=== PATIENT | female | born 1955 | race American Indian/Alaskan Native ===

== ENCOUNTER 2022-03-16 19:03 | Inpatient (IN) | payer MEDICARE, MEDICAID ==
--- NOTE | 2022-03-17 06:31 | Emergency Department Report ---
HPI - General Chief Complaint: Extremity Injury, Lower Time Seen by Provider: 03/17/22 06:13 - HPI HPI: Room 18 The patient is a six 6-year-old female present with a chief complaint of bilateral lower extremity edema. Patient states for the past 2 days she has had swelling in both lower extremities and dyspnea on exertion. Patient has a history of congestive heart failure and states she has been mostly compliant with the Lasix but did not take it yesterday. Patient admits to an episode of right-sided chest pressure yesterday but none today. Patient currently denies chest pain. ED Past Medical Hx - Past Medical History Hx Hypertension: Yes Hx Congestive Heart Failure: Yes Hx Diabetes: Yes Hx GERD: Yes Hx Arthritis: Yes Hx Seizures: Yes - Surgical History Past Surgical History?: No - Family History Family history: no significant - Social History Smoking Status: Never Smoker Substance Use Type: None (Denies illicit drug use) ED Review of Systems ROS: Stated complaint: BILATERAL LEG PAIN Other details as noted in HPI Constitutional: no symptoms reported Eyes: denies: eye pain ENT: denies: throat pain Respiratory: SOB with exertion Cardiovascular: chest pain Endocrine: no symptoms reported Gastrointestinal: denies: abdominal pain Genitourinary: denies: dysuria Musculoskeletal: denies: back pain Neurological: denies: headache Physical Exam - Physical Exam Vital Signs: Vital Signs 03/16/22 03/17/22 03/17/22 19:23 01:28 03:54 Temperature 98 F 98.3 F Pulse Rate 100 H 105 H 93 H Respiratory 16 18 29 H Rate Blood Pressure 108/85 Blood Pressure 130/111 [Right] O2 Sat by Pulse 95 97 98 Oximetry 03/17/22 03/17/22 03/17/22 04:00 04:16 04:30 Temperature Pulse Rate 114 H 97 H 96 H Respiratory 25 H 15 17 Rate Blood Pressure Blood Pressure [Right] O2 Sat by Pulse 98 96 94 Oximetry 03/17/22 04:46 Temperature Pulse Rate 105 H Respiratory 15 Rate Blood Pressure Blood Pressure [Right] O2 Sat by Pulse 95 Oximetry Physical Exam: GENERAL: The patient is well-developed well-nourished female lying on stretcher not appearing to be in acute distress. [] HEENT: Normocephalic. Atraumatic. Extraocular motions are intact. Patient has moist mucous membranes. NECK: Supple. Trachea midline CHEST/LUNGS: Clear to auscultation. There is no respiratory distress noted. HEART/CARDIOVASCULAR: Irregularly irregular. There is no tachycardia. There is no gallop rub or murmur. ABDOMEN: Abdomen is soft, nontender. Patient has normal bowel sounds. There is no abdominal distention. SKIN: There is no rash. There is 1+ right lower extremity pitting edema and trace left lower extremity pitting edema. There is no diaphoresis. NEURO: The patient is awake, alert, and oriented. The patient is cooperative. The patient has no focal neurologic deficits. The patient has normal speech. GCS 15 MUSCULOSKELETAL: There is no evidence of acute injury. ED Course Vital Signs 03/16/22 03/17/22 03/17/22 19:23 01:28 03:54 Temperature 98 F 98.3 F Pulse Rate 100 H 105 H 93 H Respiratory 16 18 29 H Rate Blood Pressure 108/85 Blood Pressure 130/111 [Right] O2 Sat by Pulse 95 97 98 Oximetry 03/17/22 03/17/22 03/17/22 04:00 04:16 04:30 Temperature Pulse Rate 114 H 97 H 96 H Respiratory 25 H 15 17 Rate Blood Pressure Blood Pressure [Right] O2 Sat by Pulse 98 96 94 Oximetry 03/17/22 04:46 Temperature Pulse Rate 105 H Respiratory 15 Rate Blood Pressure Blood Pressure [Right] O2 Sat by Pulse 95 Oximetry ED Medical Decision Making - Lab Data Result diagrams: 03/17/22 06:26 03/17/22 06:26 Laboratory Tests 03/17/22 03/17/22 03/17/22 06:26 06:26 06:26 WBC 8.9 RBC 5.06 H Hgb 15.1 H Hct 46.7 H MCV 92 MCH 30 MCHC 33 RDW 16.2 H Plt Count 182 Lymph % (Auto) 19.0 [place] % (Auto) 11.2 H Eos % (Auto) 0.4 Baso % (Auto) 0.5 Lymph # (Auto) 1.7 [place] # (Auto) 1.0 H Eos # (Auto) 0.0 Baso # (Auto) 0.0 Seg Neutrophils % 68.9 Seg Neutrophils # 6.1 Sodium 141 Potassium 4.0 Chloride 100.3 Carbon Dioxide 27 Anion Gap 18 BUN 29 H Creatinine 1.1 Estimated GFR 60 BUN/Creatinine Ratio 26 Glucose 175 H Calcium 9.8 Magnesium 1.90 Total Creatine Kinase 187 H CK-MB (CK-2) 1.8 CK-MB (CK-2) Rel Index 0.9 Troponin T 0.014 NT-Pro-B Natriuret Pep 4020 H TSH 2.000 Free T4 1.40 - EKG Data -: EKG Interpreted by Me EKG shows normal: sinus rhythm Rate: tachycardia (109 bpm) - EKG Data When compared to previous EKG there are: previous EKG unavailable Interpretation: other (Frequent ectopy) - Radiology Data Radiology results: report reviewed (Chest x-ray, bilateral lower extremity Doppler), image reviewed (Chest x-ray, bilateral lower extremity Doppler) interpreted by me: Chest [id number], pulmonary edema. No pneumothorax [address] [address] XRay Report Signed Patient: CJ GARCÍA MR#: [id number] 2 : 1955 Acct:[id number] Age/Sex: 66 / F ADM Date: 03/16/22 Loc: ED Attending Dr: Ordering Physician: KATHERINE FULTON MD Date of Service: 03/17/22 Procedure(s): XR chest 1V ap Accession Number(s): [id number] cc: KATHERINE FULTON MD Fluoro Time In Minutes: Chest single view INDICATION: Dyspnea IMPRESSION: Severe cardiomegaly with mild bilateral interstitial edema. Signer Name: Vic Han MD Signed: 03/17/2022 6:40 AM Workstation Name: [id number] Transcribed By: BC Dictated By: Vic Han MD Electronically Authenticated By: Vic Han MD Signed Date/Time: 03/17/22639 DD/ 9 TD/TT: [address] [address] Vascular Lab Report Signed Patient: CJ GARCÍA MR#: [id number] 2 : 1955 Acct:[id number] Age/Sex: 66 / F ADM Date: 03/16/22 Loc: ED Attending Dr: Ordering Physician: KATHERINE FULTON MD Date of Service: 03/17/22 Procedure(s): VL venous duplex LE BILAT Accession Number(s): [id number] cc: KATHERINE FULTON MD DUPLEX DOPPLER LOWER EXTREMITY VEINS, BILATERAL INDICATION: Pain and swelling. TECHNIQUE: Duplex doppler imaging was performed through the veins of both lower extremities using venous compression and other maneuvers. COMPARISON: None available. FINDINGS: Right Common femoral vein: Negative. Right Superficial femoral vein: Negative. Right Popliteal vein: Negative. Right Calf veins: Negative. Left Common femoral vein: Negative. Left Superficial femoral vein: Negative. Left Popliteal vein: Negative. Left Calf veins: Negative. Additional findings: None. IMPRESSION: Negative for DVT. Signer Name: Renny Agosto MD Signed: 03/17/2022 9:37 AM Workstation Name: [id number] Transcribed By: ES Dictated By: Renny Agosto MD Electronically Authenticated By: Renny Agosto MD Signed Date/Time: 03/17/22936 DD/ 6 TD/TT: - Differential Diagnosis CHF exacerbation, ACS, DVTs, peripheral edema Critical care attestation.: If time is entered above; I have spent that time in minutes in the direct care of this critically ill patient, excluding procedure time. ED Disposition Clinical Impression: CHF exacerbation Disposition: ADMITTED INPATIENT Is pt being admited?: Yes Does the pt Need Aspirin: Yes Condition: Fair Referrals: PRIMARY CARE, [Primary Care Provider] - 3-5 Days Time of Disposition: 09:49 (Care transferred to hospitalist Dr. Nowak (discussed with Dr. Esparza)) HEART Score - HEART Score History: Slightly suspicious EKG: Non-specific Age: > 65 Risk factors: > 3 risk factors or hx of atherosclerotic disease Troponin: Troponin T 0.014 ng/mL (0.00-0.029) 03/17/22 06:26 Troponin: < normal limit HEART Score: 5
--- NOTE | 2022-03-17 06:45 | XRay Report ---
Chest single view INDICATION: Dyspnea IMPRESSION: Severe cardiomegaly with mild bilateral interstitial edema. Signer Name: Vic Han MD Signed: 03/17/2022 6:40 AM Workstation Name: [email or web address]
[2022-03-17 07:07] LABS: Basophils % (Auto) 0.5 % (0.0-1.8); Eosinophils % (Auto) 0.4 % (0.0-4.3); Hematocrit 46.7 % (30.3-42.9); Hemoglobin 15.1 gm/dl (10.1-14.3); Lymphocytes # (Auto) 1.7 K/mm3 (1.2-5.4); Mean Corpuscular HGB Conc 33 % (30-34); Mean Corpuscular Volume 92 fl (79-97); Monocytes % (Auto) 11.2 % (0.0-7.3); Platelet Count 182 K/mm3 (140-440); Red Blood Count 5.06 M/mm3 (3.65-5.03); Red Cell Distribution Width 16.2 % (13.2-15.2)
[2022-03-17 07:33] LABS: Calcium 9.8 mg/dL (8.4-10.2); Creatine Kinase MB 1.8 ng/mL (0.0-4.0)
[2022-03-17 07:38] LABS: Free T4 (Free Thyroxine) 1.4 ng/dL (0.76-1.46)
[2022-03-17] MEDS ORDERED: FUROSEMIDE 40 MG/4 ML INJ IV ONE (07:42)
--- NOTE | 2022-03-17 09:41 | Vascular Lab Report ---
DUPLEX DOPPLER LOWER EXTREMITY VEINS, BILATERAL INDICATION: Pain and swelling. TECHNIQUE: Duplex doppler imaging was performed through the veins of both lower extremities using venous tank miguel and other maneuvers. COMPARISON: None available. FINDINGS: Right Common femoral vein: Negative. Right Superficial femoral vein: Negative. Right Popliteal vein: Negative. Right Calf veins: Negative. Left Common femoral vein: Negative. Left Superficial femoral vein: Negative. Left Popliteal vein: Negative. Left Calf veins: Negative. Additional findings: None. IMPRESSION: Negative for DVT. Signer Name: Renny Agosto MD Signed: 03/17/2022 9:37 AM Workstation Name: [email or web address]
[2022-03-17] MEDS ORDERED: ASPIRIN 325 MG TAB PO ONE (09:54)
[2022-03-17] MEDS ORDERED: MORPHINE 2 MG/1 ML INJ IV PRN (10:17)
[2022-03-17] MEDS ORDERED: ONDANSETRON 4 MG/2 ML INJ IV PRN ×2 (10:17→12:00)
[2022-03-17] MEDS ORDERED: ACETAMINOPHEN 325 MG TAB PO PRN ×2 (10:17→12:00)
--- NOTE | 2022-03-17 10:50 | History and Physical Report ---
History of Present Illness Date of admission: 03/17/22 10:17 Chief complaint: My legs are swollen History of present illness: 66 YO Female with OA, CHF, HTN, GERD, Seizure Disorder, DM, Obesity Hypoventilation Syndrome, Vascular Dementia with Tangential thinking, Cerebral Atherosclerosis presents to ED for evaluation. Patient reports "my legs hurt". Patient states that over the past 1 week she has experienced pain and swelling to her lower extremities. Patient knowledges decreased exercise tolerance, shortness of breath, dyspnea on exertion, dyspnea at rest, orthopnea, paroxysmal nocturnal dyspnea, as well as 10 pound weight gain over the past 1 week. Patient acknowledges noncompliance with diuretic therapy. Patient also acknowledges noncompliance with low-sodium diet. Additional history provided by the patient's son who was negative available via telephone for interview. Patient's son reports that the patient experienced increased weakness and confusion over the past several weeks. EMS was notified and upon arrival the patient was found to be in distress and subsequent transported to [facility] for further care and evaluation of the aforementioned symptoms. The patient was seen and evaluated in the emergency department. All lab and imaging studies reviewed. Patient found to have clinical syndrome consistent with CHF decompensation. Patient admitted to telemetry and initiated on CHF protocol. Cardiology team consulted in ED. Patient denies fever, chills, chest pain, palpitation, productive cough, skin rash, recent contact, or known exposure to COVID-19. No prior admission for review. No medication listed at time of admission for reconciliation. Advanced care planning conducted in ED. Past History Past Medical History: arthritis, GERD, heart failure, hypertension, other (See HPI) Past Surgical History: No surgical history, Other (Reviewed) Social history: single. denies: smoking, alcohol abuse, prescription drug abuse Family history: diabetes, hypertension Medications and Allergies Allergies Allergy/AdvReac Type Severity Reaction Status Date / Time No Known Allergies Allergy Unverified 03/16/22 19:27 Active Meds: Active Medications Acetaminophen (Acetaminophen 325 Mg Tab) 650 mg PO Q4H PRN PRN Reason: Pain MILD(1-3)/Fever >100.5/LIM Morphine Sulfate (Morphine 2 Mg/1 Ml Inj) 2 mg IV Q4H PRN PRN Reason: Pain, Moderate (4-6) Ondansetron HCl (Ondansetron 4 Mg/2 Ml Inj) 4 mg IV Q8H PRN PRN Reason: Nausea And Vomiting Sodium Chloride (Sodium Chloride 0.9% 10 Ml Flush Syringe) 10 ml IV BID MELVIN Sodium Chloride (Sodium Chloride 0.9% 10 Ml Flush Syringe) 10 ml IV PRN PRN PRN Reason: LINE FLUSH Review of Systems Constitutional: weight gain, weakness, no weight loss, no fever, no chills, no sweats Ears, nose, mouth and throat: no ear pain, no ear discharge, no tinnitis, no d ecreased hearing, no nasal congestion Cardiovascular: orthopnea, shortness of breath, dyspnea on exertion, leg edema, decreased exercise tolerance Respiratory: no cough, no cough with sputum, no excessive sputum, no hemoptysis Gastrointestinal: no abdominal pain, no nausea, no vomiting, no diarrhea, no constipation Genitourinary Female: no pelvic pain, no flank pain, no dysuria, no urinary frequency, no urgency Rectal: no pain, no incontinence Musculoskeletal: no neck stiffness, no neck pain, no shooting arm pain, no arm numbness/tingling, no low back pain, no shooting leg pain Integumentary: no rash, no pruritis, no redness, no sores, no wounds Neurological: no head injury, no transient paralysis, no paralysis, no weakness, no parathesias, no numbness, no tingling Psychiatric: no anxiety, no memory loss, no insomnia, no change in appetite, no change in libido Endocrine: no cold intolerance, no heat intolerance, no polyphagia, no excessive thirst, no polydipsia, no polyuria, no nocturia Hematologic/Lymphatic: no easy bruising, no easy bleeding Allergic/Immunologic: no urticaria, no allergic rhinitis, no wheezing Exam - Constitutional Vitals: Temp Pulse Resp BP Pulse Ox 98.3 F 88 16 111/81 100 03/17/22 01:28 03/17/22 09:29 03/17/22 09:29 03/17/22 09:29 03/17/22 09:29 General appearance: Present: mild distress, obese - EENT Eyes: Present: PERRL ENT: hearing intact, clear oral mucosa, hearing decreased - Neck Neck: Present: supple, normal ROM - Respiratory Respiratory effort: normal Respiratory: bilateral: diminished, rales - Cardiovascular Heart Sounds: Present: S1 & S2. Absent: rub, click - Extremities Extremity abnormal: edema Peripheral Pulses: within normal limits - Abdominal General gastrointestinal: Present: soft, non-tender, non-distended, normal bowel sounds Female genitourinary: Present: normal - Integumentary Integumentary: Present: clear, warm, dry - Musculoskeletal Musculoskeletal: generalized weakness - Psychiatric Psychiatric: no appropriate mood/affect, no intact judgment & insight, no memory intact, cooperative - Neurologic Neurologic: CNII-XII intact, no focal deficits, moves all extremities, no gait normal HEART Score - HEART Score EKG: Non-specific Age: > 65 Risk factors: > 3 risk factors or hx of atherosclerotic disease Troponin: Troponin T 0.014 ng/mL (0.00-0.029) 03/17/22 06:26 Troponin: < normal limit Results - Labs CBC & Chem 7: 03/17/22 06:26 03/17/22 06:26 Labs: Abnormal lab results 03/17/22 03/17/22 Range/Units 06:26 06:26 RBC 5.06 H (3.65-5.03) M/mm3 Hgb 15.1 H (10.1-14.3) gm/dl Hct 46.7 H (30.3-42.9) % RDW 16.2 H (13.2-15.2) % [place] % (Auto) 11.2 H (0.0-7.3) % [place] # (Auto) 1.0 H (0.0-0.8) K/mm3 BUN 29 H (7-17) mg/dL Glucose 175 H (65-100) mg/dL Total Creatine Kinase 187 H (30-135) units/L NT-Pro-B Natriuret Pep 4020 H (0-900) pg/mL Assessment and Plan - Patient Problems (1) CHF exacerbation Current Visit: Yes Status: Acute Qualifiers: Heart failure type: systolic Qualified Code(s): I50.23 - Acute on chronic systolic (congestive) heart failure Plan to address problem: CHF protocol: Strict I's/O, monitor urine output every shift, daily weight, afterload reduction, blood pressure control, diuresis, monitor fluid balance, echocardiogram ordered and pending at time of admission, cardiology team consulted, thyroid panel, magnesium level. (2) Obesity hypoventilation syndrome Current Visit: Yes Status: Acute Plan to address problem: Balanced diet, increase physical activity discharge, outpatient pulmonary follow-up for sleep study (3) Hypertension Current Visit: Yes Status: Acute Qualifiers: Hypertension type: primary hypertension Qualified Code(s): I10 - Essential (primary) hypertension Plan to address problem: Monitor blood pressure every shift, continue medical management. (4) Diabetes Current Visit: Yes Status: Acute Plan to address problem: Consistent carbohydrate diet, Accu-Chek, insulin protocol, hypoglycemia protocol. (5) Vascular dementia Current Visit: Yes Status: Acute Qualifiers: Dementia behavioral disturbance: with behavioral disturbance Qualified Code(s): F01.51 - Vascular dementia with behavioral disturbance Plan to address problem: Verbal prompting, verbal redirection, benzodiazepine therapy as clinically indicated. (6) Cerebral atherosclerosis Current Visit: Yes Status: Acute Plan to address problem: Risk factor reduction therapy, CT scan brain without contrast. (7) DVT prophylaxis Current Visit: Yes Status: Acute Plan to address problem: SCDs bilateral lower extremities while in bed (8) Advance care planning Current Visit: Yes Status: Acute Plan to address problem: Disease education conducted, care plan discussed, diagnoses discussed, prognosis discussed, patient is full code. Patient family acknowledges understanding and agreement with care plan, +30 minutes. (9) Preventative health care Current Visit: Yes Status: Acute Plan to address problem: Patient and family counseled regarding home safety, risk factor reduction, balanced diet, medication compliance. Outpatient follow-up with primary care physician for all age and risk factor appropriate screening test. +30 minutes.
[2022-03-17] MEDS ORDERED: oxyCODONE /ACETAMINOPHEN 5-325MG TAB PO PRN (12:00)
[2022-03-17] MEDS ORDERED: ALBUTEROL 2.5 MG/3 ML NEBU IH PRN (12:00)
[2022-03-17] MEDS ORDERED: HYDROmorphone 0.5 MG/0.5 ML INJ IV PRN (12:00)
--- NOTE | 2022-03-17 14:40 | Consultation ---
History of Present Illness Consult date: 03/17/22 Requesting physician: MICHELLE MOORE Consult reason: congestive heart failure History of present illness: Patient is 66-year-old female with a reported past medical history of hypertension, CHF, diabetes, obesity, vascular dementia who came to the ED with a complaint of leg pain, bilateral lower extremity edema, and shortness of breath x1 week. History is taken from chart due to patient's mental status at time of interview. Per documentation patient's son reported that patient was having weakness and confusion over past several week along with the above- mentioned symptom. Patient was transported to the ED for further evaluation. In the ED patient was found to have elevated BNP and CXR showed cardiomegaly with mild bilateral interstitial edema. At time of interview patient denies chest pain, orthopnea, palpitations, Past History Past Medical History: arthritis, GERD, heart failure, hypertension, other (See HPI) Past Surgical History: No surgical history, Other (Reviewed) Social history: single. denies: smoking, alcohol abuse, prescription drug abuse Family history: diabetes, hypertension Medications and Allergies Allergies Allergy/AdvReac Type Severity Reaction Status Date / Time No Known Allergies Allergy Unverified 03/16/22 19:27 Active Meds: Active Medications Acetaminophen (Acetaminophen 325 Mg Tab) 650 mg PO Q4H PRN PRN Reason: Pain MILD(1-3)/Fever >100.5/LIM Albuterol (Albuterol 2.5 Mg/3 Ml Nebu) 2.5 mg IH Q4HRT PRN PRN Reason: Shortness Of Breath Furosemide (Furosemide 20 Mg/2 Ml Inj) 20 mg IV 0600,1800 MELVIN Stop: 03/18/22 00:01 Hydromorphone HCl (Hydromorphone 0.5 Mg/0.5 Ml Inj) 0.5 mg IV Q23H PRN PRN Reason: Pain , Severe (7-10) Metoprolol Tartrate (Metoprolol Tartrate 25 Mg Tab) 12.5 mg PO BID MELVIN Morphine Sulfate (Morphine 2 Mg/1 Ml Inj) 2 mg IV Q4H PRN PRN Reason: Pain, Moderate (4-6) Ondansetron HCl (Ondansetron 4 Mg/2 Ml Inj) 4 mg IV Q8H PRN PRN Reason: Nausea And Vomiting Oxycodone/Acetaminophen (Oxycodone /Acetaminophen 5-325mg Tab) 1 tab PO Q16H PRN PRN Reason: Pain, Moderate (4-6) Sodium Chloride (Sodium Chloride 0.9% 10 Ml Flush Syringe) 10 ml IV BID MELVIN Sodium Chloride (Sodium Chloride 0.9% 10 Ml Flush Syringe) 10 ml IV PRN PRN PRN Reason: LINE FLUSH Stop: 03/22/22 10:56 Review of Systems All systems: negative Physical Examination Vital Signs Temp Pulse Resp BP Pulse Ox 98 F 100 H 16 130/111 95 03/16/22 19:23 03/16/22 19:23 03/16/22 19:23 03/16/22 19:23 03/16/22 19:23 General appearance: no acute distress, other (Patient appears confused alert to self) HEENT: Positive: Mucus Membranes Moist Cardiac: Positive: Reg Rate and Rhythm Lungs: Positive: clear to auscultation, Normal Breath Sounds Neuro: Positive: Grossly Intact Abdomen: Positive: Soft Skin: Negative: Rash, Suspicious Lesions, Ulceration Extremities: Present: upper extr. pulses, edema Results 03/17/22 06:26 03/17/22 06:26 Cardiac Enzymes 03/17/22 Range/Units 06:26 CK-MB (CK-2) 1.8 (0.0-4.0) ng/mL CBC 03/17/22 Range/Units 06:26 WBC 8.9 (4.5-11.0) K/mm3 RBC 5.06 H (3.65-5.03) M/mm3 Hgb 15.1 H (10.1-14.3) gm/dl Hct 46.7 H (30.3-42.9) % Plt Count 182 (140-440) K/mm3 Lymph # (Auto) 1.7 (1.2-5.4) K/mm3 [place] # (Auto) 1.0 H (0.0-0.8) K/mm3 Eos # (Auto) 0.0 (0.0-0.4) K/mm3 Baso # (Auto) 0.0 (0.0-0.1) K/mm3 Comprehensive Metabolic Panel 03/17/22 Range/Units 06:26 Sodium 141 (137-145) mmol/L Potassium 4.0 (3.6-5.0) mmol/L Chloride 100.3 (98-107) mmol/L Carbon Dioxide 27 (22-30) mmol/L BUN 29 H (7-17) mg/dL Creatinine 1.1 (0.6-1.2) mg/dL Glucose 175 H (65-100) mg/dL Calcium 9.8 (8.4-10.2) mg/dL - Imaging and Cardiology Echo: pending EKG: report reviewed, image reviewed EKG interpretations - Telemetry EKG Rhythm: Sinus Rhythm - EKG Sinus rhythms and dysrhythmias: sinus rhythm Ventricular dysrhythmias: ventricular premature com Repolarization changes or abnormalities: nonspecific abnormality, ST segment, and/or T wave Assessment and Plan Patient is 66-year-old female with a reported past medical history of hypertension, CHF, diabetes, obesity, vascular dementia who came to the ED with a complaint of leg pain, bilateral lower extremity edema, and shortness of breath x1 week and confusion over several weaks AMS-CT head pending CHF Hypertension Diabetes Obesity Plan: EKG shows sinus tach with PVCs and nonspecific T abnormalities. No acute ischemic changes. Troponins negative x1. Patient denies any complaints of chest pain BNP noted to be elevated and CXR shows mild interstitial edema. Agree with Lasix 20 mg IV twice daily for diuresis. We will stop Lasix after tonight Repeat BMP in the a.m., daily weights, strict I&O's, close monitoring of renal Will initiate low-dose metoprolol 12.5 mg p.o. twice daily. Will titrate as needed Will hold KATHARINA or ARB due to soft BP Attempted to reach out to patient's son who is listed as next of kin however no answer. We will attempt to reach out to patient's son tomorrow Preliminary echo results show EF of 10% with thrombus in LV will initiate anticoagulation with Lovenox with bridge therapy to Coumadin pharmacy to dose Patient for cardiac cath in the a.m. Patient to be n.p.o. after midnight Patient seen in conjunction with Dr. Bello who agrees with this plan of care - Patient Problems (1) CHF exacerbation Current Visit: Yes Status: Acute Qualifiers: Heart failure type: systolic Qualified Code(s): I50.23 - Acute on chronic systolic (congestive) heart failure (2) Obesity hypoventilation syndrome Current Visit: Yes Status: Acute (3) Hypertension Current Visit: Yes Status: Acute Qualifiers: Hypertension type: primary hypertension Qualified Code(s): I10 - Essential (primary) hypertension (4) Diabetes Current Visit: Yes Status: Acute (5) Vascular dementia Current Visit: Yes Status: Acute Qualifiers: Dementia behavioral disturbance: with behavioral disturbance Qualified Code(s): F01.51 - Vascular dementia with behavioral disturbance
--- NOTE | 2022-03-17 15:05 | Cat Scan Report ---
CT head/brain wo con INDICATION: confusion. TECHNIQUE: Routine CT head without contrast. All CT scans at this location are performed using CT dos e reduction for ALARA by means of automated exposure control. COMPARISON: None. FINDINGS: BRAIN / INTRACRANIAL CONTENTS: No acute hemorrhage, mass effect, midline shift, or hydrocephalus. No appreciable acute large territorial or lacunar infarct. 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 Mild global atrophy. ORBITS: No significant abnormality of visualized orbits. SINUSES / MASTOIDS: No significant abnormality of visualized sinuses and mastoid air cells. ADDITIONAL FINDINGS: None. IMPRESSION: 1. No acute intracranial abnormality. Signer Name: Rashaun Marie MD Signed: 03/17/2022 3:01 PM Workstation Name: [id number]
[2022-03-17] MEDS: METOPROLOL TARTRATE 25 MG TAB PO SCH ×2 (15:31→21:17)
[2022-03-17] MEDS ORDERED: FUROSEMIDE 20 MG/2 ML INJ IV SCH (18:00)
[2022-03-17] MEDS ORDERED: SODIUM CHLORIDE 0.9% 500 ML 500 ML IV SCH (19:00)
[2022-03-17] MEDS ORDERED: ENOXAPARIN 100 MG/1 ML INJ SUB-Q ONE (19:00)
[2022-03-18 05:27] LABS: Basophils # (Auto) 0.1 K/mm3 (0.0-0.1); Basophils % (Auto) 0.6 % (0.0-1.8); Eosinophils # (Auto) 0.1 K/mm3 (0.0-0.4); Eosinophils % (Auto) 1.4 % (0.0-4.3); Hemoglobin 14.6 gm/dl (10.1-14.3); Lymphocytes # (Auto) 2.2 K/mm3 (1.2-5.4); Lymphocytes % (Auto) 22.5 % (13.4-35.0); Mean Corpuscular HGB Conc 32 % (30-34); Mean Corpuscular Volume 93 fl (79-97); Monocytes # (Auto) 0.8 K/mm3 (0.0-0.8); Monocytes % (Auto) 8.8 % (0.0-7.3); Platelet Count 203 K/mm3 (140-440); Red Blood Count 4.93 M/mm3 (3.65-5.03); Red Cell Distribution Width 16.2 % (13.2-15.2)
[2022-03-18 05:34] LABS: INR 1.19 (0.87-1.13)
[2022-03-18 05:39] LABS: Partial Thromboplastin Time 30.1 Sec. (24.2-36.6)
[2022-03-18 05:45] LABS: Calcium 9.3 mg/dL (8.4-10.2)
[2022-03-18] MEDS: METOPROLOL TARTRATE 25 MG TAB PO SCH ×3 (08:29→21:15)
--- NOTE | 2022-03-18 11:22 | Progress Note ---
Assessment and Plan Assessment and plan: 66 YO Female with OA, CHF, HTN, GERD, Seizure Disorder, DM, Obesity Hypoventilation Syndrome, Vascular Dementia with Tangential thinking, Cerebral Atherosclerosis presents to ED for evaluation. Patient reports "my legs hurt". Patient states that over the past 1 week she has experienced pain and swelling to her lower extremities. Patient knowledges decreased exercise tolerance, shortness of breath, dyspnea on exertion, dyspnea at rest, orthopnea, paroxysmal nocturnal dyspnea, as well as 10 pound weight gain over the past 1 week. Patient acknowledges noncompliance with diuretic therapy. Patient also acknowledges noncompliance with low-sodium diet. Additional history provided by the patient's son who was negative available via telephone for interview. Patient's son reports that the patient experienced increased weakness and confusion over the past several weeks. EMS was notified and upon arrival the patient was found to be in distress and subsequent transported to [facility] for further care and evaluation of the aforementioned symptoms. The patient was seen and evaluated in the emergency department. All lab and imaging studies reviewed. Patient found to have clinical syndrome consistent with CHF decompensation. Patient admitted to telemetry and initiated on CHF protocol. Cardiology team consulted in ED. Patient denies fever, chills, chest pain, palpitation, productive cough, skin rash, recent contact, or known exposure to COVID-19. No prior admission for review. No medication listed at time of admission for reconciliation. Advanced care planning conducted in ED. Past History Past Medical History: arthritis, GERD, heart failure, hypertension, other (See HPI) Past Surgical History: No surgical history, Other (Reviewed) Social history: single. denies: smoking, alcohol abuse, prescription drug abuse Family history: diabetes, hypertension 03/18: Patient started on goal-directed medical therapy for congestive heart failure. I did provide 15 minutes of counseling on need to lose weight which she verbalized understanding. She still has some mild evidence of intermittent confusion but clear this morning with clear understanding of her overall medical condition and needs. However when cardiology did reevaluate the patient she was confused about some details. . Lasix held this morning in anticipation for the cardiac catheterization however the latter has been held. Discussed with son at bedside. PT OT placed due to reported mobility issues at home. On echocardiogram cardiology was noted a large apical thrombus. As a result cardiac catheterization has been postponed. Patient has been started on heparin drip and interventional cardiology is being asked to consider a RADHA. Further management plan will be determined on this. Patient remains at high risk at this time. Neurology is being consulted for the encephalopathy to ensure no acute process ongoing. CT of the head was negative. Diet restarted (1) CHF exacerbation Current Visit: Yes Status: Acute Qualifiers: Heart failure type: systolic Qualified Code(s): I50.23 - Acute on chronic systolic (congestive) heart failure Plan to address problem: CHF protocol: Strict I's/O, monitor urine output every shift, daily weight, afterload reduction, blood pressure control, diuresis, monitor fluid balance, echocardiogram ordered and pending at time of admission, cardiology team consulted, thyroid panel, magnesium level. (2) Obesity hypoventilation syndrome Current Visit: Yes Status: Acute Plan to address problem: Balanced diet, increase physical activity discharge, outpatient pulmonary follow-up for sleep study (3) Hypertension Current Visit: Yes Status: Acute Qualifiers: Hypertension type: primary hypertension Qualified Code(s): I10 - Essential (primary) hypertension Plan to address problem: Monitor blood pressure every shift, continue medical management. (4) Diabetes Current Visit: Yes Status: Acute Plan to address problem: Consistent carbohydrate diet, Accu-Chek, insulin protocol, hypoglycemia protocol. (5) Vascular dementia with possible exacerbated metabolic encephalopathy Current Visit: Yes Status: Acute Qualifiers: Dementia behavioral disturbance: with behavioral disturbance Qualified Code(s): F01.51 - Vascular dementia with behavioral disturbance Plan to address problem: Verbal prompting, verbal redirection, benzodiazepine therapy as clinically indicated. (6) Cerebral atherosclerosis Current Visit: Yes Status: Acute Plan to address problem: Risk factor reduction therapy, CT scan brain without contrast. (7) ataxic gait (8) Morbid obesity BMI 47.6 (9) DVT prophylaxis Current Visit: Yes Status: Acute Plan to address problem: SCDs bilateral lower extremities while in bed (10) Advance care planning Current Visit: Yes Status: Acute Plan to address problem: Disease education conducted, care plan discussed, diagnoses discussed, prognosis discussed, patient is full code. Patient family acknowledges understanding and agreement with care plan, +30 minutes. (11) Preventative health care Current Visit: Yes Status: Acute Plan to address problem: Patient and family counseled regarding home safety, risk factor reduction, balanced diet, medication compliance. Outpatient follow-up with primary care physician for all age and risk factor appropriate screening test. +30 minutes. Critical care time 35 minutes History Interval history: Patient seen and examined this morning remains on oxygen reports improvement in symptoms, still with intermittent confusion. No acute event reported overnight. Hospitalist Physical - Physical exam Narrative exam: VITAL SIGNS: Reviewed. GENERAL: The patient appears normally developed, morbidly obese, mild respiratory distress. Vital signs as documented. HEAD: No signs of head trauma. EYES: Pupils are equal. Extraocular motions intact. EARS: Hearing grossly intact. MOUTH: Oropharynx is normal. NECK: No adenopathy, no JVD. CHEST: Chest with crackles breath sounds bilaterally. No wheezes. CARDIAC: Regular rate and rhythm. S1 and S2, without murmurs, gallops, or rubs. VASCULAR: +1 pitting edema. Peripheral pulses normal and equal in all extremities. ABDOMEN: Soft, non tender and non distended. Large abdominal girth no rebound or guarding, and no masses palpated. Bowel Sounds normal. MUSCULOSKELETAL: Good range of motion of all major joints. Extremities without clubbing, cyanosis. +1 pitting edema bilateral lower extremities. NEUROLOGIC EXAM: Alert and oriented x 3 although intermittently confused no focal sensory or strength deficits. Speech a bit sluggish. Follows commands. PSYCHIATRIC: Mood normal. SKIN: detail exam as documented in skin assessment - Constitutional Vitals: Temp Pulse Resp BP Pulse Ox 97.4 F L 103 H 19 106/69 96 03/18/22 03:44 03/18/22 08:29 03/18/22 03:44 03/18/22 08:29 03/18/22 10:01 General appearance: Present: no acute distress, other (Patient appears confused alert to self) HEART Score - HEART Score EKG: Non-specific Age: > 65 Risk factors: > 3 risk factors or hx of atherosclerotic disease Troponin: Troponin T 0.014 ng/mL (0.00-0.029) 03/17/22 06:26 Troponin: < normal limit Results - Labs CBC & Chem 7: 03/18/22 05:09 03/18/22 05:09 Labs: Laboratory Last Values WBC 9.6 K/mm3 (4.5-11.0) 03/18/22 05:09 RBC 4.93 M/mm3 (3.65-5.03) 03/18/22 05:09 Hgb 14.6 gm/dl (10.1-14.3) H 03/18/22 05:09 Hct 46.0 % (30.3-42.9) H 03/18/22 05:09 MCV 93 fl (79-97) 03/18/22 05:09 MCH 30 pg (28-32) 03/18/22 05:09 MCHC 32 % (30-34) 03/18/22 05:09 RDW 16.2 % (13.2-15.2) H 03/18/22 05:09 Plt Count 203 K/mm3 (140-440) 03/18/22 05:09 Lymph % (Auto) 22.5 % (13.4-35.0) 03/18/22 05:09 [place] % (Auto) 8.8 % (0.0-7.3) H 03/18/22 05:09 Eos % (Auto) 1.4 % (0.0-4.3) 03/18/22 05:09 Baso % (Auto) 0.6 % (0.0-1.8) 03/18/22 05:09 Lymph # (Auto) 2.2 K/mm3 (1.2-5.4) 03/18/22 05:09 [place] # (Auto) 0.8 K/mm3 (0.0-0.8) 03/18/22 05:09 Eos # (Auto) 0.1 K/mm3 (0.0-0.4) 03/18/22 05:09 Baso # (Auto) 0.1 K/mm3 (0.0-0.1) 03/18/22 05:09 Seg Neutrophils % 66.7 % (40.0-70.0) 03/18/22 05:09 Seg Neutrophils # 6.4 K/mm3 (1.8-7.7) 03/18/22 05:09 PT 16.5 Sec. (12.2-14.9) H 03/18/22 05:09 INR 1.19 (0.87-1.13) H 03/18/22 05:09 APTT 30.1 Sec. (24.2-36.6) 03/18/22 05:09 Sodium 140 mmol/L (137-145) 03/18/22 05:09 Potassium 4.8 mmol/L (3.6-5.0) 03/18/22 05:09 Chloride 100.5 mmol/L (98-107) 03/18/22 05:09 Carbon Dioxide 27 mmol/L (22-30) 03/18/22 05:09 Anion Gap 17 mmol/L 03/18/22 05:09 BUN 32 mg/dL (7-17) H 03/18/22 05:09 Creatinine 1.2 mg/dL (0.6-1.2) 03/18/22 05:09 Estimated GFR 54 ml/min 03/18/22 05:09 BUN/Creatinine Ratio 27 % 03/18/22 05:09 Glucose 123 mg/dL (65-100) H 03/18/22 05:09 POC Glucose 114 mg/dL (70-105) H 03/18/22 08:00 Calcium 9.3 mg/dL (8.4-10.2) 03/18/22 05:09 Magnesium 1.80 mg/dL (1.7-2.3) 03/17/22 13:09 Total Creatine Kinase 187 units/L (30-135) H 03/17/22 06:26 CK-MB (CK-2) 1.8 ng/mL (0.0-4.0) 03/17/22 06:26 CK-MB (CK-2) Rel Index 0.9 (0-4) 03/17/22 06:26 Troponin T 0.014 ng/mL (0.00-0.029) 03/17/22 06:26 NT-Pro-B Natriuret Pep 4020 pg/mL (0-900) H 03/17/22 06:26 TSH 2.000 mlU/mL (0.270-4.200) 03/17/22 06:26 Free T4 1.40 ng/dL (0.76-1.46) 03/17/22 06:26 Lloyd/IV: Voiding Method External Female Catheter Active Medications - Current Medications Current Medications: Generic Name Dose Route Start Last Admin Trade Name Freq PRN Reason Stop Dose Admin Acetaminophen 650 mg 03/17/22 12:00 Acetaminophen 325 Mg Tab PO Q4H PRN Pain MILD(1-3)/Fever >100.5/LIM Albuterol 2.5 mg 03/17/22 12:00 Albuterol 2.5 Mg/3 Ml Nebu IH Q4HRT PRN Shortness Of Breath Heparin Sodium (Porcine) 4,700 unit 03/18/22 11:02 Heparin 10,000 Units/10 Ml Vial 40 unit/kg (4700 unit) 03/18/22 11:03 IV ONCE ONE Heparin Sodium (Porcine) 4,700 unit 03/18/22 11:02 Heparin 10,000 Units/10 Ml Vial 40 unit/kg (4700 unit) IV Q6H PRN Anti-Xa Assay < 0.1 units/ml Hydromorphone HCl 0.5 mg 03/17/22 12:00 Hydromorphone 0.5 Mg/0.5 Ml Inj IV Q23H PRN Pain , Severe (7-10) Heparin Sodium/Sodium Chloride 25,000 unit in 500 mls @ 35.379 mls/hr 03/18/22 12:00 Heparin/ 0.45% Nacl-25,000 Unit/500 Ml IV TITR MELVIN Protocol 15 UNITS/KG/HR Metoprolol Tartrate 12.5 mg 03/17/22 15:00 03/18/22 08:29 Metoprolol Tartrate 25 Mg Tab PO 12.5 mg BID MELVIN Administration Morphine Sulfate 2 mg 03/17/22 10:17 Morphine 2 Mg/1 Ml Inj IV Q4H PRN Pain, Moderate (4-6) Ondansetron HCl 4 mg 03/17/22 12:00 Ondansetron 4 Mg/2 Ml Inj IV Q8H PRN Nausea And Vomiting Oxycodone/Acetaminophen 1 tab 03/17/22 12:00 03/17/22 21:14 Oxycodone /Acetaminophen 5-325mg Tab PO 1 tab Q16H PRN Administration Pain, Moderate (4-6) Sodium Chloride 10 ml 03/17/22 22:00 03/17/22 21:18 Sodium Chloride 0.9% 10 Ml Flush Syringe IV 10 ml BID MELVIN Administration Sodium Chloride 10 ml 03/17/22 10:57 Sodium Chloride 0.9% 10 Ml Flush Syringe IV 03/22/22 10:56 PRN PRN LINE FLUSH
[2022-03-18] MEDS ORDERED: HEPARIN 10,000 UNITS/10 ML VIAL IV PRN (12:00)
[2022-03-18] MEDS ORDERED: HEPARIN 10,000 UNITS/10 ML VIAL IV SCH (12:00)
[2022-03-18 14:58] LABS: Hematocrit 44.8 % (30.3-42.9); Hemoglobin 14.3 gm/dl (10.1-14.3)
--- NOTE | 2022-03-18 15:00 | Progress Note ---
Assessment and Plan Patient is 66-year-old female with a reported past medical history of hypertension, CHF, diabetes, obesity, vascular dementia who came to the ED with a complaint of leg pain, bilateral lower extremity edema, and shortness of breath x1 week and confusion over several weaks AMS- HFrEf Hypertension Diabetes Obesity LV Thrombus Dementia? Echo 03/17/2022-EF 15 to 20%. LV is moderately dilated. Severe global hypokinesis of LV. Right ventricular systolic function is mildly reduced. Right ventricle is dilated. Mild to moderate tricuspid regurgitation. Large mobile mass in inferobasal area thrombus noted in LV Plan: Patient remains with AMS BNP noted to be elevated and CXR shows mild interstitial edema. Patient appears euvolemic on exam and denies any complaints of shortness of shortness of breath we will hold diuresis Continue low-dose metoprolol 12.5 mg p.o. twice daily. Will titrate as needed Will hold KATHARINA or ARB due to soft BP Echo results show thrombus in LV will initiate anticoagulation with heparin drip with bridge therapy to Coumadin pharmacy to dose Unable to obtain consents this a.m. cardiac cath canceled. Later this a.m. was able to speak with patient's son and who reported patient has a history of heart failure they were unsure of patient's medications, or cardiologists however did report patient follows with [facility] in [place]. Requested records from patient's cardiology office Due to patient altered mental status primary team may wish to consider neurology consult Plan of care discussed with patient's son who verbalized understanding and acknowledgment Patient seen in conjunction with Dr. Gallardo who agrees with this plan of care - Patient Problems (1) CHF exacerbation Current Visit: Yes Status: Acute Qualifiers: Heart failure type: systolic Qualified Code(s): I50.23 - Acute on chronic systolic (congestive) heart failure (2) Obesity hypoventilation syndrome Current Visit: Yes Status: Acute (3) Hypertension Current Visit: Yes Status: Acute Qualifiers: Hypertension type: primary hypertension Qualified Code(s): I10 - Essential (primary) hypertension (4) Diabetes Current Visit: Yes Status: Acute (5) Vascular dementia Current Visit: Yes Status: Acute Qualifiers: Dementia behavioral disturbance: with behavioral disturbance Qualified Code(s): F01.51 - Vascular dementia with behavioral disturbance Subjective Date of service: 03/18/22 Principal diagnosis: HfrEF, LV thrombus Interval history: Patient resting in bed in no acute distress. Patient remains altered mental status Sinus 90s on monitor with PVCs Objective Vital Signs Temp Pulse Resp BP BP Pulse Ox 03/18/22 12:17 98.0 F 80 18 101/72 95 03/18/22 10:01 96 03/18/22 08:29 103 H 106/69 03/18/22 03:44 97.4 F L 103 H 19 106/69 97 03/17/22 23:41 97.4 F L 103 H 18 117/77 96 03/17/22 23:00 96 03/17/22 21:17 104 H 127/78 03/17/22 19:32 97.4 F L 104 H 18 127/78 95 03/17/22 19:20 87 20 169/79 96 03/17/22 19:16 169/79 03/17/22 19:00 89 24 159/93 95 03/17/22 18:50 88 25 H 158/81 95 03/17/22 18:40 91 H 22 158/81 95 03/17/22 18:30 90 24 159/93 95 03/17/22 18:20 89 25 H 159/93 94 03/17/22 18:10 98 H 32 H 159/93 91 03/17/22 18:00 87 18 159/93 95 03/17/22 17:50 83 17 159/93 98 03/17/22 17:40 88 20 159/93 99 03/17/22 17:30 78 16 159/93 99 03/17/22 17:20 84 21 159/93 99 03/17/22 17:10 88 22 159/93 98 03/17/22 17:00 89 12 164/104 99 03/17/22 16:50 81 17 164/104 98 03/17/22 16:40 82 18 149/88 96 03/17/22 16:30 89 19 149/88 98 03/17/22 16:20 85 19 149/88 99 03/17/22 16:10 86 18 149/88 99 03/17/22 16:00 93 H 20 149/88 99 03/17/22 15:50 88 16 149/88 98 03/17/22 15:40 86 17 149/88 98 03/17/22 15:30 88 21 148/71 98 03/17/22 15:20 85 20 148/71 98 03/17/22 15:10 90 20 187/96 99 03/17/22 15:00 148/ 99 - Physical Examination General: No Apparent Distress HEENT: Positive: Mucus Membranes Moist Neck: Positive: trachea midline Cardiac: Positive: Reg Rate and Rhythm Lungs: Positive: Normal Breath Sounds Neuro: Positive: Grossly Intact Abdomen: Positive: Soft Skin: Negative: Rash, Suspicious Lesions, Ulceration Extremities: Present: upper extr. pulses, edema - Labs and Meds Coagulation 03/18/22 Range/Units 05:09 PT 16.5 H (12.2-14.9) Sec. INR 1.19 H (0.87-1.13) APTT 30.1 (24.2-36.6) Sec. CBC 03/18/22 Range/Units 05:09 WBC 9.6 (4.5-11.0) K/mm3 RBC 4.93 (3.65-5.03) M/mm3 Hgb 14.6 H (10.1-14.3) gm/dl Hct 46.0 H (30.3-42.9) % Plt Count 203 (140-440) K/mm3 Lymph # (Auto) 2.2 (1.2-5.4) K/mm3 [place] # (Auto) 0.8 (0.0-0.8) K/mm3 Eos # (Auto) 0.1 (0.0-0.4) K/mm3 Baso # (Auto) 0.1 (0.0-0.1) K/mm3 Comprehensive Metabolic Panel 03/18/22 Range/Units 05:09 Sodium 140 (137-145) mmol/L Potassium 4.8 (3.6-5.0) mmol/L Chloride 100.5 (98-107) mmol/L Carbon Dioxide 27 (22-30) mmol/L BUN 32 H (7-17) mg/dL Creatinine 1.2 (0.6-1.2) mg/dL Glucose 123 H (65-100) mg/dL Calcium 9.3 (8.4-10.2) mg/dL - Imaging and Cardiology EKG: report reviewed, image reviewed Echo: report reviewed - Telemetry EKG Rhythm: Sinus Rhythm - EKG Sinus rhythms and dysrhythmias: sinus rhythm Ventricular dysrhythmias: ventricular premature com Repolarization changes or abnormalities: nonspecific abnormality, ST segment, and/or T wave
[2022-03-18 15:09] LABS: INR 1.22 (0.87-1.13)
[2022-03-18 15:10] LABS: Partial Thromboplastin Time 29.7 Sec. (24.2-36.6)
[2022-03-18] MEDS: HEPARIN/ 0.45% NACL DRIP 25,000 UNIT/500 ML BAG IV SCH (15:45)
[2022-03-18] MEDS ORDERED: WARFARIN 7.5 MG TAB PO NR (17:00)
--- NOTE | 2022-03-18 18:05 | Electrocardiograph Report ---
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
--- NOTE | 2022-03-18 18:14 | Electrocardiograph Report ---
[facility] Test Date: 2022-03-18 Test Time: 07:13:07 Pat Name: CJ GARCÍA Department: Room: A457 1 Gender: F Director [employer]: SIENNA : 1955 Requested By: ROS VILLARREAL Order Number: [id number] Reading MD: Jim Murphy Measurements Intervals [place] Rate: 93 P: 55 NH: 200 QRS: -21 QRSD: 105 T: 155 QT: 373 QTc: 451 Interpretive Statements Sinus rhythm Paired ventricular premature complexes Probable left atrial enlargement Nonspecific ST and T wave abnormality Inferior infarct, old Compared to ECG 03/17/2022 08:13:29 No significant change Electronically Signed On 03-18-2022 18:14:15 EDT by Jim Murphy
[2022-03-19 05:37] LABS: INR 1.16 (0.87-1.13)
[2022-03-19] MEDS: SPIRONOLACTONE 25 MG TAB PO SCH (10:59)
[2022-03-19] MEDS: METOPROLOL TARTRATE 25 MG TAB PO SCH ×2 (11:00→21:11)
--- NOTE | 2022-03-19 11:26 | Progress Note ---
Assessment and Plan Assessment and plan: 66 YO Female with OA, CHF, HTN, GERD, Seizure Disorder, DM, Obesity Hypoventilation Syndrome, Vascular Dementia with Tangential thinking, Cerebral Atherosclerosis presents to ED for evaluation. Patient reports "my legs hurt". Patient states that over the past 1 week she has experienced pain and swelling to her lower extremities. Patient knowledges decreased exercise tolerance, shortness of breath, dyspnea on exertion, dyspnea at rest, orthopnea, paroxysmal nocturnal dyspnea, as well as 10 pound weight gain over the past 1 week. Patient acknowledges noncompliance with diuretic therapy. Patient also acknowledges noncompliance with low-sodium diet. Additional history provided by the patient's son who was negative available via telephone for interview. Patient's son reports that the patient experienced increased weakness and confusion over the past several weeks. EMS was notified and upon arrival the patient was found to be in distress and subsequent transported to [facility] for further care and evaluation of the aforementioned symptoms. The patient was seen and evaluated in the emergency department. All lab and imaging studies reviewed. Patient found to have clinical syndrome consistent with CHF decompensation. Patient admitted to telemetry and initiated on CHF protocol. Cardiology team consulted in ED. Patient denies fever, chills, chest pain, palpitation, productive cough, skin rash, recent contact, or known exposure to COVID-19. No prior admission for review. No medication listed at time of admission for reconciliation. Advanced care planning conducted in ED. Past History Past Medical History: arthritis, GERD, heart failure, hypertension, other (See HPI) Past Surgical History: No surgical history, Other (Reviewed) Social history: single. denies: smoking, alcohol abuse, prescription drug abuse Family history: diabetes, hypertension 03/18: Patient started on goal-directed medical therapy for congestive heart failure. I did provide 15 minutes of counseling on need to lose weight which she verbalized understanding. She still has some mild evidence of intermittent confusion but clear this morning with clear understanding of her overall medical condition and needs. However when cardiology did reevaluate the patient she was confused about some details. . Lasix held this morning in anticipation for the cardiac catheterization however the latter has been held. Discussed with son at bedside. PT OT placed due to reported mobility issues at home. On echocardiogram cardiology was noted a large apical thrombus. As a result cardiac catheterization has been postponed. Patient has been started on heparin drip and interventional cardiology is being asked to consider a RADHA. Further management plan will be determined on this. Patient remains at high risk at this time. Neurology is being consulted for the encephalopathy to ensure no acute process ongoing. CT of the head was negative. Diet restarted 03/19: Patient seen and examined this morning sitting up off oxygen no new complaints no shortness of breath. Patient was started on anticoagulation yesterday with heparin drip and also warfarin due to noted large apical thrombus. Will discuss with cardiology about discharge plans. In the meantime and neurological work-up is still ongoing due to noted intermittent confusion to make sure there is no evidence of CVA initial CT of the head was negative. There are no neurological sequela this focal weakness noted at this time. Family was updated yesterday about the clinical findings records from outpatient acoustical installer is still pending. (1) CHF exacerbation Current Visit: Yes Status: Acute Qualifiers: Heart failure type: systolic Qualified Code(s): I50.23 - Acute on chronic systolic (congestive) heart failure Plan to address problem: CHF protocol: Strict I's/O, monitor urine output every shift, daily weight, afterload reduction, blood pressure control, diuresis, monitor fluid balance, echocardiogram ordered and pending at time of admission, cardiology team consulted, thyroid panel, magnesium level. (2) large apical thrombus-left ventricle (3) Hypertension Current Visit: Yes Status: Acute Qualifiers: Hypertension type: primary hypertension Qualified Code(s): I10 - Essential (primary) hypertension Plan to address problem: Monitor blood pressure every shift, continue medical management. (4) Diabetes Current Visit: Yes Status: Acute Plan to address problem: Consistent carbohydrate diet, Accu-Chek, insulin protocol, hypoglycemia protocol. (5) Vascular dementia with possible exacerbated metabolic encephalopathy Current Visit: Yes Status: Acute Qualifiers: Dementia behavioral disturbance: with behavioral disturbance Qualified Code(s): F01.51 - Vascular dementia with behavioral disturbance Plan to address problem: Verbal prompting, verbal redirection, benzodiazepine therapy as clinically indicated. (6) Cerebral atherosclerosis Current Visit: Yes Status: Acute Plan to address problem: Risk factor reduction therapy, CT scan brain without contrast. (7) ataxic gait (8) Morbid obesity BMI 47.6 (9) obesity hypoventilation syndrome Current Visit: Yes Status: Acute Plan to address problem: Balanced diet, increase physical activity discharge, outpatient pulmonary follow-up for sleep study (10) DVT prophylaxis Current Visit: Yes Status: Acute Plan to address problem: SCDs bilateral lower extremities while in bed (11) Advance care planning Current Visit: Yes Status: Acute Plan to address problem: Disease education conducted, care plan discussed, diagnoses discussed, prognosis discussed, patient is full code. Patient family acknowledges understanding and agreement with care plan, +30 minutes. (12) Preventative health care Current Visit: Yes Status: Acute Plan to address problem: Patient and family counseled regarding home safety, risk factor reduction, balanced diet, medication compliance. Outpatient follow-up with primary care physician for all age and risk factor appropriate screening test. +30 minutes. Critical care time 35 minutes History Interval history: Patient seen and examined this morning remains on oxygen reports improvement in symptoms, will correct confusion noted by me today. No reported overnight Hospitalist Physical - Physical exam Narrative exam: VITAL SIGNS: Reviewed. GENERAL: The patient appears normally developed, morbidly obese, mild respiratory distress. Vital signs as documented. HEAD: No signs of head trauma. EYES: Pupils are equal. Extraocular motions intact. EARS: Hearing grossly intact. MOUTH: Oropharynx is normal. NECK: No adenopathy, no JVD. CHEST: Chest with crackles breath sounds bilaterally. No wheezes. CARDIAC: Regular rate and rhythm. S1 and S2, without murmurs, gallops, or rubs. VASCULAR: +1 pitting edema. Peripheral pulses normal and equal in all extremities. ABDOMEN: Soft, non tender and non distended. Large abdominal girth no rebound or guarding, and no masses palpated. Bowel Sounds normal. MUSCULOSKELETAL: Good range of motion of all major joints. Extremities without clubbing, cyanosis. +1 pitting edema bilateral lower extremities. NEUROLOGIC EXAM: Alert and oriented x 3 although no focal sensory or strength deficits. Speech a bit sluggish. Follows commands. PSYCHIATRIC: Mood normal. SKIN: detail exam as documented in skin assessment - Constitutional Vitals: Temp Pulse Resp BP Pulse Ox 97.4 F L 53 L 16 94/65 92 03/19/22 03:21 03/19/22 03:21 03/19/22 03:21 03/19/22 03:21 03/19/22 03:21 General appearance: Present: no acute distress, other (Patient appears confused alert to self) HEART Score - HEART Score EKG: Non-specific Age: > 65 Risk factors: > 3 risk factors or hx of atherosclerotic disease Troponin: Troponin T 0.014 ng/mL (0.00-0.029) 03/17/22 06:26 Troponin: < normal limit Results - Labs CBC & Chem 7: 03/18/22 13:48 03/18/22 05:09 Labs: Laboratory Last Values WBC 9.6 K/mm3 (4.5-11.0) 03/18/22 05:09 RBC 4.93 M/mm3 (3.65-5.03) 03/18/22 05:09 Hgb 14.3 gm/dl (10.1-14.3) 03/18/22 13:48 Hct 44.8 % (30.3-42.9) H 03/18/22 13:48 MCV 93 fl (79-97) 03/18/22 05:09 MCH 30 pg (28-32) 03/18/22 05:09 MCHC 32 % (30-34) 03/18/22 05:09 RDW 16.2 % (13.2-15.2) H 03/18/22 05:09 Plt Count 193 K/mm3 (140-440) 03/18/22 13:48 Lymph % (Auto) 22.5 % (13.4-35.0) 03/18/22 05:09 [place] % (Auto) 8.8 % (0.0-7.3) H 03/18/22 05:09 Eos % (Auto) 1.4 % (0.0-4.3) 03/18/22 05:09 Baso % (Auto) 0.6 % (0.0-1.8) 03/18/22 05:09 Lymph # (Auto) 2.2 K/mm3 (1.2-5.4) 03/18/22 05:09 [place] # (Auto) 0.8 K/mm3 (0.0-0.8) 03/18/22 05:09 Eos # (Auto) 0.1 K/mm3 (0.0-0.4) 03/18/22 05:09 Baso # (Auto) 0.1 K/mm3 (0.0-0.1) 03/18/22 05:09 Seg Neutrophils % 66.7 % (40.0-70.0) 03/18/22 05:09 Seg Neutrophils # 6.4 K/mm3 (1.8-7.7) 03/18/22 05:09 PT 16.1 Sec. (12.2-14.9) H 03/19/22 05:01 INR 1.16 (0.87-1.13) H 03/19/22 05:01 APTT 29.7 Sec. (24.2-36.6) 03/18/22 13:48 Heparin Anti-Xa Level 0.35 U.I./ml (0.3-0.7) 03/18/22 23:26 Sodium 140 mmol/L (137-145) 03/18/22 05:09 Potassium 4.8 mmol/L (3.6-5.0) 03/18/22 05:09 Chloride 100.5 mmol/L (98-107) 03/18/22 05:09 Carbon Dioxide 27 mmol/L (22-30) 03/18/22 05:09 Anion Gap 17 mmol/L 03/18/22 05:09 BUN 32 mg/dL (7-17) H 03/18/22 05:09 Creatinine 1.2 mg/dL (0.6-1.2) 03/18/22 05:09 Estimated GFR 54 ml/min 03/18/22 05:09 BUN/Creatinine Ratio 27 % 03/18/22 05:09 Glucose 123 mg/dL (65-100) H 03/18/22 05:09 POC Glucose 117 mg/dL (70-105) H 03/19/22 07:30 Calcium 9.3 mg/dL (8.4-10.2) 03/18/22 05:09 Magnesium 1.80 mg/dL (1.7-2.3) 03/17/22 13:09 Total Creatine Kinase 187 units/L (30-135) H 03/17/22 06:26 CK-MB (CK-2) 1.8 ng/mL (0.0-4.0) 03/17/22 06:26 CK-MB (CK-2) Rel Index 0.9 (0-4) 03/17/22 06:26 Troponin T 0.014 ng/mL (0.00-0.029) 03/17/22 06:26 NT-Pro-B Natriuret Pep 4020 pg/mL (0-900) H 03/17/22 06:26 TSH 2.000 mlU/mL (0.270-4.200) 03/17/22 06:26 Free T4 1.40 ng/dL (0.76-1.46) 03/17/22 06:26 Lloyd/IV: Voiding Method Toilet Active Medications - Current Medications Current Medications: Generic Name Dose Route Start Last Admin Trade Name Freq PRN Reason Stop Dose Admin Acetaminophen 650 mg 03/17/22 12:00 Acetaminophen 325 Mg Tab PO Q4H PRN Pain MILD(1-3)/Fever >100.5/LIM Albuterol 2.5 mg 03/17/22 12:00 Albuterol 2.5 Mg/3 Ml Nebu IH Q4HRT PRN Shortness Of Breath Atorvastatin Calcium 20 mg 03/18/22 22:00 03/18/22 21:15 Atorvastatin 20 Mg Tab PO 20 mg QHS MELVIN Administration Heparin Sodium (Porcine) 4,600 unit 03/18/22 12:00 Heparin 10,000 Units/10 Ml Vial IV Q6H PRN Anti-Xa Assay < 0.1 units/ml Hydromorphone HCl 0.5 mg 03/17/22 12:00 Hydromorphone 0.5 Mg/0.5 Ml Inj IV Q23H PRN Pain , Severe (7-10) Heparin Sodium/Sodium Chloride 25,000 unit in 500 mls @ 30 mls/hr 03/18/22 12:00 03/19/22 02:09 Heparin/ 0.45% Nacl-25,000 Unit/500 Ml IV 1,500 units/hr TITR MELVIN 30 mls/hr Titration Protocol 1,500 UNITS/HR Metoprolol Tartrate 12.5 mg 03/17/22 15:00 03/19/22 11:00 Metoprolol Tartrate 25 Mg Tab PO Not Given BID [facility] Morphine Sulfate 2 mg 03/17/22 10:17 Morphine 2 Mg/1 Ml Inj IV Q4H PRN Pain, Moderate (4-6) Ondansetron HCl 4 mg 03/17/22 12:00 Ondansetron 4 Mg/2 Ml Inj IV Q8H PRN Nausea And Vomiting Oxycodone/Acetaminophen 1 tab 03/17/22 12:00 03/17/22 21:14 Oxycodone /Acetaminophen 5-325mg Tab PO 1 tab Q16H PRN Administration Pain, Moderate (4-6) Sodium Chloride 10 ml 03/17/22 22:00 03/18/22 21:15 Sodium Chloride 0.9% 10 Ml Flush Syringe IV 10 ml BID MELVIN Administration Sodium Chloride 10 ml 03/17/22 10:57 Sodium Chloride 0.9% 10 Ml Flush Syringe IV 03/22/22 10:56 PRN PRN LINE FLUSH Spironolactone 25 mg 03/19/22 10:00 03/19/22 10:59 Spironolactone 25 Mg Tab PO Not Given QDAY [facility] Warfarin Sodium 7.5 mg 03/19/22 17:00 Warfarin 7.5 Mg Tab PO 03/20/22 16:59 DAILY@1700 [facility]
[2022-03-19] MEDS: HEPARIN/ 0.45% NACL DRIP 25,000 UNIT/500 ML BAG IV SCH (12:42)
--- NOTE | 2022-03-19 15:37 | Progress Note ---
Assessment and Plan Patient is 66-year-old female with a reported past medical history of hypertension, CHF, diabetes, obesity, vascular dementia who came to the ED with a complaint of leg pain, bilateral lower extremity edema, and shortness of breath x1 week and confusion over several weaks AMS-neurology following HFrEf Hypertension Diabetes Obesity LV Thrombus Dementia? Echo 03/17/2022-EF 15 to 20%. LV is moderately dilated. Severe global hypokinesis of LV. Right ventricular systolic function is mildly reduced. Ri ght ventricle is dilated. Mild to moderate tricuspid regurgitation. Large mobile mass in inferobasal area thrombus noted in LV Plan: Patient remains with AMS Continue low-dose metoprolol 12.5 mg p.o. twice daily. Will titrate as needed Will hold KATHARINA or ARB due to soft BP Echo results show thrombus in LV will initiate anticoagulation with heparin drip with bridge therapy to Coumadin pharmacy to dose. Goal INR 3 Patient reportedly follows with [facility] in [place]. Requested records from patient's cardiology office pending Due to patient's cardiomyopathy and having frequent PVCs on monitor order for Assure wearable cardiac defibrillator placed Patient seen in conjunction with Dr. Gallardo who agrees with this plan of care - Patient Problems (1) CHF exacerbation Current Visit: Yes Status: Acute Qualifiers: Heart failure type: systolic Qualified Code(s): I50.23 - Acute on chronic systolic (congestive) heart failure (2) Obesity hypoventilation syndrome Current Visit: Yes Status: Acute (3) Hypertension Current Visit: Yes Status: Acute Qualifiers: Hypertension type: primary hypertension Qualified Code(s): I10 - Essential (primary) hypertension (4) Diabetes Current Visit: Yes Status: Acute (5) Vascular dementia Current Visit: Yes Status: Acute Qualifiers: Dementia behavioral disturbance: with behavioral disturbance Qualified Code(s): F01.51 - Vascular dementia with behavioral disturbance Subjective Date of service: 03/19/22 Principal diagnosis: HfrEF, LV thrombus Interval history: Patient resting in bed in no acute distress. Patient remains altered mental status Sinus 80s on monitor with frequent PVCs Objective Vital Signs Temp Pulse Resp BP Pulse Ox 03/19/22 11:00 18 94 03/19/22 03:21 97.4 F L 53 L 16 94/65 92 03/18/22 23:01 97.5 F L 85 16 91/70 97 03/18/22 23:00 18 97 03/18/22 22:00 92 H 03/18/22 21:15 93 H 99/65 03/18/22 20:39 97.4 F L 93 H 16 99/65 96 03/18/22 15:55 98.0 F 87 18 102/69 95 - Physical Examination General: No Apparent Distress HEENT: Positive: Mucus Membranes Moist Neck: Positive: trachea midline Cardiac: Positive: Reg Rate and Rhythm Lungs: Positive: Normal Breath Sounds Neuro: Positive: Grossly Intact Abdomen: Positive: Soft Skin: Negative: Rash, Suspicious Lesions, Ulceration Extremities: Present: upper extr. pulses, edema - Labs and Meds Coagulation 03/19/22 Range/Units 05:01 PT 16.1 H (12.2-14.9) Sec. INR 1.16 H (0.87-1.13) - Imaging and Cardiology EKG: report reviewed, image reviewed Echo: report reviewed - Telemetry EKG Rhythm: Sinus Rhythm - EKG Sinus rhythms and dysrhythmias: sinus rhythm Ventricular dysrhythmias: ventricular premature com Repolarization changes or abnormalities: nonspecific abnormality, ST segment, and/or T wave
[2022-03-19] MEDS ORDERED: WARFARIN 7.5 MG TAB PO SCH (17:00)
[2022-03-20 04:42] LABS: Hematocrit 45.2 % (30.3-42.9); Hemoglobin 13.9 gm/dl (10.1-14.3)
[2022-03-20 04:50] LABS: INR 1.49 (0.87-1.13)
[2022-03-20] MEDS: HEPARIN/ 0.45% NACL DRIP 25,000 UNIT/500 ML BAG IV SCH (06:03)
[2022-03-20] MEDS: SPIRONOLACTONE 25 MG TAB PO SCH (10:22)
[2022-03-20] MEDS: METOPROLOL TARTRATE 25 MG TAB PO SCH ×2 (10:22→22:21)
--- NOTE | 2022-03-20 12:08 | Progress Note ---
Assessment and Plan Patient is 66-year-old female with a reported past medical history of hypertension, CHF, diabetes, obesity, vascular dementia who came to the ED with a complaint of leg pain, bilateral lower extremity edema, and shortness of breath x1 week and confusion over several weaks AMS-neurology following HFrEf Hypertension Diabetes Obesity LV Thrombus Dementia? Echo 03/17/2022-EF 15 to 20%. LV is moderately dilated. Severe global hypokinesis of LV. Right ventricular systolic function is mildly reduced. Ri ght ventricle is dilated. Mild to moderate tricuspid regurgitation. Large mobile mass in inferobasal area thrombus noted in LV Plan: Patient remains with AMS Continue metoprolol 12.5 mg p.o. twice daily. Will titrate as needed Hold KATHARINA or ARB due to low/soft BP Echo results show thrombus in LV will initiate anticoagulation with heparin drip with bridge therapy to Coumadin pharmacy to dose. Goal INR 2.5-3.5 Patient reportedly follows with [facility] in [place]. Requested records from patient's cardiology office pending Due to patient's cardiomyopathy and having frequent PVCs on monitor order for Assure wearable cardiac defibrillator pending Discussed plan of care with patient's son who verbalized understanding and acknowledgment. Explained to patient's son that Assure device rep recommends family member be present when devices fitted to patient. Son verbalized understanding and knowledge Patient seen in conjunction with Dr. Gallardo who agrees with this plan of care - Patient Problems (1) CHF exacerbation Current Visit: Yes Status: Acute Qualifiers: Heart failure type: systolic Qualified Code(s): I50.23 - Acute on chronic systolic (congestive) heart failure (2) Obesity hypoventilation syndrome Current Visit: Yes Status: Acute (3) Hypertension Current Visit: Yes Status: Acute Qualifiers: Hypertension type: primary hypertension Qualified Code(s): I10 - Essential (primary) hypertension (4) Diabetes Current Visit: Yes Status: Acute (5) Vascular dementia Current Visit: Yes Status: Acute Qualifiers: Dementia behavioral disturbance: with behavioral disturbance Qualified Code(s): F01.51 - Vascular dementia with behavioral disturbance Subjective Date of service: 03/20/22 Principal diagnosis: HFrEF, LV thrombus Interval history: Patient resting in bed in no acute distress. Patient remains altered mental status Sinus 80s-90s on monitor with frequent PVCs Objective Vital Signs Temp Pulse Resp BP BP Pulse Ox 03/20/22 08:21 97.6 F 94 H 18 134/78 98 03/20/22 04:02 97.6 F 83 18 87/63 96 03/20/22 04:01 87 03/19/22 23:15 98.0 F 87 18 104/64 98 03/19/22 23:00 18 96 03/19/22 21:11 70 123/83 03/19/22 20:39 89 03/19/22 19:24 97.9 F 70 16 123/83 96 03/19/22 16:45 98.0 F 84 18 97/71 98 - Physical Examination General: No Apparent Distress HEENT: Positive: Mucus Membranes Moist Neck: Positive: trachea midline Cardiac: Positive: Reg Rate and Rhythm Lungs: Positive: Normal Breath Sounds Neuro: Positive: Grossly Intact Abdomen: Positive: Soft Skin: Negative: Rash, Suspicious Lesions, Ulceration Extremities: Present: upper extr. pulses, edema - Labs and Meds Coagulation 03/20/22 Range/Units 04:16 PT 19.8 H (12.2-14.9) Sec. INR 1.49 H (0.87-1.13) CBC 03/20/22 Range/Units 04:16 Hgb 13.9 (10.1-14.3) gm/dl Hct 45.2 H (30.3-42.9) % Plt Count 221 (140-440) K/mm3 - Imaging and Cardiology EKG: report reviewed, image reviewed Echo: report reviewed - Telemetry EKG Rhythm: Sinus Rhythm - EKG Sinus rhythms and dysrhythmias: sinus rhythm Ventricular dysrhythmias: ventricular premature com Repolarization changes or abnormalities: nonspecific abnormality, ST segment, and/or T wave
--- NOTE | 2022-03-20 14:51 | Progress Note ---
Assessment and Plan Assessment and plan: 66 YO Female with OA, CHF, HTN, GERD, Seizure Disorder, DM, Obesity Hypoventilation Syndrome, Vascular Dementia with Tangential thinking, Cerebral Atherosclerosis presents to ED for evaluation. Patient reports "my legs hurt". Patient states that over the past 1 week she has experienced pain and swelling to her lower extremities. Patient knowledges decreased exercise tolerance, shortness of breath, dyspnea on exertion, dyspnea at rest, orthopnea, paroxysmal nocturnal dyspnea, as well as 10 pound weight gain over the past 1 week. Patient acknowledges noncompliance with diuretic therapy. Patient also acknowledges noncompliance with low-sodium diet. Additional history provided by the patient's son who was negative available via telephone for interview. Patient's son reports that the patient experienced increased weakness and confusion over the past several weeks. EMS was notified and upon arrival the patient was found to be in distress and subsequent transported to [facility] for further care and evaluation of the aforementioned symptoms. The patient was seen and evaluated in the emergency department. All lab and imaging studies reviewed. Patient found to have clinical syndrome consistent with CHF decompensation. Patient admitted to telemetry and initiated on CHF protocol. Cardiology team consulted in ED. Patient denies fever, chills, chest pain, palpitation, productive cough, skin rash, recent contact, or known exposure to COVID-19. No prior admission for review. No medication listed at time of admission for reconciliation. Advanced care planning conducted in ED. Past History Past Medical History: arthritis, GERD, heart failure, hypertension, other (See HPI) Past Surgical History: No surgical history, Other (Reviewed) Social history: single. denies: smoking, alcohol abuse, prescription drug abuse Family history: diabetes, hypertension 03/18: Patient started on goal-directed medical therapy for congestive heart failure. I did provide 15 minutes of counseling on need to lose weight which she verbalized understanding. She still has some mild evidence of intermittent confusion but clear this morning with clear understanding of her overall medical condition and needs. However when cardiology did reevaluate the patient she was confused about some details. . Lasix held this morning in anticipation for the cardiac catheterization however the latter has been held. Discussed with son at bedside. PT OT placed due to reported mobility issues at home. On echocardiogram cardiology was noted a large apical thrombus. As a result cardiac catheterization has been postponed. Patient has been started on heparin drip and interventional cardiology is being asked to consider a RADHA. Further management plan will be determined on this. Patient remains at high risk at this time. Neurology is being consulted for the encephalopathy to ensure no acute process ongoing. CT of the head was negative. Diet restarted 03/19: Patient seen and examined this morning sitting up off oxygen no new complaints no shortness of breath. Patient was started on anticoagulation yesterday with heparin drip and also warfarin due to noted large apical thrombus. Will discuss with cardiology about discharge plans. In the meantime and neurological work-up is still ongoing due to noted intermittent confusion to make sure there is no evidence of CVA initial CT of the head was negative. There are no neurological sequela this focal weakness noted at this time. Family was updated yesterday about the clinical findings records from outpatient natural resource technician is still pending. 03/20: Patient seen and examined, no new compalints, INR 1.49, Echo results show thrombus in LV will initiate anticoagulation with heparin drip with bridge therapy to Coumadin pharmacy to dose. Goal INR 2.5-3.5. Continue heparin drip, fall precautions. (1) CHF exacerbation Current Visit: Yes Status: Acute Qualifiers: Heart failure type: systolic Qualified Code(s): I50.23 - Acute on chronic systolic (congestive) heart failure Plan to address problem: CHF protocol: Strict I's/O, monitor urine output every shift, daily weight, afterload reduction, blood pressure control, diuresis, monitor fluid balance, echocardiogram ordered and pending at time of admission, cardiology team consulted, thyroid panel, magnesium level. (2) large apical thrombus-left ventricle (3) Hypertension Current Visit: Yes Status: Acute Qualifiers: Hypertension type: primary hypertension Qualified Code(s): I10 - Essential (primary) hypertension Plan to address problem: Monitor blood pressure every shift, continue medical management. (4) Diabetes Current Visit: Yes Status: Acute Plan to address problem: Consistent carbohydrate diet, Accu-Chek, insulin protocol, hypoglycemia protocol. (5) Vascular dementia with possible exacerbated metabolic encephalopathy Current Visit: Yes Status: Acute Qualifiers: Dementia behavioral disturbance: with behavioral disturbance Qualified Code(s): F01.51 - Vascular dementia with behavioral disturbance Plan to address problem: Verbal prompting, verbal redirection, benzodiazepine therapy as clinically indicated. (6) Cerebral atherosclerosis Current Visit: Yes Status: Acute Plan to address problem: Risk factor reduction therapy, CT scan brain without contrast. (7) ataxic gait (8) Morbid obesity BMI 47.6 (9) obesity hypoventilation syndrome Current Visit: Yes Status: Acute Plan to address problem: Balanced diet, increase physical activity discharge, outpatient pulmonary follow-up for sleep study (10) DVT prophylaxis Current Visit: Yes Status: Acute Plan to address problem: SCDs bilateral lower extremities while in bed (11) Advance care planning Current Visit: Yes Status: Acute Plan to address problem: Disease education conducted, care plan discussed, diagnoses discussed, prognosis discussed, patient is full code. Patient family acknowledges understanding and agreement with care plan, +30 minutes. (12) Preventative health care Current Visit: Yes Status: Acute Plan to address problem: Patient and family counseled regarding home safety, risk factor reduction, balanced diet, medication compliance. Outpatient follow-up with primary care physician for all age and risk factor appropriate screening test. +30 minutes. History Interval history: Patient seen and examined this morning, no new complaints, No reported overnight Hospitalist Physical - Physical exam Narrative exam: VITAL SIGNS: Reviewed. GENERAL: The patient appears normally developed, morbidly obese, no noted respiratory distress. Vital signs as documented. HEAD: No signs of head trauma. EYES: Pupils are equal. Extraocular motions intact. EARS: Hearing grossly intact. MOUTH: Oropharynx is normal. NECK: No adenopathy, no JVD. CHEST: Chest with diminished breath sounds bilaterally. No wheezes. CARDIAC: Regular rate and rhythm. S1 and S2, without murmurs, gallops, or rubs. VASCULAR: +1 pitting edema. Peripheral pulses normal and equal in all ext remities. ABDOMEN: Soft, non tender and non distended. Large abdominal girth no rebound or guarding, and no masses palpated. Bowel Sounds normal. MUSCULOSKELETAL: Good range of motion of all major joints. Extremities without clubbing, cyanosis. +1 pitting edema bilateral lower extremities. NEUROLOGIC EXAM: Alert and oriented x 3 although no focal sensory or strength deficits. Speech normal. Follows commands. PSYCHIATRIC: Mood normal. SKIN: detail exam as documented in skin assessment - Constitutional Vitals: Temp Pulse Resp BP Pulse Ox 97.6 F 94 H 18 134/78 97 03/20/22 08:21 03/20/22 08:21 03/20/22 08:21 03/20/22 08:21 03/20/22 11:00 General appearance: Present: no acute distress, other (Patient appears confused alert to self) HEART Score - HEART Score EKG: Non-specific Age: > 65 Risk factors: > 3 risk factors or hx of atherosclerotic disease Troponin: Troponin T 0.014 ng/mL (0.00-0.029) 03/17/22 06:26 Troponin: < normal limit Results - Labs CBC & Chem 7: 03/20/22 04:16 03/18/22 05:09 Labs: Laboratory Last Values WBC 9.6 K/mm3 (4.5-11.0) 03/18/22 05:09 RBC 4.93 M/mm3 (3.65-5.03) 03/18/22 05:09 Hgb 13.9 gm/dl (10.1-14.3) 03/20/22 04:16 Hct 45.2 % (30.3-42.9) H 03/20/22 04:16 MCV 93 fl (79-97) 03/18/22 05:09 MCH 30 pg (28-32) 03/18/22 05:09 MCHC 32 % (30-34) 03/18/22 05:09 RDW 16.2 % (13.2-15.2) H 03/18/22 05:09 Plt Count 221 K/mm3 (140-440) 03/20/22 04:16 Lymph % (Auto) 22.5 % (13.4-35.0) 03/18/22 05:09 [place] % (Auto) 8.8 % (0.0-7.3) H 03/18/22 05:09 Eos % (Auto) 1.4 % (0.0-4.3) 03/18/22 05:09 Baso % (Auto) 0.6 % (0.0-1.8) 03/18/22 05:09 Lymph # (Auto) 2.2 K/mm3 (1.2-5.4) 03/18/22 05:09 [place] # (Auto) 0.8 K/mm3 (0.0-0.8) 03/18/22 05:09 Eos # (Auto) 0.1 K/mm3 (0.0-0.4) 03/18/22 05:09 Baso # (Auto) 0.1 K/mm3 (0.0-0.1) 03/18/22 05:09 Seg Neutrophils % 66.7 % (40.0-70.0) 03/18/22 05:09 Seg Neutrophils # 6.4 K/mm3 (1.8-7.7) 03/18/22 05:09 PT 19.8 Sec. (12.2-14.9) H 03/20/22 04:16 INR 1.49 (0.87-1.13) H 03/20/22 04:16 APTT 29.7 Sec. (24.2-36.6) 03/18/22 13:48 Heparin Anti-Xa Level 0.36 U.I./ml (0.3-0.7) 03/19/22 23:19 Sodium 140 mmol/L (137-145) 03/18/22 05:09 Potassium 4.8 mmol/L (3.6-5.0) 03/18/22 05:09 Chloride 100.5 mmol/L (98-107) 03/18/22 05:09 Carbon Dioxide 27 mmol/L (22-30) 03/18/22 05:09 Anion Gap 17 mmol/L 03/18/22 05:09 BUN 32 mg/dL (7-17) H 03/18/22 05:09 Creatinine 1.2 mg/dL (0.6-1.2) 03/18/22 05:09 Estimated GFR 54 ml/min 03/18/22 05:09 BUN/Creatinine Ratio 27 % 03/18/22 05:09 Glucose 123 mg/dL (65-100) H 03/18/22 05:09 POC Glucose 122 mg/dL (70-105) H 03/20/22 07:54 Calcium 9.3 mg/dL (8.4-10.2) 03/18/22 05:09 Magnesium 1.80 mg/dL (1.7-2.3) 03/17/22 13:09 Total Creatine Kinase 187 units/L (30-135) H 03/17/22 06:26 CK-MB (CK-2) 1.8 ng/mL (0.0-4.0) 03/17/22 06:26 CK-MB (CK-2) Rel Index 0.9 (0-4) 03/17/22 06:26 Troponin T 0.014 ng/mL (0.00-0.029) 03/17/22 06:26 NT-Pro-B Natriuret Pep 4020 pg/mL (0-900) H 03/17/22 06:26 TSH 2.000 mlU/mL (0.270-4.200) 03/17/22 06:26 Free T4 1.40 ng/dL (0.76-1.46) 03/17/22 06:26 Lloyd/IV: Voiding Method Bedside Commode Active Medications - Current Medications Current Medications: Generic Name Dose Route Start Last Admin Trade Name Freq PRN Reason Stop Dose Admin Acetaminophen 650 mg 03/17/22 12:00 Acetaminophen 325 Mg Tab PO Q4H PRN Pain MILD(1-3)/Fever >100.5/LIM Albuterol 2.5 mg 03/17/22 12:00 Albuterol 2.5 Mg/3 Ml Nebu IH Q4HRT PRN Shortness Of Breath Atorvastatin Calcium 20 mg 03/18/22 22:00 03/19/22 21:11 Atorvastatin 20 Mg Tab PO 20 mg QHS MELVIN Administration Heparin Sodium (Porcine) 4,600 unit 03/18/22 12:00 Heparin 10,000 Units/10 Ml Vial IV Q6H PRN Anti-Xa Assay < 0.1 units/ml Hydromorphone HCl 0.5 mg 03/17/22 12:00 Hydromorphone 0.5 Mg/0.5 Ml Inj IV Q23H PRN Pain , Severe (7-10) Heparin Sodium/Sodium Chloride 25,000 unit in 500 mls @ 30 mls/hr 03/18/22 12:00 03/20/22 06:03 Heparin/ 0.45% Nacl-25,000 Unit/500 Ml IV 1,500 units/hr TITR MELVIN 30 mls/hr Administration Protocol 1,500 UNITS/HR Metoprolol Tartrate 12.5 mg 03/17/22 15:00 03/20/22 10:22 Metoprolol Tartrate 25 Mg Tab PO 12.5 mg BID MELVIN Administration Morphine Sulfate 2 mg 03/17/22 10:17 Morphine 2 Mg/1 Ml Inj IV Q4H PRN Pain, Moderate (4-6) Ondansetron HCl 4 mg 03/17/22 12:00 Ondansetron 4 Mg/2 Ml Inj IV Q8H PRN Nausea And Vomiting Oxycodone/Acetaminophen 1 tab 03/17/22 12:00 03/17/22 21:14 Oxycodone /Acetaminophen 5-325mg Tab PO 1 tab Q16H PRN Administration Pain, Moderate (4-6) Sodium Chloride 10 ml 03/17/22 22:00 03/20/22 07:40 Sodium Chloride 0.9% 10 Ml Flush Syringe IV Not Given BID MELVIN Sodium Chloride 10 ml 03/17/22 10:57 Sodium Chloride 0.9% 10 Ml Flush Syringe IV 03/22/22 10:56 PRN PRN LINE FLUSH Spironolactone 25 mg 03/19/22 10:00 03/20/22 10:22 Spironolactone 25 Mg Tab PO 25 mg QDAY MELVIN Administration Warfarin Sodium 7.5 mg 03/20/22 17:00 Warfarin 7.5 Mg Tab PO 03/21/22 16:59 DAILY@1700 NR
[2022-03-20] MEDS ORDERED: WARFARIN 7.5 MG TAB PO NR (17:00)
[2022-03-21] MEDS: HEPARIN/ 0.45% NACL DRIP 25,000 UNIT/500 ML BAG IV SCH (01:29)
[2022-03-21 08:05] LABS: INR 2.22 (0.87-1.13)
[2022-03-21 08:33] VITALS: BP 109/80
[2022-03-21] MEDS: METOPROLOL TARTRATE 25 MG TAB PO SCH (09:22)
[2022-03-21] MEDS: SPIRONOLACTONE 25 MG TAB PO SCH (09:23)
--- NOTE | 2022-03-21 11:19 | Progress Note ---
Assessment and Plan Patient is 66-year-old female with a reported past medical history of hypertension, CHF, diabetes, obesity, vascular dementia who came to the ED with a complaint of leg pain, bilateral lower extremity edema, and shortness of breath x1 week and confusion over several weaks AMS-neurology following HFrEf Hypertension Diabetes Obesity LV Thrombus Dementia? Echo 03/17/2022-EF 15 to 20%. LV is moderately dilated. Severe global hypokinesis of LV. Right ventricular systolic function is mildly reduced. Right ventricle is dilated. Mild to moderate tricuspid regurgitation. Large mobile mass in inferobasal area thrombus noted in LV Plan: Patient remains with AMS Continue metoprolol 12.5 mg p.o. twice daily. Will titrate as needed Hold KATHARINA or ARB due to low/soft BP Echo results show thrombus in LV will initiate anticoagulation with heparin drip with bridge therapy to Coumadin pharmacy to dose. Goal INR 2.5-3.5 Patient reportedly follows with [facility] in [place]. Requested records from patient's cardiology office pending pt inr is 2.25 stop iv heparin and discharge home Due to patient's cardiomyopathy and having frequent PVCs on monitor order for Assure wearable cardiac defibrillator pending Discussed plan of care with patient's son who verbalized understanding and acknowledgment. Subjective Date of service: 03/21/22 Principal diagnosis: HFrEF, LV thrombus Interval history: sitting in chair and no sob Objective Vital Signs Temp Pulse Resp BP Pulse Ox 03/21/22 09:22 87 109/80 03/21/22 08:01 98.2 F 87 18 109/80 96 03/21/22 04:27 85 03/21/22 03:22 97.5 F L 81 20 96/57 96 03/21/22 00:27 78 03/20/22 23:31 97.4 F L 79 19 96/66 99 03/20/22 23:00 97 03/20/22 22:21 83 111/77 03/20/22 19:23 84 03/20/22 19:16 97.8 F 83 12 111/77 99 03/20/22 15:07 98.0 F 81 18 110/84 99 03/20/22 14:00 81 03/20/22 11:44 98.0 F 63 20 95/65 97 - Physical Examination General: No Apparent Distress HEENT: Positive: Mucus Membranes Moist Neck: Positive: trachea midline Cardiac: Positive: Reg Rate and Rhythm Lungs: Positive: clear to auscultation Neuro: Positive: Grossly Intact Abdomen: Positive: Soft Skin: Negative: Rash, Suspicious Lesions, Ulceration Extremities: Present: upper extr. pulses, edema (trace) - Labs and Meds Coagulation 03/21/22 Range/Units 07:01 PT 27.5 H (12.2-14.9) Sec. INR 2.22 H (0.87-1.13) - Imaging and Cardiology EKG: report reviewed, image reviewed Echo: report reviewed - Telemetry EKG Rhythm: Sinus Rhythm - EKG Sinus rhythms and dysrhythmias: sinus rhythm Ventricular dysrhythmias: ventricular premature com Repolarization changes or abnormalities: nonspecific abnormality, ST segment, and/or T wave
--- NOTE | 2022-03-21 11:24 | Progress Note ---
Hospitalist Physical - Constitutional Vitals: Temp Pulse Resp BP Pulse Ox 98.2 F 87 18 109/80 96 03/21/22 08:01 03/21/22 09:22 03/21/22 08:01 03/21/22 09:22 03/21/22 08:01 General appearance: Present: no acute distress, other (Patient appears confused alert to self) HEART Score - HEART Score EKG: Non-specific Age: > 65 Risk factors: > 3 risk factors or hx of atherosclerotic disease Troponin: Troponin T 0.014 ng/mL (0.00-0.029) 03/17/22 06:26 Troponin: < normal limit Results - Labs CBC & Chem 7: 03/20/22 04:16 03/18/22 05:09 Labs: Laboratory Last Values WBC 9.6 K/mm3 (4.5-11.0) 03/18/22 05:09 RBC 4.93 M/mm3 (3.65-5.03) 03/18/22 05:09 Hgb 13.9 gm/dl (10.1-14.3) 03/20/22 04:16 Hct 45.2 % (30.3-42.9) H 03/20/22 04:16 MCV 93 fl (79-97) 03/18/22 05:09 MCH 30 pg (28-32) 03/18/22 05:09 MCHC 32 % (30-34) 03/18/22 05:09 RDW 16.2 % (13.2-15.2) H 03/18/22 05:09 Plt Count 221 K/mm3 (140-440) 03/20/22 04:16 Lymph % (Auto) 22.5 % (13.4-35.0) 03/18/22 05:09 [place] % (Auto) 8.8 % (0.0-7.3) H 03/18/22 05:09 Eos % (Auto) 1.4 % (0.0-4.3) 03/18/22 05:09 Baso % (Auto) 0.6 % (0.0-1.8) 03/18/22 05:09 Lymph # (Auto) 2.2 K/mm3 (1.2-5.4) 03/18/22 05:09 [place] # (Auto) 0.8 K/mm3 (0.0-0.8) 03/18/22 05:09 Eos # (Auto) 0.1 K/mm3 (0.0-0.4) 03/18/22 05:09 Baso # (Auto) 0.1 K/mm3 (0.0-0.1) 03/18/22 05:09 Seg Neutrophils % 66.7 % (40.0-70.0) 03/18/22 05:09 Seg Neutrophils # 6.4 K/mm3 (1.8-7.7) 03/18/22 05:09 PT 27.5 Sec. (12.2-14.9) H 03/21/22 07:01 INR 2.22 (0.87-1.13) H 03/21/22 07:01 APTT 29.7 Sec. (24.2-36.6) 03/18/22 13:48 Heparin Anti-Xa Level 0.53 U.I./ml (0.3-0.7) 03/20/22 23:12 Sodium 140 mmol/L (137-145) 03/18/22 05:09 Potassium 4.8 mmol/L (3.6-5.0) 03/18/22 05:09 Chloride 100.5 mmol/L (98-107) 03/18/22 05:09 Carbon Dioxide 27 mmol/L (22-30) 03/18/22 05:09 Anion Gap 17 mmol/L 03/18/22 05:09 BUN 32 mg/dL (7-17) H 03/18/22 05:09 Creatinine 1.2 mg/dL (0.6-1.2) 03/18/22 05:09 Estimated GFR 54 ml/min 03/18/22 05:09 BUN/Creatinine Ratio 27 % 03/18/22 05:09 Glucose 123 mg/dL (65-100) H 03/18/22 05:09 POC Glucose 100 mg/dL (70-105) 03/21/22 05:32 Calcium 9.3 mg/dL (8.4-10.2) 03/18/22 05:09 Magnesium 1.80 mg/dL (1.7-2.3) 03/17/22 13:09 Total Creatine Kinase 187 units/L (30-135) H 03/17/22 06:26 CK-MB (CK-2) 1.8 ng/mL (0.0-4.0) 03/17/22 06:26 CK-MB (CK-2) Rel Index 0.9 (0-4) 03/17/22 06:26 Troponin T 0.014 ng/mL (0.00-0.029) 03/17/22 06:26 NT-Pro-B Natriuret Pep 4020 pg/mL (0-900) H 03/17/22 06:26 TSH 2.000 mlU/mL (0.270-4.200) 03/17/22 06:26 Free T4 1.40 ng/dL (0.76-1.46) 03/17/22 06:26 Lloyd/IV: Voiding Method External Female Catheter Active Medications - Current Medications Current Medications: Generic Name Dose Route Start Last Admin Trade Name Freq PRN Reason Stop Dose Admin Acetaminophen 650 mg 03/17/22 12:00 Acetaminophen 325 Mg Tab PO Q4H PRN Pain MILD(1-3)/Fever >100.5/LIM Albuterol 2.5 mg 03/17/22 12:00 Albuterol 2.5 Mg/3 Ml Nebu IH Q4HRT PRN Shortness Of Breath Atorvastatin Calcium 20 mg 03/18/22 22:00 03/20/22 22:21 Atorvastatin 20 Mg Tab PO 20 mg QHS MELVIN Administration Hydromorphone HCl 0.5 mg 03/17/22 12:00 Hydromorphone 0.5 Mg/0.5 Ml Inj IV Q23H PRN Pain , Severe (7-10) Metoprolol Tartrate 12.5 mg 03/17/22 15:00 03/21/22 09:22 Metoprolol Tartrate 25 Mg Tab PO 12.5 mg BID MELVIN Administration Morphine Sulfate 2 mg 03/17/22 10:17 Morphine 2 Mg/1 Ml Inj IV Q4H PRN Pain, Moderate (4-6) Ondansetron HCl 4 mg 03/17/22 12:00 03/21/22 01:38 Ondansetron 4 Mg/2 Ml Inj IV 4 mg Q8H PRN Administration Nausea And Vomiting Oxycodone/Acetaminophen 1 tab 03/17/22 12:00 03/17/22 21:14 Oxycodone /Acetaminophen 5-325mg Tab PO 1 tab Q16H PRN Administration Pain, Moderate (4-6) Sodium Chloride 10 ml 03/17/22 22:00 03/21/22 09:23 Sodium Chloride 0.9% 10 Ml Flush Syringe IV 10 ml BID MELVIN Administration Sodium Chloride 10 ml 03/17/22 10:57 Sodium Chloride 0.9% 10 Ml Flush Syringe IV 03/22/22 10:56 PRN PRN LINE FLUSH Spironolactone 25 mg 03/19/22 10:00 03/21/22 09:23 Spironolactone 25 Mg Tab PO 25 mg QDAY MELVIN Administration Warfarin Sodium 6 mg 03/21/22 17:00 Warfarin 2 Mg Tab PO 03/22/22 23:59 DAILY@1700 NR
--- NOTE | 2022-03-21 11:28 | Discharge Summary ---
Providers - Providers Date of Admission: 03/17/22 10:17 Attending physician: ANGELIKA CAMPBELL MD 03/17/22 11:04 Consult to Physician [CONS] Routine Comment: Consulting Provider: TARAS GOMEZ Physician Instructions: Reason For Exam: chf 03/18/22 11:18 Occupational Therapy Evaluate and Treat [CONS] Routine Comment: Reason For Exam: DEBILITY Physical Therapy Evaluation and Treat [CONS] Routine Comment: Reason For Exam: DEBILITY 03/18/22 11:42 Consult to Physician [CONS] Routine Comment: Consulting Provider: ALEXX HODGES Physician Instructions: Reason For Exam: Encephalopathy, cardiac thrombus Primary care physician: BIBLE READER Hospitalization Reason for admission: heart failure Condition: Stable Hospital course: 66 YO Female with OA, CHF, HTN, GERD, Seizure Disorder, DM, Obesity Hypoventilation Syndrome, Vascular Dementia with Tangential thinking, Cerebral Atherosclerosis presents to ED for evaluation. Patient reports "my legs hurt". Patient states that over the past 1 week she has experienced pain and swelling to her lower extremities. Patient knowledges decreased exercise tolerance, sh ortness of breath, dyspnea on exertion, dyspnea at rest, orthopnea, paroxysmal nocturnal dyspnea, as well as 10 pound weight gain over the past 1 week. Patient acknowledges noncompliance with diuretic therapy. Patient also acknowledges noncompliance with low-sodium diet. Additional history provided by the patient's son who was negative available via telephone for interview. Patient's son reports that the patient experienced increased weakness and confusion over the past several weeks. EMS was notified and upon arrival the patient was found to be in distress and subsequent transported to [facility] for further care and evaluation of the aforementioned symptoms. The patient was seen and evaluated in the emergency department. All lab and imaging studies reviewed. Patient found to have clinical syndrome consistent with CHF decompensation. Patient admitted to telemetry and initiated on CHF protocol. Cardiology team consulted in ED. Patient denies fever, chills, chest pain, palpitation, productive cough, skin rash, recent contact, or known exposure to COVID-19. No prior admission for review. No medication listed at time of admission for reconciliation. Advanced care planning conducted in ED. Past History Past Medical History: arthritis, GERD, heart failure, hypertension, other (See HPI) Past Surgical History: No surgical history, Other (Reviewed) Social history: single. denies: smoking, alcohol abuse, prescription drug abuse Family history: diabetes, hypertension 03/18: Patient started on goal-directed medical therapy for congestive heart failure. I did provide 15 minutes of counseling on need to lose weight which she verbalized understanding. She still has some mild evidence of intermittent confusion but clear this morning with clear understanding of her overall medical condition and needs. However when cardiology did reevaluate the patient she was confused about some details. . Lasix held this morning in anticipation for the cardiac catheterization however the latter has been held. Discussed with son at bedside. PT OT placed due to reported mobility issues at home. On echocardiogram cardiology was noted a large apical thrombus. As a result cardiac catheterization has been postponed. Patient has been started on heparin drip and interventional cardiology is being asked to consider a RADHA. Further management plan will be determined on this. Patient remains at high risk at this time. Neurology is being consulted for the encephalopathy to ensure no acute process ongoing. CT of the head was negative. Diet restarted 03/19: Patient seen and examined this morning sitting up off oxygen no new complaints no shortness of breath. Patient was started on anticoagulation yesterday with heparin drip and also warfarin due to noted large apical thrombus. Will discuss with cardiology about discharge plans. In the meantime and neurological work-up is still ongoing due to noted intermittent confusion to make sure there is no evidence of CVA initial CT of the head was negative. There are no neurological sequela this focal weakness noted at this time. Family was updated yesterday about the clinical findings records from outpatient small electric engine technician is still pending. 03/20: Patient seen and examined, no new complaints, INR 1.49, Echo results show thrombus in LV will initiate anticoagulation with heparin drip with bridge therapy to Coumadin pharmacy to dose. Goal INR 2.5-3.5. Continue heparin drip, fall precautions. 03/21: INR now therapeutic, Cardiac vest now available to the patient, she will continue on Coumadin, Education provided. Family updated on follow up. Echo results show thrombus in LV will initiate anticoagulation with heparin drip with bridge therapy to Coumadin pharmacy to dose. Goal INR 2.5-3.5 Patient reportedly follows with [facility] in [place]. Requested records from patient's cardiology office pending Due to patient's cardiomyopathy and having frequent PVCs on monitor order for Assure wearable cardiac defibrillator pending Discussed plan of care with patient's son who verbalized understanding and acknowledgment. Explained to patient's son that [employer] device rep recommends family member be present when devices fitted to patient. (1) CHF exacerbation Current Visit: Yes Status: Acute Qualifiers: Heart failure type: systolic Qualified Code(s): I50.23 - Acute on chronic systolic (congestive) heart failure Plan to address problem: CHF protocol: Strict I's/O, monitor urine output every shift, daily weight, aft erload reduction, blood pressure control, diuresis, monitor fluid balance, echocardiogram ordered and pending at time of admission, cardiology team consulted, thyroid panel, magnesium level. (2) large apical thrombus-left ventricle (3) Hypertension Current Visit: Yes Status: Acute Qualifiers: Hypertension type: primary hypertension Qualified Code(s): I10 - Essential (primary) hypertension Plan to address problem: Monitor blood pressure every shift, continue medical management. (4) Diabetes Current Visit: Yes Status: Acute Plan to address problem: Consistent carbohydrate diet, Accu-Chek, insulin protocol, hypoglycemia protocol. (5) Vascular dementia with possible exacerbated metabolic encephalopathy Current Visit: Yes Status: Acute Qualifiers: Dementia behavioral disturbance: with behavioral disturbance Qualified Code(s): F01.51 - Vascular dementia with behavioral disturbance Plan to address problem: Verbal prompting, verbal redirection, benzodiazepine therapy as clinically indicated. (6) Cerebral atherosclerosis Current Visit: Yes Status: Acute Plan to address problem: Risk factor reduction therapy, CT scan brain without contrast. (7) ataxic gait (8) Morbid obesity BMI 47.6 (9) obesity hypoventilation syndrome Current Visit: Yes Status: Acute Plan to address problem: Balanced diet, increase physical activity discharge, outpatient pulmonary follow-up for sleep study Disposition: 30 STILL A PATIENT Final Discharge Diagnosis (Prints w/discharge instructions): Left Ventricular Thrombus. HFrEf. Hypertension. Diabetes. Obesity. Dementia? Time spent for discharge: 35 mins Core Measure Documentation - Palliative Care Palliative Care/ Comfort Measures: Not Applicable - Core Measures Any of the following diagnoses?: heart failure - Heart Failure Discharge Requirements KATHARINA/ARB for LVSD if EF <40%: Yes Beta daniel at discharge: Yes Exam - Physical Exam Narrative exam: VITAL SIGNS: Reviewed. GENERAL: The patient appears normally developed, morbidly obese, no noted respiratory distress. Vital signs as documented. HEAD: No signs of head trauma. EYES: Pupils are equal. Extraocular motions intact. EARS: Hearing grossly intact. MOUTH: Oropharynx is normal. NECK: No adenopathy, no JVD. CHEST: Chest with diminished breath sounds bilaterally. No wheezes. CARDIAC: Regular rate and rhythm. S1 and S2, without murmurs, gallops, or rubs. VASCULAR: +1 pitting edema. Peripheral pulses normal and equal in all extremities. ABDOMEN: Soft, non tender and non distended. Large abdominal girth no rebound or guarding, and no masses palpated. Bowel Sounds normal. MUSCULOSKELETAL: Good range of motion of all major joints. Extremities without clubbing, cyanosis. +1 pitting edema bilateral lower extremities. NEUROLOGIC EXAM: Alert and oriented x 3 although no focal sensory or strength deficits. Speech normal. Follows commands. PSYCHIATRIC: Mood normal. SKIN: detail exam as documented in skin assessment - Constitutional Vitals: Temp Pulse Resp BP Pulse Ox 98.2 F 87 18 109/80 96 03/21/22 08:01 03/21/22 09:22 03/21/22 08:01 03/21/22 09:22 03/21/22 08:01 Plan Activity: advance as tolerated, fall precautions Diet: low salt Special Instructions: record daily weights, record daily BP diary Care Plan Goals: Follow with your small electric engine technician and continue to monitor your INR to adjust coumadin Follow up with: PRIMARY CAREMD [Primary Care Provider] - 3-5 Days DENISE NOLASCO MD [Staff Physician] - 7 Days ALEXX HODGES MD [Staff Physician] - 7 Days Forms: Warfarin Discharge Instruction Prescriptions: Warfarin [Coumadin] 6 mg PO DAILY@1700 #90 tablet Furosemide [Lasix TAB] 20 mg PO QDAY #30 tab Metoprolol [Lopressor TAB] 12.5 mg PO BID #60 tablet
[2022-03-21] MEDS ORDERED: WARFARIN 2 MG TAB PO NR (17:00)
== END 2022-03-21 12:50 | disposition home health service (06) | DRG 280 ==
LOC: ED 19:03 → OBSVTOIN 03-17 10:17 → 4A 03-17 10:17
PROVIDERS: ADMIT Internal Medicine; ATTEND Internal Medicine
DX: I11.0 Hypertensive heart disease with heart failure (principal); G93.41 Metabolic encephalopathy; I21.9 Acute myocardial infarction, unspecified; I50.23 Acute on chronic systolic (congestive) heart failure; E66.2 Morbid (severe) obesity with alveolar hypoventilation; Z68.42 Body mass index [BMI] 45.0-49.9, adult; F01.51 Vascular dementia, unspecified severity, with behavioral disturbance; K21.9 Gastro-esophageal reflux disease without esophagitis; M19.90 Unspecified osteoarthritis, unspecified site; E11.9 Type 2 diabetes mellitus without complications; G40.909 Epilepsy, unspecified, not intractable, without status epilepticus; I67.2 Cerebral atherosclerosis; Z83.3 Family history of diabetes mellitus; Z82.49 Family history of ischemic heart disease and other diseases of the circulatory system
CPT/HCPCS: 36415; 70450; 71045; 80048; 82550; 82553; 82962; 83735; 83880; 84439; 84443; 84484; 85014; 85018; 85025; 85049; 85520; 85610; 85730; 93005; 93306; 93970; 94640; G0378; J3490; C8929; J1644; J1650; J1940; J2405

== ENCOUNTER 2022-04-04 14:54 | Inpatient (IN) | payer MEDICARE, MEDICAID ==
[2022-04-04] MEDS ORDERED: MORPHINE 4 MG/1 ML INJ IV ONE ×2 (15:48→20:30)
--- NOTE | 2022-04-04 15:53 | Emergency Department Report ---
<RICKY URBINA - Last Filed: 04/04/22 20:40> ED General Adult HPI - General Chief complaint: Pain General Stated complaint: PAIN ALL OVER Time Seen by Provider: 04/04/22 15:28 Source: patient, EMS Mode of arrival: Stretcher Limitations: No Limitations - History of Present Illness Initial comments: 66-year-old morbidly obese female with a history of CHF bilateral leg edema who now presents with generalized muscle discomfort that started 3 days ago progressively getting worse. Patient reported being on water pill lasix. Patient denies any history of alcohol abuse. No cough, fever or palpitation reported. No report of sick contacts. No other modifying or associated factors reported. Severity scale (0 -10): 10 - Related Data Home Medications Medication Instructions Recorded Confirmed Last Taken AtorvaSTATin [Lipitor] 20 mg PO QHS 03/18/22 03/18/22 Unknown Colchicine 0.6 mg PO QDAY 03/18/22 03/18/22 Unknown Nitroglycerin [Nitrostat] 0.4 mg SL Q5M PRN 03/18/22 03/18/22 Unknown Pantoprazole [Protonix TAB] 40 mg PO QDAY 03/18/22 03/18/22 Unknown Spironolactone [Aldactone] 25 mg PO QDAY 03/18/22 03/18/22 Unknown glipiZIDE [Glucotrol] 5 mg PO QDAY 03/18/22 03/18/22 Unknown Previous Rx's Medication Instructions Recorded Last Taken Type Furosemide [Lasix TAB] 20 mg PO QDAY #30 tab 03/21/22 Unknown Rx Metoprolol [Lopressor TAB] 12.5 mg PO BID #60 tablet 03/21/22 Unknown Rx Warfarin [Coumadin] 6 mg PO DAILY@1700 #90 tablet 03/21/22 Unknown Rx Allergies Allergy/AdvReac Type Severity Reaction Status Date / Time No Known Allergies Allergy Verified 03/18/22 16:29 ED Review of Systems Comment: All other systems reviewed and negative Musculoskeletal: myalgia (generalized muscleaches) ED Past Medical Hx - Past Medical History Hx Hypertension: Yes Hx Congestive Heart Failure: Yes Hx Diabetes: Yes Hx GERD: Yes Hx Arthritis: Yes Hx Seizures: Yes - Social History Smoking Status: Never Smoker - Medications Home Medications: Home Medications Medication Instructions Recorded Confirmed Last Taken Type AtorvaSTATin [Lipitor] 20 mg PO QHS 03/18/22 03/18/22 Unknown History Colchicine 0.6 mg PO QDAY 03/18/22 03/18/22 Unknown History Nitroglycerin [Nitrostat] 0.4 mg SL Q5M PRN 03/18/22 03/18/22 Unknown History Pantoprazole [Protonix TAB] 40 mg PO QDAY 03/18/22 03/18/22 Unknown History Spironolactone [Aldactone] 25 mg PO QDAY 03/18/22 03/18/22 Unknown History glipiZIDE [Glucotrol] 5 mg PO QDAY 03/18/22 03/18/22 Unknown History Furosemide [Lasix TAB] 20 mg PO QDAY #30 tab 03/21/22 Unknown Rx Metoprolol [Lopressor TAB] 12.5 mg PO BID #60 tablet 03/21/22 Unknown Rx Warfarin [Coumadin] 6 mg PO DAILY@1700 #90 tablet 03/21/22 Unknown Rx ED Physical Exam - General Limitations: No Limitations General appearance: alert, in no apparent distress - Head Head exam: Present: normal inspection - Eye Eye exam: Present: normal appearance Pupils: Present: normal accommodation - ENT ENT exam: Present: normal exam, normal orophraynx - Neck Neck exam: Present: normal inspection, full ROM. Absent: tenderness - Respiratory Respiratory exam: Present: normal lung sounds bilaterally. Absent: respiratory distress, accessory muscle use - Cardiovascular Cardiovascular Exam: Present: regular rate, normal rhythm, normal heart sounds - GI/Abdominal GI/Abdominal exam: Present: soft, normal bowel sounds. Absent: distended, tenderness - Extremities Exam Extremities exam: Present: pedal edema (+3 pitting edeam with venous stasis ) - Back Exam Back exam: Absent: tenderness - Neurological Exam Neurological exam: Present: alert, oriented X3 - Psychiatric Psychiatric exam: Present: normal affect, normal mood - Skin Skin exam: Present: warm, dry ED Medical Decision Making - Lab Data Result diagrams: 04/04/22 16:52 04/04/22 16:52 - Radiology Data generalized body muscle aches-- will go and get CBC, CMP, UA and thyroid panel with CK for muscle damage or and for any infectious process or electrolytes abnormality-- Labs reviewed noted with slightly elevated lactic acid and BUN -- likely as a result of dehydration-- CK is still pending at this point-- Will give ivf ns 1L bolus x 1-- and continue to monitor-- Pt requested for food and was fed-- This could also be as a result of cholesterol medication atovestatin -- will follow up on CK-- Pt signed out to Dr JAIN while waiting for this patient response to treatment and pending Lactic acid ED Disposition Clinical Impression: Generalized muscle ache, Lactic acidemia, Pneumonia, Acute exacerbation of CHF (congestive heart failure) Disposition: ADMITTED INPATIENT Does the pt Need Aspirin: No Condition: Stable Instructions: Musculoskeletal Pain, Bacterial Pneumonia (ED) Referrals: PRIMARY CARE, [Primary Care Provider] - 3-5 Days <SHARONA JAIN - Last Filed: 04/05/22 02:50> ED Review of Systems ROS: Stated complaint: PAIN ALL OVER Other details as noted in HPI ED Course Vital Signs 04/04/22 04/04/22 04/04/22 14:58 17:01 18:14 Temperature 97.3 F L Pulse Rate 96 H 92 H 110 H Respiratory 18 16 14 Rate Blood Pressure Blood Pressure 107/74 118/79 [Left] O2 Sat by Pulse 98 98 Oximetry 04/04/22 04/04/22 04/04/22 18:15 18:31 18:39 Temperature Pulse Rate 111 H 106 H Respiratory 28 H 32 H Rate Blood Pressure 115/68 115/68 Blood Pressure [Left] O2 Sat by Pulse 99 97 98 Oximetry 04/04/22 04/04/22 04/04/22 18:45 19:01 19:15 Temperature Pulse Rate 101 H 102 H 102 H Respiratory 24 31 H 29 H Rate Blood Pressure 115/68 111/72 112/64 Blood Pressure [Left] O2 Sat by Pulse 95 99 96 Oximetry 04/04/22 04/04/22 04/04/22 19:31 19:45 20:01 Temperature Pulse Rate 99 H 103 H 102 H Respiratory 26 H 25 H 21 Rate Blood Pressure 108/67 114/75 110/73 Blood Pressure [Left] O2 Sat by Pulse 96 96 95 Oximetry 04/04/22 04/04/22 04/04/22 20:15 20:31 20:45 Temperature Pulse Rate 102 H 99 H 97 H Respiratory 21 20 18 Rate Blood Pressure 102/70 100/60 110/67 Blood Pressure [Left] O2 Sat by Pulse 92 94 93 Oximetry 04/04/22 04/04/22 04/04/22 21:01 21:15 21:31 Temperature Pulse Rate 99 H 100 H 103 H Respiratory 16 21 22 Rate Blood Pressure 105/68 108/58 104/68 Blood Pressure [Left] O2 Sat by Pulse 95 94 95 Oximetry 04/04/22 04/04/22 04/04/22 21:45 22:01 22:15 Temperature Pulse Rate 99 H 109 H 109 H Respiratory 25 H 24 32 H Rate Blood Pressure 98/77 100/74 118/87 Blood Pressure [Left] O2 Sat by Pulse 92 96 89 Oximetry 04/04/22 04/04/22 04/04/22 22:31 22:45 22:52 Temperature Pulse Rate 112 H 107 H 114 H Respiratory 32 H 29 H 21 Rate Blood Pressure 118/87 118/87 108/67 Blood Pressure [Left] O2 Sat by Pulse 92 97 Oximetry 04/04/22 04/04/22 04/04/22 23:00 23:20 23:31 Temperature Pulse Rate 109 H 103 H Respiratory 25 H 12 38 H Rate Blood Pressure 108/67 Blood Pressure [Left] O2 Sat by Pulse 94 92 93 Oximetry 04/04/22 04/05/22 04/05/22 23:45 00:01 00:16 Temperature Pulse Rate 104 H 101 H 105 H Respiratory 23 20 20 Rate Blood Pressure Blood Pressure [Left] O2 Sat by Pulse 93 93 92 Oximetry 04/05/22 04/05/22 04/05/22 00:30 00:46 01:00 Temperature Pulse Rate 105 H 102 H 101 H Respiratory 20 20 20 Rate Blood Pressure Blood Pressure [Left] O2 Sat by Pulse 92 92 91 Oximetry 04/05/22 04/05/22 01:16 01:30 Temperature Pulse Rate 106 H 101 H Respiratory 20 20 Rate Blood Pressure 112/76 Blood Pressure [Left] O2 Sat by Pulse 92 92 Oximetry - Reevaluation(s) Reevaluation #1: 04/04/22 21:42 I have seen the patient myself and patient endorse feeling fatigued. Patient states she feels short of breath and think she has worsening of congestive heart failure. I will obtain BNP and also CXR for further evaluation; as well as influenze. Pending repeat lactic acid at 2200 ordered by my colleague. 04/05/22 02:00 SPOKE TO HOSPITALIST WHO KINDLY ACCEPTED THE PATIENT. ED Medical Decision Making - Lab Data Result diagrams: 04/04/22 16:52 04/04/22 16:52 Critical care attestation.: If time is entered above; I have spent that time in minutes in the direct care of this critically ill patient, excluding procedure time. ED Disposition Is pt being admited?: Yes Does the pt Need Aspirin: No Time of Disposition: 02:00
[2022-04-04 17:53] LABS: Alanine Aminotransferase 18 units/L (7-56); Albumin 3.6 g/dL (3.9-5); BUN/Creatinine Ratio 28; Basophils % (Auto) 0.4 % (0.0-1.8); Blood Urea Nitrogen 28 mg/dL (7-17); Calcium 9.5 mg/dL (8.4-10.2); Eosinophils % (Auto) 0.3 % (0.0-4.3); Hematocrit 45.3 % (30.3-42.9); Hemoglobin 14.6 gm/dl (10.1-14.3); Hemolysis Index 9; Lymphocytes % (Auto) 19.3 % (13.4-35.0); Mean Corpuscular HGB Conc 32 % (30-34); Mean Corpuscular Volume 92 fl (79-97); Monocytes % (Auto) 9.4 % (0.0-7.3); Platelet Count 179 K/mm3 (140-440); Red Blood Count 4.94 M/mm3 (3.65-5.03); Red Cell Distribution Width 16.4 % (13.2-15.2)
[2022-04-04 18:03] LABS: Free T4 (Free Thyroxine) 1.31 ng/dL (0.76-1.46)
[2022-04-04] MEDS ORDERED: SODIUM CHLORIDE 0.9% 1000 ML 1,000 ML IV ONE (19:35)
--- NOTE | 2022-04-04 22:39 | XRay Report ---
CHEST 1 VIEW 04/04/2022 9:12 PM INDICATION / CLINICAL INFORMATION: sob. COMPARISON: 03/17/2022 FINDINGS: SUPPORT DEVICES: Cardiac vascular support support/monitoring device external to the patient. HEART / MEDIASTINUM: Cardiomegaly. LUNGS / PLEURA: Perihilar and right greater than left basilar infiltrates likely edema/small effusion . No pneumothorax. ADDITIONAL FINDINGS: No significant additional findings. IMPRESSION: 1. CHF exacerbation. Signer Name: Alonso Thomas MD Signed: 04/04/2022 10:35 PM Workstation Name: [id number]
--- NOTE | 2022-04-04 23:44 | Cat Scan Report ---
CT abdomen pelvis w con INDICATION / CLINICAL INFORMATION: RIGHT UPPER QUADRANT DISCOMFORT. TECHNIQUE: Axial CT imaging of abdomen and pelvis was obtained with 80 cc Omni 350 IV contrast. Coronal and sagi ttal reformatted imaging obtained and reviewed. All CT scans at this location are performed using CT dose reduction for ALARA by means of automated exposure control. COMPARISON: None available. FINDINGS: CT abdomen with contrast demonstrates mild hepatomegaly with mild hepatic steatosis. No focal hepatic lesions are noted. Spleen, pancreas, and right kidney are normal. There is a simple cyst arising fro m the left posterior kidney measuring 4 cm. Gallbladder contains gallstones but does not appear to be acutely inflamed. Abdominal aorta is normal. Trace amount of free fluid is seen surrounding the tip of the liver. There is abdominal wall hernia, to the right of the umbilicus containing only fat. Size of the hernia sac is approximately 8 cm. There is mild to marked anasarca throughout the visualized soft tissues of the abdomen and pelvis. Visualized lung bases show consolidation/airspace disease throughout the right middle lobe and to a l tsering extent in the left lower lobe. The appearance is concerning for pneumonia. No significant acute osseous abnormality noted. CT pelvis with contrast does not demonstrate any mass, significant free fluid, or focal inflammatory process. GI tract is grossly unremarkable. IMPRESSION: 1. Mild hepatomegaly due to hepatic steatosis. 2. Airspace disease/consolidation noted throughout the right middle lobe and to a lesser extent, the left lower lobe. Findings are suspicious for pneumonia. Trace right pleural effusion. 3. Moderate anasarca present. 4. Right sided paraumbilical abdominal wall hernia containing only fat. Signer Name: Violet Moralez MD Signed: 04/04/2022 11:40 PM Workstation Name: [id number]
[2022-04-05] MEDS ORDERED: AZITHROMYCIN/NS 500 MG/250 ML 500 MG/250 ML BAG IV ONE (01:55)
[2022-04-05] MEDS ORDERED: LIDOCAINE-MPF (1%) 10 MG/1 ML VIAL 5 ML INFILTRATI ONE (01:55)
[2022-04-05] MEDS ORDERED: FUROSEMIDE 40 MG/4 ML INJ IV ONE (01:56)
[2022-04-05] MEDS ORDERED: ONDANSETRON 4 MG/2 ML INJ IV PRN (03:02)
[2022-04-05] MEDS ORDERED: DEXTROSE 50% IN WATER (25GM) 50 ML SYRINGE IV PRN (03:02)
[2022-04-05] MEDS ORDERED: MAGNESIUM HYDROXIDE (MOM) ORAL LIQD UDC PO PRN (03:02)
--- NOTE | 2022-04-05 03:20 | History and Physical Report ---
History of Present Illness Date of examination: 04/05/22 Date of admission: 04/05/2022 Chief complaint: Generalized muscle aches and Pain History of present illness: 66-year-old female with known history of CHF, hypertension, diabetes mellitus and history of seizure disorder presenting the emergency room today complaining of generalized body aches and pain which has been ongoing for the past 3 days. Symptoms have been getting progressively worse over the past few days. Indicates she has been compliant with her medications but she continues to have fluctuating swelling. She denies any chest pain, no fever or chills, no nausea vomiting and no abdominal pain. Patient denies any sick contacts and no recent travel. Denies any contact with anyone with COVID-19. Work-up in the emergency room today, lab reveals lactic acid of 2.2, BNP of 3574, BUN of 28 and creatinine 1.0 Chest x-ray consistent with CHF exacerbation. CT of the abdomen reveals hepatomegaly due to hepatic steatosis. Airspace disease/consolidation noted throughout the right middle lobe and to a lesser extent the left lower lobe, findings are suspicious for pneumonia. Trace right pleural effusion. Moderate anasarca is also present. Review of patient's record shows an ejection fraction of 15 to 20% in February 2022. Patient being admitted for CHF exacerbation/underlying pneumonia with lactic acidosis. Past History Past Medical History: arthritis, diabetes, GERD, heart failure, hypertension, hyperlipidemia, seizures Past Surgical History: No surgical history Social history: no significant social history Family history: no significant family history Medications and Allergies Allergies Allergy/AdvReac Type Severity Reaction Status Date / Time No Known Allergies Allergy Verified 03/18/22 16:29 Home Medications Medication Instructions Recorded Confirmed Last Taken Type AtorvaSTATin [Lipitor] 20 mg PO QHS 03/18/22 03/18/22 Unknown History Colchicine 0.6 mg PO QDAY 03/18/22 03/18/22 Unknown History Nitroglycerin [Nitrostat] 0.4 mg SL Q5M PRN 03/18/22 03/18/22 Unknown History Pantoprazole [Protonix TAB] 40 mg PO QDAY 03/18/22 03/18/22 Unknown History Spironolactone [Aldactone] 25 mg PO QDAY 03/18/22 03/18/22 Unknown History glipiZIDE [Glucotrol] 5 mg PO QDAY 03/18/22 03/18/22 Unknown History Furosemide [Lasix TAB] 20 mg PO QDAY #30 tab 03/21/22 Unknown Rx Metoprolol [Lopressor TAB] 12.5 mg PO BID #60 tablet 03/21/22 Unknown Rx Warfarin [Coumadin] 6 mg PO DAILY@1700 #90 tablet 03/21/22 Unknown Rx Review of Systems Constitutional: fatigue, weakness, no fever, no chills Ears, nose, mouth and throat: no nasal congestion, no sore throat Cardiovascular: no chest pain, no palpitations Respiratory: shortness of breath, no cough Gastrointestinal: no abdominal pain, no nausea, no vomiting, no diarrhea Genitourinary Female: no pelvic pain, no flank pain, no dysuria Musculoskeletal: no neck pain, no low back pain Integumentary: no rash, no pruritis Neurological: no headaches, no confusion Psychiatric: no anxiety, no depression Endocrine: no polyphagia, no polydipsia, no polyuria, no nocturia Exam - Constitutional Vitals: Temp Pulse Resp BP Pulse Ox 97.3 F L 101 H 20 112/76 92 04/04/22 14:58 04/05/22 01:30 04/05/22 01:30 04/05/22 01:30 04/05/22 01:30 General appearance: Present: no acute distress, well-nourished - EENT Eyes: Present: PERRL, EOM intact. Absent: scleral icterus ENT: hearing intact, clear oral mucosa, dentition normal - Neck Neck: Present: supple, normal ROM - Respiratory Respiratory effort: normal Respiratory: bilateral: diminished - Cardiovascular Rhythm: regular Heart Sounds: Present: S1 & S2. Absent: gallop, systolic murmur, diastolic murmur, rub, click - Extremities Extremities: no ischemia, pulses intact, pulses symmetrical, normal temperature, normal color, Full ROM Extremity abnormal: edema (2+ bilateral lower extremity edema) Peripheral Pulses: within normal limits - Abdominal General gastrointestinal: Present: soft, non-tender, non-distended, normal bowel sounds. Absent: mass - Integumentary Integumentary: Present: clear, warm, dry, normal turgor. Absent: rash - Musculoskeletal Musculoskeletal: strength equal bilaterally - Psychiatric Psychiatric: appropriate mood/affect, intact judgment & insight, memory intact, cooperative - Neurologic Neurologic: CNII-XII intact, no focal deficits, moves all extremities Results - Labs CBC & Chem 7: 04/04/22 16:52 04/04/22 16:52 Labs: Abnormal lab results 04/04/22 04/04/22 04/04/22 Range/Units 16:52 16:52 16:52 Hgb 14.6 H (10.1-14.3) gm/dl Hct 45.3 H (30.3-42.9) % RDW 16.4 H (13.2-15.2) % [place] % (Auto) 9.4 H (0.0-7.3) % [place] # (Auto) 1.0 H (0.0-0.8) K/mm3 Seg Neutrophils % 70.6 H (40.0-70.0) % Sodium 135 L (137-145) mmol/L BUN 28 H (7-17) mg/dL Glucose 124 H (65-100) mg/dL Lactic Acid 2.20 H* (0.7-2.0) mmol/L Total Bilirubin 2.70 H (0.1-1.2) mg/dL C-Reactive Protein 9.60 H (0.00-1.30) mg/dL NT-Pro-B Natriuret Pep (0-900) pg/mL Albumin 3.6 L (3.9-5) g/dL 04/04/22 04/04/22 Range/Units 22:37 22:37 Hgb (10.1-14.3) gm/dl Hct (30.3-42.9) % RDW (13.2-15.2) % [place] % (Auto) (0.0-7.3) % [place] # (Auto) (0.0-0.8) K/mm3 Seg Neutrophils % (40.0-70.0) % Sodium (137-145) mmol/L BUN (7-17) mg/dL Glucose (65-100) mg/dL Lactic Acid 2.10 H* (0.7-2.0) mmol/L Total Bilirubin (0.1-1.2) mg/dL C-Reactive Protein (0.00-1.30) mg/dL NT-Pro-B Natriuret Pep 3574 H (0-900) pg/mL Albumin (3.9-5) g/dL Assessment and Plan Assessment: 1. CHF exacerbation 2. Pneumonia 3. Lactic acidosis 4. Diabetes mellitus Plan: 1. Patient admitted and placed on diuretics. We will monitor input and output and also monitor daily weights. 2. Patient placed on empiric IV antibiotics for possible underlying pneumonia. 3. We will resume routine home medications and monitor vital signs closely. 4. We will request cardiology evaluation and recommendations. 5. Placed on sliding scale insulin. We will monitor Accu-Cheks. DVT prophylaxis: Subcutaneous heparin CODE STATUS: Full code
[2022-04-05] MEDS ORDERED: VANCOMYCIN PHARMACY TO DOSE IV SCH (04:00)
[2022-04-05] MEDS ORDERED: VANCOMYCIN 1,750 MG in SODIUM CHLORIDE 0.9% 500 ML 500 ML IV ONE (04:30)
[2022-04-05] MEDS ORDERED: HEPARIN 5,000 UNIT/1 ML VIAL SUB-Q SCH (06:00)
[2022-04-05] MEDS: FUROSEMIDE 40 MG/4 ML INJ IV SCH ×2 (06:01→18:18)
[2022-04-05 06:16] LABS: Color,Urine Yellow (Yellow)
[2022-04-05 06:20] LABS: Bacteria,Urine 1+ /HPF (Negative)
[2022-04-05] MEDS: CEFEPIME/NS 2 GM/100 ML 2 GM/100 ML BAG IV SCH ×3 (07:00→22:27)
[2022-04-05] MEDS: INSULIN LISPRO 100 UNIT/ML SUB-Q SCH ×4 (07:06→22:49)
--- NOTE | 2022-04-05 09:14 | Event Note ---
Date: 04/05/22 Patient seen and examined at bedside. Currently on nasal cannula at 2LPM. Patient was in discomfort due to needing to have a bowel movement. She also has her LifeVest on. She does not wear supplemental oxygen at home. Previous hospitalization was reviewed and noted that she was treated for LV thrombus. Patient currently prescribed warfarin 6 mg daily. We will restart anticoagulation with pharmacy to dose. We can continue with current care plan.
[2022-04-05] MEDS: MORPHINE 4 MG/1 ML INJ IV PRN ×2 (10:45→19:48)
[2022-04-05] MEDS: ENOXAPARIN 100 MG/1 ML INJ SUB-Q SCH ×2 (12:19→22:28)
[2022-04-05 14:24] LABS: INR 1.52 (0.87-1.13)
[2022-04-05] MEDS: PANTOPRAZOLE 40 MG TAB PO SCH (18:18)
[2022-04-05] MEDS: VANCOMYCIN 1,250 MG in SODIUM CHLORIDE 0.9% 250ML 250 ML IV SCH (18:18)
[2022-04-05] MEDS: SPIRONOLACTONE 25 MG TAB PO SCH (18:18)
[2022-04-05] MEDS: WARFARIN 5 MG TAB PO SCH (18:18)
[2022-04-05] MEDS: METOPROLOL TARTRATE 25 MG TAB PO SCH (22:49)
[2022-04-06] MEDS: MORPHINE 2 MG/1 ML INJ IV PRN ×2 (05:26→21:55)
[2022-04-06] MEDS ORDERED: ALPRAZolam 0.25 MG TAB PO ONE ×2 (05:42→22:30)
[2022-04-06] MEDS: CEFEPIME/NS 2 GM/100 ML 2 GM/100 ML BAG IV SCH ×2 (05:44→18:38)
[2022-04-06] MEDS: FUROSEMIDE 40 MG/4 ML INJ IV SCH (06:14)
[2022-04-06] MEDS: VANCOMYCIN 1,250 MG in SODIUM CHLORIDE 0.9% 250ML 250 ML IV SCH (06:14)
[2022-04-06] MEDS: INSULIN LISPRO 100 UNIT/ML SUB-Q SCH ×3 (08:22→22:45)
[2022-04-06 09:04] LABS: Basophils % (Auto) 0.2 % (0.0-1.8); Eosinophils % (Auto) 0.2 % (0.0-4.3); Hematocrit 47.4 % (30.3-42.9); Hemoglobin 14.9 gm/dl (10.1-14.3); Lymphocytes # (Auto) 1.3 K/mm3 (1.2-5.4); Lymphocytes % (Auto) 10.8 % (13.4-35.0); Mean Corpuscular HGB Conc 32 % (30-34); Mean Corpuscular Volume 93 fl (79-97); Monocytes # (Auto) 1.1 K/mm3 (0.0-0.8); Monocytes % (Auto) 9.3 % (0.0-7.3); Platelet Count 190 K/mm3 (140-440); Red Blood Count 5.12 M/mm3 (3.65-5.03); Red Cell Distribution Width 17.4 % (13.2-15.2)
[2022-04-06 09:06] LABS: INR 1.63 (0.87-1.13)
[2022-04-06 09:10] LABS: Calcium 9.4 mg/dL (8.4-10.2)
[2022-04-06] MEDS: SPIRONOLACTONE 25 MG TAB PO SCH (11:57)
[2022-04-06] MEDS: ENOXAPARIN 100 MG/1 ML INJ SUB-Q SCH ×2 (11:57→21:53)
[2022-04-06] MEDS: PANTOPRAZOLE 40 MG TAB PO SCH (11:57)
[2022-04-06] MEDS: METOPROLOL TARTRATE 25 MG TAB PO SCH ×2 (11:57→21:53)
--- NOTE | 2022-04-06 12:45 | Consultation ---
History of Present Illness Consult date: 04/06/22 Requesting physician: MONCHO TOMPKINS Consult reason: congestive heart failure History of present illness: Patient 66-year-old female with a past medical history of HFrEF, LV thrombus on echo, hypertension, diabetes, history of seizures, dementia, obesity who presents to the ED with a complaint of generalized body pain. History is taken from chart due to patient's mental status at time of interview. Patient however did indicate she was having pain in her legs and abdomen. Per documentation chana castaneda symptoms have been going on for last 3 days. Unclear if patient has been compliant with medications. In the ED patient's labs showed to have elevated lactic acid, elevated BNP, CXR read as CHF however CT of abdomen suggests suspicious for pneumonia. Patient apparently follows with [facility] however was seen previously by our group during recent admission February. Cardiology is consulted for CHF. Past History Past Medical History: arthritis, diabetes, GERD, heart failure, hypertension, hyperlipidemia, seizures, other (LV thrombus,dementia) Past Surgical History: No surgical history Social history: lives with family Family history: other (unabel to obtain due to mental status) Medications and Allergies Allergies Allergy/AdvReac Type Severity Reaction Status Date / Time No Known Allergies Allergy Verified 03/18/22 16:29 Home Medications Medication Instructions Recorded Confirmed Last Taken Type AtorvaSTATin [Lipitor] 20 mg PO QHS 03/18/22 04/05/22 Unknown History Colchicine 0.6 mg PO QDAY 03/18/22 04/05/22 Unknown History Nitroglycerin [Nitrostat] 0.4 mg SL Q5M PRN 03/18/22 04/05/22 Unknown History Pantoprazole [Protonix TAB] 40 mg PO QDAY 03/18/22 04/05/22 Unknown History Spironolactone [Aldactone] 25 mg PO QDAY 03/18/22 04/05/22 Unknown History glipiZIDE [Glucotrol] 5 mg PO QDAY 03/18/22 04/05/22 Unknown History Furosemide [Lasix TAB] 20 mg PO QDAY #30 tab 03/21/22 04/05/22 Unknown Rx Metoprolol [Lopressor TAB] 12.5 mg PO BID #60 tablet 03/21/22 04/05/22 Unknown Rx Warfarin [Coumadin] 6 mg PO DAILY@1700 #90 tablet 03/21/22 04/05/22 Unknown Rx Active Meds: Active Medications Acetaminophen (Acetaminophen 325 Mg Tab) 650 mg PO Q4H PRN PRN Reason: Pain MILD(1-3)/Fever >100.5/LIM Atorvastatin Calcium (Atorvastatin 20 Mg Tab) 20 mg PO QHS [facility] Last Admin: 04/05/22 22:29 Dose: 20 mg Dextrose (Dextrose 50% In Water (25gm) 50 Ml Syringe) 0 ml IV Q30MIN PRN; Protocol PRN Reason: Hypoglycemia Enoxaparin Sodium (Enoxaparin 100 Mg/1 Ml Inj) 90 mg 1 mg/kg (90 mg) SUB-Q Q12HR [facility]; Protocol Last Admin: 04/06/22 11:57 Dose: 90 mg Furosemide (Furosemide 40 Mg Tab) 40 mg PO QDAY [facility] Vancomycin HCl 1,250 mg/ (Sodium Chloride) 275 mls @ 166.667 mls/hr IV Q24H [facility] Cefepime HCl (Cefepime/Ns 2 Gm/100 Ml) 2 gm in 100 mls @ 200 mls/hr IV Q12H [facility]; Protocol Insulin Human Lispro (Insulin Lispro 100 Unit/Ml) 0 unit SUB-Q ACHS [facility]; Protocol Last Admin: 04/06/22 08:22 Dose: Not Given Magnesium Hydroxide (Magnesium Hydroxide (Mom) Oral Liqd Udc) 30 ml PO Q4H PRN PRN Reason: Constipation Metoprolol Tartrate (Metoprolol Tartrate 25 Mg Tab) 12.5 mg PO BID [facility] Last Admin: 04/06/22 11:57 Dose: 12.5 mg Morphine Sulfate (Morphine 2 Mg/1 Ml Inj) 2 mg IV Q4H PRN PRN Reason: Pain, Moderate (4-6) Last Admin: 04/06/22 05:26 Dose: 2 mg Morphine Sulfate (Morphine 4 Mg/1 Ml Inj) 4 mg IV Q4H PRN PRN Reason: Pain , Severe (7-10) Last Admin: 04/05/22 19:48 Dose: 4 mg Ondansetron HCl (Ondansetron 4 Mg/2 Ml Inj) 4 mg IV Q8H PRN PRN Reason: Nausea And Vomiting Pantoprazole Sodium (Pantoprazole 40 Mg Tab) 40 mg PO QDAY [facility] Last Admin: 04/06/22 11:57 Dose: 40 mg Sodium Chloride (Sodium Chloride 0.9% 10 Ml Flush Syringe) 10 ml IV BID [facility] Last Admin: 04/06/22 11:58 Dose: 10 ml Sodium Chloride (Sodium Chloride 0.9% 10 Ml Flush Syringe) 10 ml IV PRN PRN PRN Reason: LINE FLUSH Spironolactone (Spironolactone 25 Mg Tab) 25 mg PO QDAY [facility] Last Admin: 04/06/22 11:57 Dose: 25 mg Warfarin Sodium (Warfarin 5 Mg Tab) 5 mg PO DAILY@1700 [facility] Last Admin: 04/05/22 18:18 Dose: 5 mg Review of Systems ROS unobtainable: due to mental status Physical Examination Vital Signs Temp Pulse Resp BP Pulse Ox 97.3 F L 96 H 18 107/74 98 04/04/22 14:58 04/04/22 14:58 04/04/22 14:58 04/04/22 14:58 04/04/22 14:58 General appearance: other (lethargic, AMS) HEENT: Positive: PERRL Neck: Positive: trachea midline, thyromegaly Lungs: Positive: Normal Breath Sounds Neuro: Positive: Grossly Intact Abdomen: Positive: Soft, Tender, Distended Skin: Negative: Rash, Suspicious Lesions, Ulceration Extremities: Present: upper extr. pulses. Absent: edema Results 04/06/22 07:39 04/06/22 07:39 Coagulation 04/05/22 04/06/22 Range/Units 13:32 07:39 PT 20.2 H 21.3 H (12.2-14.9) Sec. INR 1.52 H 1.63 H (0.87-1.13) CBC 04/06/22 Range/Units 07:39 WBC 11.7 H (4.5-11.0) K/mm3 RBC 5.12 H (3.65-5.03) M/mm3 Hgb 14.9 H (10.1-14.3) gm/dl Hct 47.4 H (30.3-42.9) % Plt Count 190 (140-440) K/mm3 Lymph # (Auto) 1.3 (1.2-5.4) K/mm3 [place] # (Auto) 1.1 H (0.0-0.8) K/mm3 Eos # (Auto) 0.0 (0.0-0.4) K/mm3 Baso # (Auto) 0.0 (0.0-0.1) K/mm3 Comprehensive Metabolic Panel 04/06/22 Range/Units 07:39 Sodium 135 L (137-145) mmol/L Potassium 5.2 H (3.6-5.0) mmol/L Chloride 98.4 (98-107) mmol/L Carbon Dioxide 19 L (22-30) mmol/L BUN 38 H (7-17) mg/dL Creatinine 1.4 H (0.6-1.2) mg/dL Glucose 99 (65-100) mg/dL Calcium 9.4 (8.4-10.2) mg/dL - Imaging and Cardiology Echo: report reviewed EKG: pending Assessment and Plan Patient 66-year-old female with a past medical history of HFrEF, LV thrombus on echo, hypertension, diabetes, history of seizures, dementia, obesity who presents to the ED with a complaint of generalized body pain PNA? LActi acidodsis Chronic HFrEF- Hypertension Diabetes Obesity LV Thrombus- on warfarin as an outpatient Dementia? Echo 03/17/2022-EF 15 to 20%. LV is moderately dilated. Severe global hypokinesis of LV. Right ventricular systolic function is mildly reduced. Right ventricle is dilated. Mild to moderate tricuspid regurgitation. Large mobile mass in inferobasal area thrombus noted in LV Plan: No EKG in chart EKG pending. Patient not indicating any complaints of chest pain BNP noted to be elevated however lower than previous admission. Patient also appears near euvolemic on exam with no bilateral lower extremity edema. Patient was given Lasix IV and creatinine noted to increase today. Will stop IV Lasix and convert to Lasix 40 mg p.o. daily. Strict I&O's, daily weights, and repeat BMP in the a.m. with close monitoring of renal function Continue metoprolol 12.5 mg p.o. twice daily. Will titrate as needed Hold KATHARINA or ARB due to low/soft BP Per Echo results on 03/17/2022- show thrombus in LV anticoagulation with Lovenox with bridge therapy to Coumadin pharmacy to dose. Goal INR 2.5-3.5 Patient in conjunction with Dr. Bello who agrees with plan of care - Patient Problems (1) HFrEF (heart failure with reduced ejection fraction) Current Visit: Yes Status: Acute (2) Generalized muscle ache Current Visit: Yes Status: Acute (3) Lactic acidemia Current Visit: Yes Status: Acute (4) Pneumonia Current Visit: Yes Status: Acute (5) Diabetes Current Visit: No Status: Acute (6) Hypertension Current Visit: No Status: Acute Qualifiers: Hypertension type: primary hypertension Qualified Code(s): I10 - Essential (primary) hypertension (7) Vascular dementia Current Visit: No Status: Acute Qualifiers: Dementia behavioral disturbance: with behavioral disturbance Qualified Code(s): F01.51 - Vascular dementia with behavioral disturbance
--- NOTE | 2022-04-06 15:02 | CT Calcium Scoring Report ---
Coronary Calcium Score Procedure: High-resolution computed tomographic imaging of the chest was performed on04/05/22 with particular attention paid to the coronary arteries. Images from the examination were analyzed for the presence and extent of coronary artery calcification, using coronary calcium quantification software. The patient tolerated the procedure well and there were no complications. The results of the coronary calcification analysis are provided below. The patient scores are compared with published data related to scores for people of a similar age and the same gender.
--- NOTE | 2022-04-06 15:13 | Progress Note ---
Assessment and Plan Assessment and plan: #Acute hypoxic respiratory failure #Pneumonia secondary to gram-negative and/or atypical organisms -CT scan shows RML consolidation, continue vancomycin and cefepime, will de-esc alate to clinical improvement -patient has no oxygen requirement at home -currently on 2L, will wean as tolerated -COVID PCR negative #Acute metabolic encephalopathy-improving -likely due to illness, patient now alert and oriented #Acute on chronic systolic heart failure -ruled out #LV thrombus -LVEF 10-15% -BNP less than previous admission; CXR reviewed -Lifevest -continue lasix, metoprolol and lisinopril -INR subtheraputic- goal 2.5-3.5; continue warfarin dosed by pharmacy with lovenox bridge #Abdominal pain #R paraumbilical hernia #Elevated bilirubin -patient reports excruciating abdominal pain -CT abd/pelvis: shows hepatomegaly and steatosis, hernia containing fat, moderate anasarca and R middle lobe consolidation -abdominal ultrasound ordered #Acute kidney injury #Lactic acidosis -baseline SCr 1.0 -> 1.4 after IV diuresis -IV lasix converted to PO per cardiology -avoid nephrotoxins and renally dose medications -if SCr worsens will consult Nephrology #Type II diabetes mellitus -continue SSI and accuchecks #Disposition -Patient reports living with son Juwan Leon. I called Mr. Leon and left a voicemail. Physical therapy evaluation ordered to help with discharge planning History Interval history: No acute events overnight per nursing. Patient more alert today and states that she lives at home with her son. She reports being ambulatory with shortness of breath with exertion. We will contact family to get further information about patient's baseline and home situation. Hospitalist Physical - Physical exam Narrative exam: GENERAL: Well-developed well-nourished. In no acute distress. HEENT: Right EJ in place. Nasal cannula in place at 2 L/min. CHEST/LUNGS: Coarse breath sounds bilaterally on supplemental oxygen. HEART/CARDIOVASCULAR: RRR. No murmur, rubs or gallops appreciated. ABDOMEN: +BS. NT/ND. SKIN: Wrinkly skin. NEURO: No focal motor deficit. Follows all commands and is ambulatory. MUSCULOSKELETAL: No joint effusion EXTREMITIES: Darkening of bilateral lower extremities. 2+ pedal pulses appreciated. Bilateral lower extremity edema greatly improved. PSYCH: Cooperative. - Constitutional Vitals: Temp Pulse Resp BP Pulse Ox 97.7 F 129 H 20 155/59 100 04/06/22 05:01 04/06/22 05:01 04/06/22 05:01 04/06/22 05:01 04/06/22 05:01 General appearance: Present: other (lethargic, AMS) Results - Labs CBC & Chem 7: 04/06/22 07:39 04/06/22 07:39 Labs: Laboratory Last Values WBC 11.7 K/mm3 (4.5-11.0) H 04/06/22 07:39 RBC 5.12 M/mm3 (3.65-5.03) H 04/06/22 07:39 Hgb 14.9 gm/dl (10.1-14.3) H 04/06/22 07:39 Hct 47.4 % (30.3-42.9) H 04/06/22 07:39 MCV 93 fl (79-97) 04/06/22 07:39 MCH 29 pg (28-32) 04/06/22 07:39 MCHC 32 % (30-34) 04/06/22 07:39 RDW 17.4 % (13.2-15.2) H 04/06/22 07:39 Plt Count 190 K/mm3 (140-440) 04/06/22 07:39 Lymph % (Auto) 10.8 % (13.4-35.0) L 04/06/22 07:39 [place] % (Auto) 9.3 % (0.0-7.3) H 04/06/22 07:39 Eos % (Auto) 0.2 % (0.0-4.3) 04/06/22 07:39 Baso % (Auto) 0.2 % (0.0-1.8) 04/06/22 07:39 Lymph # (Auto) 1.3 K/mm3 (1.2-5.4) 04/06/22 07:39 [place] # (Auto) 1.1 K/mm3 (0.0-0.8) H 04/06/22 07:39 Eos # (Auto) 0.0 K/mm3 (0.0-0.4) 04/06/22 07:39 Baso # (Auto) 0.0 K/mm3 (0.0-0.1) 04/06/22 07:39 Seg Neutrophils % 79.5 % (40.0-70.0) H 04/06/22 07:39 Seg Neutrophils # 9.3 K/mm3 (1.8-7.7) H 04/06/22 07:39 PT 21.3 Sec. (12.2-14.9) H 04/06/22 07:39 INR 1.63 (0.87-1.13) H 04/06/22 07:39 Sodium 135 mmol/L (137-145) L 04/06/22 07:39 Potassium 5.2 mmol/L (3.6-5.0) H 04/06/22 07:39 Chloride 98.4 mmol/L (98-107) 04/06/22 07:39 Carbon Dioxide 19 mmol/L (22-30) L 04/06/22 07:39 Anion Gap 23 mmol/L 04/06/22 07:39 BUN 38 mg/dL (7-17) H 04/06/22 07:39 Creatinine 1.4 mg/dL (0.6-1.2) H 04/06/22 07:39 Estimated GFR 45 ml/min 04/06/22 07:39 BUN/Creatinine Ratio 27 % 04/06/22 07:39 Glucose 99 mg/dL (65-100) 04/06/22 07:39 POC Glucose 113 mg/dL (70-105) H 04/06/22 05:05 Lactic Acid 2.10 mmol/L (0.7-2.0) H* 04/05/22 09:59 Calcium 9.4 mg/dL (8.4-10.2) 04/06/22 07:39 Total Bilirubin 2.70 mg/dL (0.1-1.2) H 04/04/22 16:52 AST 24 units/L (5-40) 04/04/22 16:52 ALT 18 units/L (7-56) 04/04/22 16:52 Alkaline Phosphatase 82 units/L (35-129) 04/04/22 16:52 Total Creatine Kinase 50 units/L (30-135) 04/04/22 19:36 C-Reactive Protein 9.60 mg/dL (0.00-1.30) H 04/04/22 16:52 NT-Pro-B Natriuret Pep 3574 pg/mL (0-900) H 04/04/22 22:37 Total Protein 7.6 g/dL (6.3-8.2) 04/04/22 16:52 Albumin 3.6 g/dL (3.9-5) L 04/04/22 16:52 Albumin/Globulin Ratio 0.9 % 04/04/22 16:52 TSH 3.060 mlU/mL (0.270-4.200) 04/04/22 16:52 Free T4 1.31 ng/dL (0.76-1.46) 04/04/22 16:52 Urine Color Yellow (Yellow) 04/05/22 06:02 Urine Turbidity Slightly cloudy (Clear) 04/05/22 06:02 Specific [place] (Man) 1.010 (1.003-1.030) 04/05/22 06:02 Ur Protein (Man) 2+ mg/dL (Negative) 04/05/22 06:02 Ur Ketones (Man) Negative (Negative) 04/05/22 06:02 Ur Nitrite (Man) Negative (Negative) 04/05/22 06:02 Urine Bilirubin (Man) Negative (Negative) 04/05/22 06:02 Leukocyte Esterase (Man) Small (Negative) 04/05/22 06:02 Urine WBC (Auto) 42.0 /HPF (0.0-6.0) H 04/05/22 06:02 Urine RBC (Auto) 24.0 /HPF (0.0-6.0) 04/05/22 06:02 U Epithel Cells (Auto) 5.0 /HPF (0-13.0) 04/05/22 06:02 Urine Bacteria (Auto) 1+ /HPF (Negative) 04/05/22 06:02 Urine RBC (Manual) 3+ (Negative) 04/05/22 06:02 Urine Yeast (Budding) 1+ /HPF 04/05/22 06:02 Coronavirus (PCR) Negative (Negative) 04/05/22 02:00 Microbiology: Microbiology 04/05/22 02:37 Peripheral/Venous Blood Culture - Preliminary NO GROWTH AFTER 24 HOURS 04/05/22 02:28 Peripheral/Venous Blood Culture - Preliminary NO GROWTH AFTER 24 HOURS Lloyd/IV: Voiding Method Bedpan Active Medications - Current Medications Current Medications: Generic Name Dose Route Start Last Admin Trade Name Freq PRN Reason Stop Dose Admin Acetaminophen 650 mg 04/05/22 03:02 Acetaminophen 325 Mg Tab PO Q4H PRN Pain MILD(1-3)/Fever >100.5/LIM Atorvastatin Calcium 20 mg 04/05/22 22:00 04/05/22 22:29 Atorvastatin 20 Mg Tab PO 20 mg QHS [facility] Administration Dextrose 0 ml 04/05/22 03:02 Dextrose 50% In Water (25gm) 50 Ml Syringe IV Q30MIN PRN Hypoglycemia Protocol Enoxaparin Sodium 90 mg 04/05/22 12:00 04/06/22 11:57 Enoxaparin 100 Mg/1 Ml Inj 1 mg/kg (90 mg) 90 mg SUB-Q Administration Q12HR [facility] Protocol Furosemide 40 mg 04/07/22 10:00 Furosemide 40 Mg Tab PO QDAY [facility] Vancomycin HCl 1,250 mg/ 275 mls @ 166.667 mls/hr 04/07/22 06:00 Sodium Chloride IV Q24H [facility] Cefepime HCl 2 gm in 100 mls @ 200 mls/hr 04/06/22 18:00 Cefepime/Ns 2 Gm/100 Ml IV Q12H [facility] Protocol Insulin Human Lispro 0 unit 04/05/22 07:30 04/06/22 08:22 Insulin Lispro 100 Unit/Ml SUB-Q Not Given ACHS [facility] Protocol Magnesium Hydroxide 30 ml 04/05/22 03:02 Magnesium Hydroxide (Mom) Oral Liqd Udc PO Q4H PRN Constipation Metoprolol Tartrate 12.5 mg 04/05/22 22:00 04/06/22 11:57 Metoprolol Tartrate 25 Mg Tab PO 12.5 mg BID [facility] Administration Morphine Sulfate 2 mg 04/05/22 03:02 04/06/22 05:26 Morphine 2 Mg/1 Ml Inj IV 2 mg Q4H PRN Administration Pain, Moderate (4-6) Morphine Sulfate 4 mg 04/05/22 03:02 04/05/22 19:48 Morphine 4 Mg/1 Ml Inj IV 4 mg Q4H PRN Administration Pain , Severe (7-10) Ondansetron HCl 4 mg 04/05/22 03:02 Ondansetron 4 Mg/2 Ml Inj IV Q8H PRN Nausea And Vomiting Pantoprazole Sodium 40 mg 04/05/22 12:00 04/06/22 11:57 Pantoprazole 40 Mg Tab PO 40 mg QDAY MELVIN Administration Sodium Chloride 10 ml 04/05/22 10:00 04/06/22 11:58 Sodium Chloride 0.9% 10 Ml Flush Syringe IV 10 ml BID MELVIN Administration Sodium Chloride 10 ml 04/05/22 03:02 Sodium Chloride 0.9% 10 Ml Flush Syringe IV PRN PRN LINE FLUSH Spironolactone 25 mg 04/05/22 12:00 04/06/22 11:57 Spironolactone 25 Mg Tab PO 25 mg QDAY MELVIN Administration Warfarin Sodium 5 mg 04/05/22 17:00 04/05/22 18:18 Warfarin 5 Mg Tab PO 5 mg DAILY@1700 MELVIN Administration Nutrition/Malnutrition Assess - Dietary Evaluation Nutrition/Malnutrition Findings: Nutrition Notes Start: 04/05/22 11:49 Freq: Status: Active Protocol: Document 04/06/22 13:40 CM (Rec: 04/06/22 13:57 CM [id number]) Co-Sign 04/06/22 13:40 WW Nutrition Notes Initial or Follow up Assessment Current Diagnosis Diabetes,Hypertension,Heart Failure,Hyperlipidemia Other Pertinent Diagnosis Seizure, GERD Current Diet Cardiac/Consistent Carbohydrate Diet Labs/Tests 04/06: Na 135 K 5.2 CO2 19 BUN 38 Cr 1.4 Pertinent Medications 04/06: Atorvastatin Lasix Warfarin/Coumadin Height 5 ft 2 in Weight 90.718 kg [place] Body Weight (kg) 50.00 BMI 36.6 Intake Prior to Admission Good Weight change and time frame No unintentional wt loss [employer] per malnutrition screening tool assessment. Weight Status Obese Subjective/Other Information RD consult for Warfarin/ Coumadin diet education. Pt inappropriate for full diet education but was briefly explained - provided handouts for review and contact information for questions. Pt reported decreased appetite x 3 days <50% of meals and intermittent abdominal pain while eating. 0% breakfast/lunch 04/05 per ADL notes. GI Symptoms Other Food Allergy No Skin Integrity/Comment Brad 15 - no breakdown Current % PO Negligible #1 Nutrition Diagnosis Inadequate protein-energy intake Etiology Abdominal pain while eating As Evidenced by Signs and Symptoms Pt report pf decreased appetite x3 days (<50% of meals) and 0% of breakfast/ lunch consumed 04/05 per ADL notes. Is patient on ventilator? No Is Patient Ambulatory and/or Out of Bed No REE-([place]-St. Jeor-confined to bed) 3719.856 Calculation Used for Recommendations [place]-St Jeor Additional Notes Protein: 0.8-1.2g/kg AdjBW; 56 -84g PRO q day Fluid Needs: 1500-1900mL q day or per MD. Nutrition Intervention Change Diet Order: Continue current diet order Add Supplement/Snack (indicate name/kcal Nepro BID (variety) /protein ) Provides kCal: 850 Provides Protein (gm) 38 Teaching Recipient Patient Learning Readiness Poor Teaching Methods Discussion,Handout Response to Teaching Unable to comprehend Education Handouts Provided NCM - Vitamin K and Medications Barriers to Learning Cognitive/Verbal RD phone number provided Yes Patient aware of follow up options Yes Goal #1 Pt to consume >75% of estimated energy/protein needs through current diet order / supplementation. Goal #2 Pt to maintain current weight status within 2.5% during LOS Follow-Up By: 04/09/22 Additional Comments Monitor %PO intake, GI symptoms, weight status, nutrition-related lab values, and needs for diet education.
[2022-04-06] MEDS: WARFARIN 5 MG TAB PO SCH (16:47)
[2022-04-07] MEDS: CEFEPIME/NS 2 GM/100 ML 2 GM/100 ML BAG IV SCH ×2 (05:04→17:17)
[2022-04-07] MEDS: ALPRAZolam 0.25 MG TAB PO ONE ×2 (05:17→06:28)
[2022-04-07] MEDS: VANCOMYCIN 1,250 MG in SODIUM CHLORIDE 0.9% 250ML 250 ML IV SCH (06:29)
[2022-04-07] MEDS ORDERED: LORazepam 2 MG/ML VIAL IM ONE (06:45)
[2022-04-07] MEDS: INSULIN LISPRO 100 UNIT/ML SUB-Q SCH ×4 (09:59→23:45)
[2022-04-07] MEDS ORDERED: FUROSEMIDE 40 MG TAB PO SCH (10:00)
--- NOTE | 2022-04-07 11:41 | Progress Note ---
Assessment and Plan Patient 66-year-old female with a past medical history of HFrEF, LV thrombus on echo, hypertension, diabetes, history of seizures, dementia, obesity who presents to the ED with a complaint of generalized body pain AMS PNA? Lacti acidodsis Chronic HFrEF- Hypertension Diabetes Obesity LV Thrombus- on warfarin as an outpatient Dementia? Echo 03/17/2022-EF 15 to 20%. LV is moderately dilated. Severe global hypokinesis of LV. Right ventricular systolic function is mildly reduced. Right ventricle is dilated. Mild to moderate tricuspid regurgitation. Large mobile mass in inferobasal area thrombus noted in LV Plan: Patient's heart rate 90-100 with PVCs on monitor will increase to metoprolol 25 mg p.o. twice daily Patient has significantly altered mental status this a.m. In light of mental status recommend conservative cardiac management Attempted to contact family yesterday unable to. Will attempt to contact family again today Continue Lasix 40 mg p.o. daily. Strict I&O's, daily weights, and repeat BMP in the a.m. with close monitoring of renal function Hold KATHARINA or ARB due to low/soft BP Per Echo results on 03/17/2022- show thrombus in LV anticoagulation with Lovenox with bridge therapy to Coumadin pharmacy to dose. Goal INR 2.5-3.5 Patient in conjunction with Dr. Bello who agrees with plan of care - Patient Problems (1) HFrEF (heart failure with reduced ejection fraction) Current Visit: Yes Status: Acute (2) Generalized muscle ache Current Visit: Yes Status: Acute (3) Lactic acidemia Current Visit: Yes Status: Acute (4) Pneumonia Current Visit: Yes Status: Acute (5) Diabetes Current Visit: No Status: Acute (6) Hypertension Current Visit: No Status: Acute Qualifiers: Hypertension type: primary hypertension Qualified Code(s): I10 - Essential (primary) hypertension (7) Vascular dementia Current Visit: No Status: Acute Qualifiers: Dementia behavioral disturbance: with behavioral disturbance Qualified Code(s): F01.51 - Vascular dementia with behavioral disturbance Subjective Date of service: 04/07/22 Principal diagnosis: Generalized pain, AMS Interval history: Patient with significantly altered mental status this a.m. Sinus 90s to 100s on monitor with PVCs Objective Vital Signs Temp Pulse Resp Resp BP Pulse Ox 04/07/22 08:31 99 04/07/22 04:38 97.8 F 96 H 16 116/63 99 04/07/22 00:00 18 100 04/06/22 22:25 17 04/06/22 22:00 18 04/06/22 21:55 18 04/06/22 21:53 98 H 118/77 04/06/22 21:21 97.8 F 52 L 18 141/118 100 04/06/22 21:03 98.9 F 98 H 18 118/77 100 04/06/22 16:45 18 116/83 04/06/22 16:00 18 96 - Physical Examination General: Other (Altered mental status) HEENT: Positive: PERRL Neck: Positive: trachea midline, thyromegaly Cardiac: Positive: Reg Rate and Rhythm Lungs: Positive: Normal Breath Sounds Neuro: Positive: Grossly Intact Abdomen: Positive: Soft, Tender, Distended Skin: Negative: Rash, Suspicious Lesions, Ulceration Extremities: Present: upper extr. pulses. Absent: edema - Imaging and Cardiology EKG: pending Echo: report reviewed - Telemetry EKG Rhythm: Sinus Rhythm - EKG Ventricular dysrhythmias: ventricular premature com
--- NOTE | 2022-04-07 11:56 | Ultrasound Report ---
ULTRASOUND ABDOMEN, COMPLETE INDICATION / CLINICAL INFORMATION: RUQ pain. COMPARISON: CT abdomen pelvis 04/04/2022. FINDINGS: PANCREAS: Not well-visualized. ABDOMINAL AORTA: No significant abnormality. IVC: No significant abnormality. LIVER: The liver is enlarged measuring 17.7 cm with mildly echogenic appearance. Normal hepatopedal b lood flow within the main portal vein. GALLBLADDER: The gallbladder is contracted and mildly thick-walled. Multiple shadowing stones are vis ualized in the gallbladder neck. No pericholecystic fluid. BILE DUCTS: No significant abnormality. Common bile duct measures 4 mm. KIDNEYS: Right: The right kidney measures 9.3 cm. No significant abnormality. Left: The left kidney measures 11.2 cm. Simple appearing upper pole cyst measuring 3.8 cm. SPLEEN: The spleen measures 9.5 cm. No significant abnormality. FREE FLUID: None. ADDITIONAL FINDINGS: None. IMPRESSION: 1. The gallbladder is contracted and mildly thick-walled with multiple stones visualized in the gallb ladder neck. 2. Hepatomegaly with mildly echogenic appearance of the liver, most commonly seen with steatosis. Scribed by: Hayley Rodrigez RDMS, VESTA, REBECCA Scribed: 04/07/2022 9:58 AM I have reviewed the images, agree with this report, and edited this report as needed. Signer Name: Anthony Seo MD Signed: 04/07/2022 11:52 AM Workstation Name: [employer]
[2022-04-07] MEDS: METOPROLOL TARTRATE 25 MG TAB PO SCH ×2 (12:07→22:43)
[2022-04-07] MEDS: ENOXAPARIN 100 MG/1 ML INJ SUB-Q SCH ×2 (12:40→22:45)
[2022-04-07] MEDS: PANTOPRAZOLE 40 MG TAB PO SCH (12:42)
[2022-04-07 13:05] LABS: INR 1.97 (0.87-1.13)
--- NOTE | 2022-04-07 13:24 | Progress Note ---
Assessment and Plan Assessment and plan: #Acute hypoxic respiratory failure #Pneumonia secondary to gram-negative and/or atypical organisms -CT scan shows RML consolidation, continue vancomycin and cefepime, will de-esc alate to clinical improvement. Blood cultures NGTD x48 hours. -patient has no oxygen requirement at home -currently on 2L, will wean as tolerated -COVID PCR negative #Acute metabolic encephalopathy-waxing and waning -likely due to illness Unsuccessful attempts at reaching patient's family to obtain more history regarding her baseline #Acute on chronic systolic heart failure -ruled out #LV thrombus with subtherapeutic INR -LVEF 10-15% -BNP less than previous admission; CXR reviewed. Cardiology consulted; appreciate recs. Continue conservative medical management. -Continue lifevest upon discharge -continue lasix 40 mg daily, metoprolol tartrate 25 mg twice daily, and spironolactone 25 mg daily -INR subtheraputic goal of 2.5-3.5; continue warfarin dosed by pharmacy with lovenox bridge. #Abdominal pain #R paraumbilical hernia #Elevated bilirubin -patient reports excruciating abdominal pain -CT abd/pelvis: shows hepatomegaly and steatosis, hernia containing fat, moderate anasarca and R middle lobe consolidation -abdominal ultrasound (04/07/2022) revealing cholelithiasis and steatosis. #Acute kidney injury #Lactic acidosis -baseline SCr 1.0 -> 1.4 after IV diuresis. Transition from IV Lasix to p.o. 40 mg daily. -avoid nephrotoxins and renally dose medications -Pending repeat BMP to determine if nephrology should be consulted for worsening renal function. #[id number] Type II diabetes mellitus -continue SSI and accuchecks #Disposition -Patient reports living with son Juwan Leon. I called Mr. Leon and left a voicemail. Physical therapy evaluation ordered to help with discharge planning Disposition Plan: Continue medical management Total Time Spent with Patient (Minutes): 45 minutes History Interval history: No acute events overnight. Hospitalist Physical - Constitutional Vitals: Temp Pulse Resp BP Pulse Ox 97.7 F 97 H 22 103/47 87 04/07/22 11:49 04/07/22 11:49 04/07/22 11:49 04/07/22 11:49 04/07/22 11:49 General appearance: Present: no acute distress, well-nourished, obese, other (lethargic, AMS) - EENT Eyes: Present: PERRL, EOM intact ENT: hearing intact, clear oral mucosa - Neck Neck: Present: supple, normal ROM - Respiratory Respiratory effort: normal Respiratory: bilateral: diminished (2 L nasal cannula) - Cardiovascular Rhythm: regular Heart Sounds: Present: S1 & S2 - Extremities Extremities: no ischemia, pulses intact, pulses symmetrical, No edema, normal temperature, normal color Peripheral Pulses: within normal limits - Abdominal General gastrointestinal: soft, non-tender, non-distended, normal bowel sounds - Integumentary Integumentary: Present: clear, warm, dry - Psychiatric Psychiatric: other (Unable to fully assess given metabolic encephalopathy) - Neurologic Neurologic: CNII-XII intact, other (Alert and oriented x1) - Allied Health Allied health notes reviewed: nursing Results - Labs CBC & Chem 7: 04/06/22 07:39 04/06/22 07:39 Labs: Laboratory Last Values WBC 11.7 K/mm3 (4.5-11.0) H 04/06/22 07:39 RBC 5.12 M/mm3 (3.65-5.03) H 04/06/22 07:39 Hgb 14.9 gm/dl (10.1-14.3) H 04/06/22 07:39 Hct 47.4 % (30.3-42.9) H 04/06/22 07:39 MCV 93 fl (79-97) 04/06/22 07:39 MCH 29 pg (28-32) 04/06/22 07:39 MCHC 32 % (30-34) 04/06/22 07:39 RDW 17.4 % (13.2-15.2) H 04/06/22 07:39 Plt Count 190 K/mm3 (140-440) 04/06/22 07:39 Lymph % (Auto) 10.8 % (13.4-35.0) L 04/06/22 07:39 [place] % (Auto) 9.3 % (0.0-7.3) H 04/06/22 07:39 Eos % (Auto) 0.2 % (0.0-4.3) 04/06/22 07:39 Baso % (Auto) 0.2 % (0.0-1.8) 04/06/22 07:39 Lymph # (Auto) 1.3 K/mm3 (1.2-5.4) 04/06/22 07:39 [place] # (Auto) 1.1 K/mm3 (0.0-0.8) H 04/06/22 07:39 Eos # (Auto) 0.0 K/mm3 (0.0-0.4) 04/06/22 07:39 Baso # (Auto) 0.0 K/mm3 (0.0-0.1) 04/06/22 07:39 Seg Neutrophils % 79.5 % (40.0-70.0) H 04/06/22 07:39 Seg Neutrophils # 9.3 K/mm3 (1.8-7.7) H 04/06/22 07:39 PT 24.9 Sec. (12.2-14.9) H 04/07/22 12:33 INR 1.97 (0.87-1.13) H 04/07/22 12:33 Sodium 135 mmol/L (137-145) L 04/06/22 07:39 Potassium 5.2 mmol/L (3.6-5.0) H 04/06/22 07:39 Chloride 98.4 mmol/L (98-107) 04/06/22 07:39 Carbon Dioxide 19 mmol/L (22-30) L 04/06/22 07:39 Anion Gap 23 mmol/L 04/06/22 07:39 BUN 38 mg/dL (7-17) H 04/06/22 07:39 Creatinine 1.4 mg/dL (0.6-1.2) H 04/06/22 07:39 Estimated GFR 45 ml/min 04/06/22 07:39 BUN/Creatinine Ratio 27 % 04/06/22 07:39 Glucose 99 mg/dL (65-100) 04/06/22 07:39 POC Glucose 117 mg/dL (70-105) H 04/06/22 22:34 Lactic Acid 2.10 mmol/L (0.7-2.0) H* 04/05/22 09:59 Calcium 9.4 mg/dL (8.4-10.2) 04/06/22 07:39 Total Bilirubin 2.70 mg/dL (0.1-1.2) H 04/04/22 16:52 AST 24 units/L (5-40) 04/04/22 16:52 ALT 18 units/L (7-56) 04/04/22 16:52 Alkaline Phosphatase 82 units/L (35-129) 04/04/22 16:52 Total Creatine Kinase 50 units/L (30-135) 04/04/22 19:36 C-Reactive Protein 9.60 mg/dL (0.00-1.30) H 04/04/22 16:52 NT-Pro-B Natriuret Pep 3574 pg/mL (0-900) H 04/04/22 22:37 Total Protein 7.6 g/dL (6.3-8.2) 04/04/22 16:52 Albumin 3.6 g/dL (3.9-5) L 04/04/22 16:52 Albumin/Globulin Ratio 0.9 % 04/04/22 16:52 TSH 3.060 mlU/mL (0.270-4.200) 04/04/22 16:52 Free T4 1.31 ng/dL (0.76-1.46) 04/04/22 16:52 Urine Color Yellow (Yellow) 04/05/22 06:02 Urine Turbidity Slightly cloudy (Clear) 04/05/22 06:02 Specific [place] (Man) 1.010 (1.003-1.030) 04/05/22 06:02 Ur Protein (Man) 2+ mg/dL (Negative) 04/05/22 06:02 Ur Ketones (Man) Negative (Negative) 04/05/22 06:02 Ur Nitrite (Man) Negative (Negative) 04/05/22 06:02 Urine Bilirubin (Man) Negative (Negative) 04/05/22 06:02 Leukocyte Esterase (Man) Small (Negative) 04/05/22 06:02 Urine WBC (Auto) 42.0 /HPF (0.0-6.0) H 04/05/22 06:02 Urine RBC (Auto) 24.0 /HPF (0.0-6.0) 04/05/22 06:02 U Epithel Cells (Auto) 5.0 /HPF (0-13.0) 04/05/22 06:02 Urine Bacteria (Auto) 1+ /HPF (Negative) 04/05/22 06:02 Urine RBC (Manual) 3+ (Negative) 04/05/22 06:02 Urine Yeast (Budding) 1+ /HPF 04/05/22 06:02 Coronavirus (PCR) Negative (Negative) 04/05/22 02:00 Influenza A (Rapid) Negative (Negative) 04/07/22 12:37 Influenza B (Rapid) Negative (Negative) 04/07/22 12:37 Microbiology: Microbiology 04/05/22 06:02 Urine,Clean Catch Urine Culture - Preliminary 04/05/22 02:37 Peripheral/Venous Blood Culture - Preliminary NO GROWTH AFTER 48 HOURS 04/05/22 02:28 Peripheral/Venous Blood Culture - Preliminary NO GROWTH AFTER 48 HOURS Lloyd/IV: Voiding Method Incontinent Active Medications - Current Medications Current Medications: Generic Name Dose Route Start Last Admin Trade Name Freq PRN Reason Stop Dose Admin Acetaminophen 650 mg 04/05/22 03:02 Acetaminophen 325 Mg Tab PO Q4H PRN Pain MILD(1-3)/Fever >100.5/LIM Atorvastatin Calcium 20 mg 04/05/22 22:00 04/06/22 21:53 Atorvastatin 20 Mg Tab PO 20 mg QHS MELVIN Administration Dextrose 0 ml 04/05/22 03:02 Dextrose 50% In Water (25gm) 50 Ml Syringe IV Q30MIN PRN Hypoglycemia Protocol Enoxaparin Sodium 90 mg 04/05/22 12:00 04/07/22 12:40 Enoxaparin 100 Mg/1 Ml Inj 1 mg/kg (90 mg) 90 mg SUB-Q Administration Q12HR [facility] Protocol Furosemide 40 mg 04/07/22 10:00 Furosemide 40 Mg Tab PO QDAY [facility] Vancomycin HCl 1,250 mg/ 275 mls @ 166.667 mls/hr 04/07/22 06:00 04/07/22 06:29 Sodium Chloride IV 166.667 mls/hr Q24H MELVIN Administration Cefepime HCl 2 gm in 100 mls @ 200 mls/hr 04/06/22 18:00 04/07/22 05:04 Cefepime/Ns 2 Gm/100 Ml IV 200 mls/hr Q12H MELVIN Administration Protocol Insulin Human Lispro 0 unit 04/05/22 07:30 04/07/22 12:00 Insulin Lispro 100 Unit/Ml SUB-Q Not Given ACHS [facility] Protocol Magnesium Hydroxide 30 ml 04/05/22 03:02 Magnesium Hydroxide (Mom) Oral Liqd Udc PO Q4H PRN Constipation Metoprolol Tartrate 25 mg 04/07/22 12:00 Metoprolol Tartrate 25 Mg Tab PO BID MELVIN Morphine Sulfate 2 mg 04/05/22 03:02 04/06/22 21:55 Morphine 2 Mg/1 Ml Inj IV 2 mg Q4H PRN Administration Pain, Moderate (4-6) Morphine Sulfate 4 mg 04/05/22 03:02 04/05/22 19:48 Morphine 4 Mg/1 Ml Inj IV 4 mg Q4H PRN Administration Pain , Severe (7-10) Ondansetron HCl 4 mg 04/05/22 03:02 Ondansetron 4 Mg/2 Ml Inj IV Q8H PRN Nausea And Vomiting Pantoprazole Sodium 40 mg 04/05/22 12:00 04/07/22 12:42 Pantoprazole 40 Mg Tab PO 40 mg QDAY MELVIN Administration Sodium Chloride 10 ml 04/05/22 10:00 04/07/22 12:43 Sodium Chloride 0.9% 10 Ml Flush Syringe IV 10 ml BID MELVIN Administration Sodium Chloride 10 ml 04/05/22 03:02 Sodium Chloride 0.9% 10 Ml Flush Syringe IV PRN PRN LINE FLUSH Spironolactone 25 mg 04/05/22 12:00 04/06/22 11:57 Spironolactone 25 Mg Tab PO 25 mg QDAY MELVIN Administration Warfarin Sodium 5 mg 04/05/22 17:00 04/06/22 16:47 Warfarin 5 Mg Tab PO 5 mg DAILY@1700 MELVIN Administration Nutrition/Malnutrition Assess - Dietary Evaluation Nutrition/Malnutrition Findings: Nutrition Notes Start: 04/05/22 11:49 Freq: Status: Active Protocol: Document 04/06/22 16:39 HARDY (Rec: 04/06/22 17:06 HARDY [id number]) Nutrition Notes Initial or Follow up Reassessment Current Diagnosis Diabetes,Hypertension,Heart Failure,Respiratory Failure, Hyperlipidemia Other Pertinent Diagnosis Seizure, GERD, COVID-19, Pneumonia, Metabolic Encephalopathy, ... Current Diet Cardiac/Consistent Carbohydrates Diet+ D Suppl ( since B 04/05). Labs/Tests 04/06: Na 135 K 5.2 CO2 19 BUN 38 Cr 1.4 Pertinent Medications 04/06: Atorvastatin Lasix Warfarin/Coumadin Height 5 ft 2 in Weight 90.718 kg [place] Body Weight (kg) 50.00 BMI 36.6 Weight change and time frame No body weight loss reported in 2 days. Weight Status Obese Subjective/Other Information RD consult for difficulty chewing, and dietary supplementation assessments. Pt's PO intake of meals has been Poor (<50%) according to ADL notes. I will prescribe dietary supplements to compensate for poor or insufficient PO intake of meals during LOS. Pt is on Nasal Cannula, O2 saturation @ 95%, according to Physical Assessment History notes. Pt complains of abdominal pain , according to Physical Assessment History notes. Pt presents bilateral-LE Edema , according to Progress notes. Pt lives with family, according to Progress notes. There are no reports available regading difficulty chewing on the chart at the time, I will disregard this consult. Percent of energy/protein needs met: Prescribed Cardiac/Consistent Carbohydrates Diet provides for energy/protein needs (1, 977 Kcal/86 g) during LOS; additionally, Dietary Supplements will compensate for possible poor or insufficient PO intake of meals with 440 Kcal and 20 g of protein. Burn Absent Trauma Absent GI Symptoms Other Food Allergy No Skin Integrity/Comment Assessment WNL. Current % PO Negligible Minimum of two criteria No Fluid Accumulation N/A Reduced Armor Reconnaissance Vehicle Driver Strength N/A (non-severe) Protein-Calorie Malnutrition N\A #2 Nutrition Diagnosis Overweight/obesity Etiology Possibly secondary to lifestyle. As Evidenced by Signs and Symptoms BMI: 36.6 Kg/m2. #1 Nutrition Diagnosis Inadequate protein-energy intake Diagnosis Progress(for reassessment Continues documentation) Is patient on ventilator? No Is Patient Ambulatory and/or Out of Bed Yes REE-([facility]-ambulatory/OOB) [ 1814.059 NUTR.MSJOOB] Kcal/Kg value to use for calculation 14 Approximate Energy Requirements Using 1270 kcal/Kg Calculation Used for Recommendations Kcal/kg Additional Notes Protein: 0.8-1.2 g/Kg AdjBW; 56-84 g/day. Fluids: 1-1.5 L/day, or as per MD. Nutrition Intervention Change Diet Order: Continue Cardiac/Consistent Carbohydrates Diet as tolerated. Add Supplement/Snack (indicate name/kcal Start 8 fl oz Glucertna; BID. /protein ) Provides kCal: 440 Provides Protein (gm) 20 Goal #1 Compensate, through dietary supplementation, for possible poor or insufficient PO intake of meals during LOS. Goal #2 Adjust the dietary intervention to better serve Pt's energy/protein needs and clinical conditions during LOS . Follow-Up By: 04/13/22 Additional Comments Continue monitoring food tolerance, %PO intake of meals , dietary supplements, and BM.
[2022-04-07] MEDS: SPIRONOLACTONE 25 MG TAB PO SCH (16:35)
[2022-04-07] MEDS: WARFARIN 5 MG TAB PO SCH (16:35)
[2022-04-08 05:27] LABS: Basophils % (Auto) 0.2 % (0.0-1.8); Eosinophils # (Auto) 0.1 K/mm3 (0.0-0.4); Eosinophils % (Auto) 0.5 % (0.0-4.3); Lymphocytes # (Auto) 1.5 K/mm3 (1.2-5.4); Lymphocytes % (Auto) 12.1 % (13.4-35.0); Mean Corpuscular HGB Conc 31 % (30-34); Mean Corpuscular Volume 93 fl (79-97); Monocytes # (Auto) 1.3 K/mm3 (0.0-0.8); Monocytes % (Auto) 10.5 % (0.0-7.3); Platelet Count 205 K/mm3 (140-440); Red Blood Count 4.72 M/mm3 (3.65-5.03); Red Cell Distribution Width 16.7 % (13.2-15.2)
[2022-04-08 05:34] LABS: Hematocrit 43.9 % (30.3-42.9); Hemoglobin 13.5 gm/dl (10.1-14.3)
[2022-04-08] MEDS: CEFEPIME/NS 2 GM/100 ML 2 GM/100 ML BAG IV SCH ×2 (05:34→17:27)
[2022-04-08 05:35] LABS: INR 2.53 (0.87-1.13)
[2022-04-08 05:43] LABS: Calcium 8.9 mg/dL (8.4-10.2)
[2022-04-08] MEDS: VANCOMYCIN 1,250 MG in SODIUM CHLORIDE 0.9% 250ML 250 ML IV SCH (05:59)
[2022-04-08] MEDS ORDERED: SODIUM CHLORIDE 0.9% 500 ML 500 ML IV ONE (08:00)
[2022-04-08] MEDS: INSULIN LISPRO 100 UNIT/ML SUB-Q SCH ×4 (09:36→22:29)
[2022-04-08] MEDS: ENOXAPARIN 100 MG/1 ML INJ SUB-Q SCH ×2 (09:37→22:29)
[2022-04-08] MEDS: METOPROLOL TARTRATE 25 MG TAB PO SCH ×2 (09:37→22:31)
[2022-04-08] MEDS: PANTOPRAZOLE 40 MG TAB PO SCH (09:37)
--- NOTE | 2022-04-08 11:54 | Progress Note ---
Assessment and Plan Assessment and plan: #Acute hypoxic respiratory failure #Pneumonia secondary to gram-negative and/or atypical organisms -CT scan shows RML consolidation, continue vancomycin and cefepime, will de-esc alate to clinical improvement. Blood cultures NGTD x48 hours. -patient has no oxygen requirement at home -currently on 2L, will wean as tolerated -Unremarkable COVID PCR and influenza A/B PCR #Acute metabolic encephalopathy-waxing and waning -likely due to illness Unsuccessful attempts at reaching patient's family to obtain more history regarding her baseline #Acute on chronic systolic heart failure -ruled out #LV thrombus with subtherapeutic INR #Subtherapeutic INRresolved -LVEF 10-15%; Continue lifevest upon discharge -BNP less than previous admission; CXR reviewed. Cardiology consulted; appreciate recs. Continue conservative medical management. -continue lasix 40 mg daily, metoprolol tartrate 25 mg twice daily, and spironolactone 25 mg daily -INR at goal (2.53.5). Continue with warfarin 4 mg daily. #Abdominal pain #R paraumbilical hernia #Elevated bilirubin -patient reports excruciating abdominal pain -CT abd/pelvis: shows hepatomegaly and steatosis, hernia containing fat, moderate anasarca and R middle lobe consolidation -abdominal ultrasound (04/07/2022) revealing cholelithiasis and steatosis. #Acute kidney injuryworsening #Lactic acidosis -baseline SCr 1.0 -> 1.4--> 1.7. Holding Lasix and Aldactone. Ordered 500 cc bolus to be given over 2 hours. -avoid nephrotoxins and renally dose medications #Hyperkalemia Potassium 5.3 Likely secondary to worsening renal function. Continue to monitor with repeat BMP. #[id number] Type II diabetes mellitus -continue SSI and accuchecks #Disposition -Patient reports living with son Juwan Leon. I called Mr. Leon and left a voicemail. Physical therapy evaluation ordered to help with discharge [place] Disposition Plan: Continue medical management Total Time Spent with Patient (Minutes): 45 minutes History Interval history: No acute events overnight. Hospitalist Physical - Constitutional Vitals: Temp Pulse Resp BP Pulse Ox 97.9 F 68 18 104/73 100 04/07/22 22:19 04/07/22 22:43 04/07/22 22:19 04/07/22 22:43 04/07/22 22:19 General appearance: Present: no acute distress, well-nourished, obese, other (lethargic, AMS) - EENT Eyes: Present: PERRL, EOM intact ENT: hearing intact, clear oral mucosa, dentition normal - Neck Neck: Present: supple, normal ROM - Respiratory Respiratory effort: normal Respiratory: bilateral: diminished (On 2 L nasal cannula) - Cardiovascular Rhythm: regular Heart Sounds: Present: S1 & S2 Details: Wearing LifeVest. - Extremities Extremities: no ischemia, pulses intact, pulses symmetrical, No edema, normal temperature, normal color Peripheral Pulses: within normal limits - Abdominal General gastrointestinal: soft, non-tender, non-distended, normal bowel sounds - Integumentary Integumentary: Present: clear, warm, dry - Psychiatric Psychiatric: cooperative - Neurologic Neurologic: CNII-XII intact, moves all extremities - Allied Health Allied health notes reviewed: nursing Results - Labs CBC & Chem 7: 04/08/22 04:49 04/08/22 04:49 Labs: Laboratory Last Values WBC 12.1 K/mm3 (4.5-11.0) H 04/08/22 04:49 RBC 4.72 M/mm3 (3.65-5.03) 04/08/22 04:49 Hgb 13.5 gm/dl (10.1-14.3) 04/08/22 04:49 Hct 43.9 % (30.3-42.9) H 04/08/22 04:49 MCV 93 fl (79-97) 04/08/22 04:49 MCH 29 pg (28-32) 04/08/22 04:49 MCHC 31 % (30-34) 04/08/22 04:49 RDW 16.7 % (13.2-15.2) H 04/08/22 04:49 Plt Count 205 K/mm3 (140-440) 04/08/22 04:49 Lymph % (Auto) 12.1 % (13.4-35.0) L 04/08/22 04:49 [place] % (Auto) 10.5 % (0.0-7.3) H 04/08/22 04:49 Eos % (Auto) 0.5 % (0.0-4.3) 04/08/22 04:49 Baso % (Auto) 0.2 % (0.0-1.8) 04/08/22 04:49 Lymph # (Auto) 1.5 K/mm3 (1.2-5.4) 04/08/22 04:49 [place] # (Auto) 1.3 K/mm3 (0.0-0.8) H 04/08/22 04:49 Eos # (Auto) 0.1 K/mm3 (0.0-0.4) 04/08/22 04:49 Baso # (Auto) 0.0 K/mm3 (0.0-0.1) 04/08/22 04:49 Seg Neutrophils % 76.7 % (40.0-70.0) H 04/08/22 04:49 Seg Neutrophils # 9.3 K/mm3 (1.8-7.7) H 04/08/22 04:49 PT 30.6 Sec. (12.2-14.9) H 04/08/22 04:49 INR 2.53 (0.87-1.13) H 04/08/22 04:49 Sodium 134 mmol/L (137-145) L 04/08/22 04:49 Potassium 5.3 mmol/L (3.6-5.0) H 04/08/22 04:49 Chloride 100.1 mmol/L (98-107) 04/08/22 04:49 Carbon Dioxide 19 mmol/L (22-30) L 04/08/22 04:49 Anion Gap 20 mmol/L 04/08/22 04:49 BUN 57 mg/dL (7-17) H 04/08/22 04:49 Creatinine 1.7 mg/dL (0.6-1.2) H 04/08/22 04:49 Estimated GFR 36 ml/min 04/08/22 04:49 BUN/Creatinine Ratio 34 % 04/08/22 04:49 Glucose 137 mg/dL (65-100) H 04/08/22 04:49 POC Glucose 135 mg/dL (70-105) H 04/08/22 07:20 Lactic Acid 2.10 mmol/L (0.7-2.0) H* 04/05/22 09:59 Calcium 8.9 mg/dL (8.4-10.2) 04/08/22 04:49 Total Bilirubin 2.70 mg/dL (0.1-1.2) H 04/04/22 16:52 AST 24 units/L (5-40) 04/04/22 16:52 ALT 18 units/L (7-56) 04/04/22 16:52 Alkaline Phosphatase 82 units/L (35-129) 04/04/22 16:52 Total Creatine Kinase 50 units/L (30-135) 04/04/22 19:36 C-Reactive Protein 9.60 mg/dL (0.00-1.30) H 04/04/22 16:52 NT-Pro-B Natriuret Pep 3574 pg/mL (0-900) H 04/04/22 22:37 Total Protein 7.6 g/dL (6.3-8.2) 04/04/22 16:52 Albumin 3.6 g/dL (3.9-5) L 04/04/22 16:52 Albumin/Globulin Ratio 0.9 % 04/04/22 16:52 TSH 3.060 mlU/mL (0.270-4.200) 04/04/22 16:52 Free T4 1.31 ng/dL (0.76-1.46) 04/04/22 16:52 Urine Color Yellow (Yellow) 04/05/22 06:02 Urine Turbidity Slightly cloudy (Clear) 04/05/22 06:02 Specific [place] (Man) 1.010 (1.003-1.030) 04/05/22 06:02 Ur Protein (Man) 2+ mg/dL (Negative) 04/05/22 06:02 Ur Ketones (Man) Negative (Negative) 04/05/22 06:02 Ur Nitrite (Man) Negative (Negative) 04/05/22 06:02 Urine Bilirubin (Man) Negative (Negative) 04/05/22 06:02 Leukocyte Esterase (Man) Small (Negative) 04/05/22 06:02 Urine WBC (Auto) 42.0 /HPF (0.0-6.0) H 04/05/22 06:02 Urine RBC (Auto) 24.0 /HPF (0.0-6.0) 04/05/22 06:02 U Epithel Cells (Auto) 5.0 /HPF (0-13.0) 04/05/22 06:02 Urine Bacteria (Auto) 1+ /HPF (Negative) 04/05/22 06:02 Urine RBC (Manual) 3+ (Negative) 04/05/22 06:02 Urine Yeast (Budding) 1+ /HPF 04/05/22 06:02 Vancomycin Trough 25.8 ug/mL (5.0-20.0) H 04/08/22 04:49 Coronavirus (PCR) Negative (Negative) 04/05/22 02:00 Influenza A (Rapid) Negative (Negative) 04/07/22 12:37 Influenza B (Rapid) Negative (Negative) 04/07/22 12:37 Microbiology: Microbiology 04/05/22 02:37 Peripheral/Venous Blood Culture - Preliminary NO GROWTH AFTER 72 HOURS 04/05/22 02:28 Peripheral/Venous Blood Culture - Preliminary NO GROWTH AFTER 72 HOURS 04/05/22 06:02 Urine,Clean Catch Urine Culture - Preliminary Lloyd/IV: Voiding Method External Female Catheter Active Medications - Current Medications Current Medications: Generic Name Dose Route Start Last Admin Trade Name Freq PRN Reason Stop Dose Admin Acetaminophen 650 mg 04/05/22 03:02 Acetaminophen 325 Mg Tab PO Q4H PRN Pain MILD(1-3)/Fever >100.5/LIM Atorvastatin Calcium 20 mg 04/05/22 22:00 04/07/22 22:44 Atorvastatin 20 Mg Tab PO 20 mg QHS MELVIN Administration Dextrose 0 ml 04/05/22 03:02 Dextrose 50% In Water (25gm) 50 Ml Syringe IV Q30MIN PRN Hypoglycemia Protocol Enoxaparin Sodium 90 mg 04/05/22 12:00 04/08/22 09:37 Enoxaparin 100 Mg/1 Ml Inj 1 mg/kg (90 mg) 04/09/22 10:59 90 mg SUB-Q Administration Q12HR [facility] Protocol Cefepime HCl 2 gm in 100 mls @ 200 mls/hr 04/06/22 18:00 04/08/22 05:34 Cefepime/Ns 2 Gm/100 Ml IV 200 mls/hr Q12H MELVIN Administration Protocol Insulin Human Lispro 0 unit 04/05/22 07:30 04/08/22 09:36 Insulin Lispro 100 Unit/Ml SUB-Q Not Given ACHS MELVIN Protocol Magnesium Hydroxide 30 ml 04/05/22 03:02 Magnesium Hydroxide (Mom) Oral Liqd Udc PO Q4H PRN Constipation Metoprolol Tartrate 25 mg 04/07/22 12:00 04/08/22 09:37 Metoprolol Tartrate 25 Mg Tab PO Not Given BID MELVIN Morphine Sulfate 2 mg 04/05/22 03:02 04/06/22 21:55 Morphine 2 Mg/1 Ml Inj IV 2 mg Q4H PRN Administration Pain, Moderate (4-6) Morphine Sulfate 4 mg 04/05/22 03:02 04/05/22 19:48 Morphine 4 Mg/1 Ml Inj IV 4 mg Q4H PRN Administration Pain , Severe (7-10) Ondansetron HCl 4 mg 04/05/22 03:02 Ondansetron 4 Mg/2 Ml Inj IV Q8H PRN Nausea And Vomiting Pantoprazole Sodium 40 mg 04/05/22 12:00 04/08/22 09:37 Pantoprazole 40 Mg Tab PO 40 mg QDAY MELVIN Administration Sodium Chloride 10 ml 04/05/22 10:00 04/08/22 09:37 Sodium Chloride 0.9% 10 Ml Flush Syringe IV 10 ml BID MELVIN Administration Sodium Chloride 10 ml 04/05/22 03:02 Sodium Chloride 0.9% 10 Ml Flush Syringe IV PRN PRN LINE FLUSH Warfarin Sodium 4 mg 04/08/22 17:00 Warfarin 2 Mg Tab PO 04/09/22 16:59 DAILY@1700 NR Nutrition/Malnutrition Assess - Dietary Evaluation Nutrition/Malnutrition Findings: Nutrition Notes Start: 04/05/22 11: 49 Freq: Status: Active Protocol: Document 04/06/22 16:39 HARDY (Rec: 04/06/22 17:06 HARDY [id number]) Nutrition Notes Initial or Follow up Reassessment Current Diagnosis Diabetes,Hypertension,Heart Failure,Respiratory Failure, Hyperlipidemia Other Pertinent Diagnosis Seizure, GERD, COVID-19, Pneumonia, Metabolic Encephalopathy, ... Current Diet Cardiac/Consistent Carbohydrates Diet+ D Suppl ( since B 04/05). Labs/Tests 04/06: Na 135 K 5.2 CO2 19 BUN 38 Cr 1.4 Pertinent Medications 04/06: Atorvastatin Lasix Warfarin/Coumadin Height 5 ft 2 in Weight 90.718 kg [place] Body Weight (kg) 50.00 BMI 36.6 Weight change and time frame No body weight loss reported in 2 days. Weight Status Obese Subjective/Other Information RD consult for difficulty chewing, and dietary supplementation assessments. Pt's PO intake of meals has been Poor (<50%) according to ADL notes. I will prescribe dietary supplements to compensate for poor or insufficient PO intake of meals during LOS. Pt is on Nasal Cannula, O2 saturation @ 95%, according to Physical Assessment History notes. Pt complains of abdominal pain , according to Physical Assessment History notes. Pt presents bilateral-LE Edema , according to Progress notes. Pt lives with family, according to Progress notes. There are no reports available regading difficulty chewing on the chart at the time, I will disregard this consult. Percent of energy/protein needs met: Prescribed Cardiac/Consistent Carbohydrates Diet provides for energy/protein needs (1, 977 Kcal/86 g) during LOS; additionally, Dietary Supplements will compensate for possible poor or insufficient PO intake of meals with 440 Kcal and 20 g of protein. Burn Absent Trauma Absent GI Symptoms Other Food Allergy No Skin Integrity/Comment Assessment WNL. 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 As Evidenced by Signs and Symptoms BMI: 36.6 Kg/m2. #1 Nutrition Diagnosis Inadequate protein-energy intake Diagnosis Progress(for reassessment Continues documentation) Is patient on ventilator? No Is Patient Ambulatory and/or Out of Bed Yes REE-([place]-ambulatory/OOB) [ 1814.059 NUTR.[id number]] Kcal/Kg value to use for calculation 14 Approximate Energy Requirements Using 1270 kcal/Kg Calculation Used for Recommendations Kcal/kg Additional Notes Protein: 0.8-1.2 g/Kg AdjBW; 56-84 g/day. Fluids: 1-1.5 L/day, or as per MD. Nutrition Intervention Change Diet Order: Continue Cardiac/Consistent Carbohydrates Diet as tolerated. Add Supplement/Snack (indicate name/kcal Start 8 fl oz Glucertna; BID. /protein ) Provides kCal: 440 Provides Protein (gm) 20 Goal #1 Compensate, through dietary supplementation, for possible poor or insufficient PO intake of meals during LOS. Goal #2 Adjust the dietary intervention to better serve Pt's energy/protein needs and clinical conditions during LOS . Follow-Up By: 04/13/22 Additional Comments Continue monitoring food tolerance, %PO intake of meals , dietary supplements, and BM.
--- NOTE | 2022-04-08 12:16 | Progress Note ---
Assessment and Plan Patient 66-year-old female with a past medical history of HFrEF, LV thrombus on echo, hypertension, diabetes, history of seizures, dementia, obesity who presents to the ED with a complaint of generalized body pain AMS PNA? Lacti acidodsis Chronic HFrEF- Hypertension Diabetes Obesity LV Thrombus- on warfarin as an outpatient Dementia? Echo 03/17/2022-EF 15 to 20%. LV is moderately dilated. Severe global hypokinesis of LV. Right ventricular systolic function is mildly reduced. Right ventricle is dilated. Mild to moderate tricuspid regurgitation. Large mobile mass in inferobasal area thrombus noted in LV Plan: Continue metoprolol 25 mg p.o. twice daily Mental status appears improved this AM Lasix was held due to elevated creainine recommend resuming Lasix 40 mg p.o. daily once patient is d/c Strict I&O's, daily weights, and repeat BMP in the a.m. with close monitoring of renal function Hold KATHARINA or ARB due to low/soft BP Per Echo results on 03/17/2022- show thrombus in LV anticoagulation with Lovenox with bridge therapy to Coumadin pharmacy to dose. Goal INR 2.5-3.5 Cardiac status otherwise stable Patient in conjunction with Dr. Bello who agrees with plan of care - Patient Problems (1) HFrEF (heart failure with reduced ejection fraction) Current Visit: Yes Status: Acute (2) Generalized muscle ache Current Visit: Yes Status: Acute (3) Lactic acidemia Current Visit: Yes Status: Acute (4) Pneumonia Current Visit: Yes Status: Acute (5) Diabetes Current Visit: No Status: Acute (6) Hypertension Current Visit: No Status: Acute Qualifiers: Hypertension type: primary hypertension Qualified Code(s): I10 - Essential (primary) hypertension (7) Vascular dementia Current Visit: No Status: Acute Qualifiers: Dementia behavioral disturbance: with behavioral disturbance Qualified Code(s): F01.51 - Vascular dementia with behavioral disturbance Subjective Date of service: 04/08/22 Principal diagnosis: Generalized pain, AMS Interval history: Patient sitting at side of the bed with improved mentation status this a.m. Sinus 90s to 100s on monitor with PVCs Objective Vital Signs Temp Pulse Resp BP BP Pulse Ox 04/07/22 22:43 68 104/73 04/07/22 22:19 97.9 F 68 18 104/73 100 04/07/22 20:00 100 04/07/22 16:13 97.9 F 99 H 20 113/65 90 - Physical Examination General: Other (Altered mental status) HEENT: Positive: PERRL Neck: Positive: trachea midline, thyromegaly Cardiac: Positive: Reg Rate and Rhythm Lungs: Positive: Normal Breath Sounds Neuro: Positive: Grossly Intact Abdomen: Positive: Soft, Tender, Distended Skin: Negative: Rash, Suspicious Lesions, Ulceration Extremities: Present: upper extr. pulses. Absent: edema - Labs and Meds Coagulation 04/07/22 04/08/22 Range/Units 12:33 04:49 PT 24.9 H 30.6 H (12.2-14.9) Sec. INR 1.97 H 2.53 H (0.87-1.13) CBC 04/08/22 Range/Units 04:49 WBC 12.1 H (4.5-11.0) K/mm3 RBC 4.72 (3.65-5.03) M/mm3 Hgb 13.5 (10.1-14.3) gm/dl Hct 43.9 H (30.3-42.9) % Plt Count 205 (140-440) K/mm3 Lymph # (Auto) 1.5 (1.2-5.4) K/mm3 [place] # (Auto) 1.3 H (0.0-0.8) K/mm3 Eos # (Auto) 0.1 (0.0-0.4) K/mm3 Baso # (Auto) 0.0 (0.0-0.1) K/mm3 Comprehensive Metabolic Panel 04/08/22 Range/Units 04:49 Sodium 134 L (137-145) mmol/L Potassium 5.3 H (3.6-5.0) mmol/L Chloride 100.1 (98-107) mmol/L Carbon Dioxide 19 L (22-30) mmol/L BUN 57 H (7-17) mg/dL Creatinine 1.7 H (0.6-1.2) mg/dL Glucose 137 H (65-100) mg/dL Calcium 8.9 (8.4-10.2) mg/dL - Imaging and Cardiology EKG: pending Echo: report reviewed - Telemetry EKG Rhythm: Sinus Rhythm - EKG Sinus rhythms and dysrhythmias: sinus rhythm Ventricular dysrhythmias: ventricular premature com
[2022-04-08] MEDS ORDERED: WARFARIN 2 MG TAB PO NR (17:00)
[2022-04-09] MEDS: CEFEPIME/NS 2 GM/100 ML 2 GM/100 ML BAG IV SCH (05:34)
[2022-04-09] MEDS: INSULIN LISPRO 100 UNIT/ML SUB-Q SCH ×4 (08:39→22:29)
[2022-04-09] MEDS: ENOXAPARIN 100 MG/1 ML INJ SUB-Q SCH (09:30)
[2022-04-09] MEDS: METOPROLOL TARTRATE 25 MG TAB PO SCH ×2 (09:31→22:29)
[2022-04-09] MEDS: PANTOPRAZOLE 40 MG TAB PO SCH (09:31)
[2022-04-09 10:02] LABS: Basophils % (Auto) 0.5 % (0.0-1.8); Eosinophils # (Auto) 0.1 K/mm3 (0.0-0.4); Eosinophils % (Auto) 1.6 % (0.0-4.3); Hemoglobin 14.4 gm/dl (10.1-14.3); Lymphocytes # (Auto) 1.1 K/mm3 (1.2-5.4); Lymphocytes % (Auto) 13.3 % (13.4-35.0); Mean Corpuscular HGB Conc 32 % (30-34); Mean Corpuscular Volume 91 fl (79-97); Monocytes % (Auto) 11.7 % (0.0-7.3); Platelet Count 186 K/mm3 (140-440); Red Blood Count 4.93 M/mm3 (3.65-5.03); Red Cell Distribution Width 16.9 % (13.2-15.2)
[2022-04-09 10:35] LABS: INR 3.81 (0.87-1.13)
[2022-04-09 11:26] LABS: Calcium 9.1 mg/dL (8.4-10.2)
[2022-04-09] MEDS: ACETAMINOPHEN 325 MG TAB PO PRN ×2 (12:05→16:13)
--- NOTE | 2022-04-09 12:33 | Consultation ---
History of Present Illness - Reason for Consult Consult date: 04/09/22 acute renal failure - History of Present Illness This is a 66 year old female who presents to the E.R with a chief complaint of bodyaches and swelling. Patient was found to be in CHF exacerbation. Serum creatinine on admission was 1.0 which coni to 1.5 today. Patient has history of DM, CHF, Hypertension and Seizure. We are being consulted for management of this patient's ARF. Past History Past Medical History: arthritis, diabetes, GERD, heart failure, hypertension, hyperlipidemia, seizures, other (LV thrombus,dementia) Past Surgical History: No surgical history Social history: lives with family Family history: other (unabel to obtain due to mental status) Medications and Allergies Allergies Allergy/AdvReac Type Severity Reaction Status Date / Time No Known Allergies Allergy Verified 03/18/22 16:29 Home Medications Medication Instructions Recorded Confirmed Last Taken Type AtorvaSTATin [Lipitor] 20 mg PO QHS 03/18/22 04/05/22 Unknown History Colchicine 0.6 mg PO QDAY 03/18/22 04/05/22 Unknown History Nitroglycerin [Nitrostat] 0.4 mg SL Q5M PRN 03/18/22 04/05/22 Unknown History Pantoprazole [Protonix TAB] 40 mg PO QDAY 03/18/22 04/05/22 Unknown History Spironolactone [Aldactone] 25 mg PO QDAY 03/18/22 04/05/22 Unknown History glipiZIDE [Glucotrol] 5 mg PO QDAY 03/18/22 04/05/22 Unknown History Furosemide [Lasix TAB] 20 mg PO QDAY #30 tab 03/21/22 04/05/22 Unknown Rx Metoprolol [Lopressor TAB] 12.5 mg PO BID #60 tablet 03/21/22 04/05/22 Unknown Rx Warfarin [Coumadin] 6 mg PO DAILY@1700 #90 tablet 03/21/22 04/05/22 Unknown Rx Active Meds: Active Medications Acetaminophen (Acetaminophen 325 Mg Tab) 650 mg PO Q4H PRN PRN Reason: Pain MILD(1-3)/Fever >100.5/LIM Atorvastatin Calcium (Atorvastatin 20 Mg Tab) 20 mg PO QHS MELVIN Last Admin: 04/08/22 22:30 Dose: 20 mg Dextrose (Dextrose 50% In Water (25gm) 50 Ml Syringe) 0 ml IV Q30MIN PRN; Protocol PRN Reason: Hypoglycemia Insulin Human Lispro (Insulin Lispro 100 Unit/Ml) 0 unit SUB-Q [facility]; Protocol Last Admin: 04/09/22 12:07 Dose: Not Given Magnesium Hydroxide (Magnesium Hydroxide (Mom) Oral Liqd Udc) 30 ml PO Q4H PRN PRN Reason: Constipation Metoprolol Tartrate (Metoprolol Tartrate 25 Mg Tab) 25 mg PO BID [facility] Last Admin: 04/09/22 09:31 Dose: 25 mg Morphine Sulfate (Morphine 2 Mg/1 Ml Inj) 2 mg IV Q4H PRN PRN Reason: Pain, Moderate (4-6) Last Admin: 04/06/22 21:55 Dose: 2 mg Morphine Sulfate (Morphine 4 Mg/1 Ml Inj) 4 mg IV Q4H PRN PRN Reason: Pain , Severe (7-10) Last Admin: 04/05/22 19:48 Dose: 4 mg Ondansetron HCl (Ondansetron 4 Mg/2 Ml Inj) 4 mg IV Q8H PRN PRN Reason: Nausea And Vomiting Pantoprazole Sodium (Pantoprazole 40 Mg Tab) 40 mg PO QDAY [facility] Last Admin: 04/09/22 09:31 Dose: 40 mg Sodium Chloride (Sodium Chloride 0.9% 10 Ml Flush Syringe) 10 ml IV BID [facility] Last Admin: 04/09/22 09:35 Dose: 10 ml Sodium Chloride (Sodium Chloride 0.9% 10 Ml Flush Syringe) 10 ml IV PRN PRN PRN Reason: LINE FLUSH Review of Systems ROS unobtainable: due to mental status Exam - Vital Signs Vital signs: Vital Signs Temp Pulse Resp BP Pulse Ox 97.3 F L 96 H 18 107/74 98 04/04/22 14:58 04/04/22 14:58 04/04/22 14:58 04/04/22 14:58 04/04/22 14:58 - General Appearance General appearance: well-developed, other (NAD) EENT: ATNC Respiratory: Decreased Breath Sounds Heart: S1S2 Gastrointestinal: Present: normoactive bowel sounds Integumentary: warm and dry Neurologic: confused Musculoskeletal: Present: joint swelling, other (has 1+ edema to BLE) Results - Lab Results 04/09/22 09:36 04/09/22 09:36 Most recent lab results Calcium 9.1 mg/dL (8.4-10.2) 04/09/22 09:36 Assessment and Plan Assessment: Acute Renal Failure CHF exacerbation Hyperkalemia Acidosis Hypertension DM Plan: Renal labs reviewed. Serum creatinine 1.5 today, yesterday's was 1.7. Admisison level was 1.0. Aldactone and Lasix now held Abdominal US reviewed- Kidneys: Left simple cyst measuring 3.8 cm noted, otherwise unremarkable for kidneys. Obtain urine lytes, protein and eosinophils Hyperkalemia- Received anti-potassium coctail and Kayexalate Recheck potassium level at 6:30 p.m this evening Start Sodium Bicarbonate 1300 mg po BID Renally dose medications Obtain daily weights Avoid nephrotoxic agents Monitor I/O's daily Monitor renal function closely Plan of care reviewed by Dr. Michaud
[2022-04-09] MEDS ORDERED: CALCIUM GLUCONATE 2,000 MG in SODIUM CHLORIDE 0.9% 100 ML IV ONE (12:56)
[2022-04-09] MEDS ORDERED: SODIUM POLYSTYRENE 15 GM/60 ML ORAL LIQD PO ONE (13:29)
[2022-04-09] MEDS ORDERED: CALC GLUCONATE 1GM/NS 100 ML 1 GM/100 ML BAG IV ONE ×2 (13:30→14:00)
[2022-04-09] MEDS ORDERED: SODIUM POLYSTYRENE 15 GM/60 ML ORAL LIQD PR ONE (13:30)
--- NOTE | 2022-04-09 15:09 | XRay Report ---
ABDOMEN 1 VIEW INDICATION / CLINICAL INFORMATION: ngt placement. COMPARISON: CT abdomen and pelvis with contrast from 04/04/2022. FINDINGS: TUBES / LINES: An NG tube terminates over the gastric body. BOWEL GAS PATTERN: There is mild gaseous distention of the stomach without significant small or large bowel dilatation. FREE AIR / EXTRALUMINAL GAS: None seen. ADDITIONAL FINDINGS: No significant additional findings. IMPRESSION: Satisfactory positioning of the NG tube with nonspecific mild gastric distention. Signer Name: Salomón Dickson MD Signed: 04/09/2022 3:05 PM Workstation Name: [id number]
[2022-04-09] MEDS: SODIUM BICARBONATE 650 MG TAB PO SCH ×2 (16:18→22:28)
[2022-04-09] MEDS ORDERED: WARFARIN NO DOSE TODAY PO ONE (17:00)
--- NOTE | 2022-04-09 17:18 | Progress Note ---
Assessment and Plan Assessment and plan: #Hyperkalemiaworsening Potassium 5.3-->6.0 Status post Kayexalate and calcium gluconate 2 g. Pending repeat potassium level at 1830. NG tube was placed in order to ensure administration of Kayexalate. NG tube can be discontinued if potassium is back within normal limits. #Acute hypoxic respiratory failureresolved #Pneumonia secondary to gram-negative and/or atypical organismsresolved -CT scan shows RML consolidation, continue vancomycin and cefepime, will de- escalate to clinical improvement. Blood cultures NGTD x 96 hours. -patient has no oxygen requirement at home -currently on 2L, will wean as tolerated -Unremarkable COVID PCR and influenza A/B PCR #Acute metabolic encephalopathy-waxing and waning -likely due to illness Unsuccessful attempts at reaching patient's family to obtain more history regarding her baseline #Acute on chronic systolic heart failure -ruled out #LV thrombus with subtherapeutic INR #Subtherapeutic INRresolved -LVEF 10-15%; Continue lifevest upon discharge -BNP less than previous admission; CXR reviewed. Cardiology consulted; appreciate recs. Continue conservative medical management. -continue lasix 40 mg daily, metoprolol tartrate 25 mg twice daily, and spironolactone 25 mg daily -INR at goal (2.53.5). Continue with warfarin 4 mg daily. #Abdominal pain #R paraumbilical hernia #Elevated bilirubin -patient reports excruciating abdominal pain -CT abd/pelvis: shows hepatomegaly and steatosis, hernia containing fat, moderate anasarca and R middle lobe consolidation -abdominal ultrasound (04/07/2022) revealing cholelithiasis and steatosis. #Acute kidney injuryimproving #Lactic acidosis -baseline SCr 1.0 -> 1.4--> 1.7-->1.5. Holding Lasix and Aldactone. Ordered 500 cc bolus to be given over 2 hours. -avoid nephrotoxins and renally dose medications #Mrl-iolyrmv-lahzglahg Type II diabetes mellitus -continue SSI and accuchecks #Disposition -Patient reports living with son Juwan Leon. I called Mr. Leon and left a voicemail. Physical therapy evaluation ordered to help with discharge planning Critical Care Billing: The high probability of a clinically significant, sudden or life threatening deterioration of the [renal] system(s) required my full and direct attention, intervention and personal management. The aggregate critical care time was [60] minutes. This time is in addition to time spent performing reported procedures but includes the following: [x] Data Review and interpretation [x] Patient assessment and monitoring of vital signs [x] Documentation [x] Medication orders and management #Discharge planning - Patient is pending resolution of hyperkalemia - Case management has been made aware. - Discharge is tentatively 24 hours Disposition Plan: Continue medical management Total Time Spent with Patient (Minutes): 45 minutes History Interval history: No acute events overnight. Hospitalist Physical - Constitutional Vitals: Temp Pulse Resp BP Pulse Ox 97.4 F L 89 18 139/99 98 04/09/22 04:16 04/09/22 10:52 04/09/22 10:52 04/09/22 09:31 04/09/22 10:52 General appearance: Present: no acute distress, well-nourished, obese, other (lethargic, AMS) - EENT Eyes: Present: PERRL, EOM intact ENT: hearing intact, clear oral mucosa, dentition normal - Neck Neck: Present: supple, normal ROM - Respiratory Respiratory effort: normal Respiratory: bilateral: diminished - Cardiovascular Rhythm: regular Heart Sounds: Present: S1 & S2 - Extremities Extremities: no ischemia, pulses intact, pulses symmetrical, No edema, normal temperature, normal color Peripheral Pulses: within normal limits - Abdominal General gastrointestinal: soft, non-tender, non-distended, normal bowel sounds - Integumentary Integumentary: Present: clear, warm, dry - Psychiatric Psychiatric: other (Dementia at baseline and fearful) - Neurologic Neurologic: CNII-XII intact, moves all extremities - Allied Health Allied health notes reviewed: nursing Results - Labs CBC & Chem 7: 04/09/22 09:36 04/09/22 09:36 Labs: Laboratory Last Values WBC 8.2 K/mm3 (4.5-11.0) 04/09/22 09:36 RBC 4.93 M/mm3 (3.65-5.03) 04/09/22 09:36 Hgb 14.4 gm/dl (10.1-14.3) H 04/09/22 09:36 Hct 45.0 % (30.3-42.9) H 04/09/22 09:36 MCV 91 fl (79-97) 04/09/22 09:36 MCH 29 pg (28-32) 04/09/22 09:36 MCHC 32 % (30-34) 04/09/22 09:36 RDW 16.9 % (13.2-15.2) H 04/09/22 09:36 Plt Count 186 K/mm3 (140-440) 04/09/22 09:36 Lymph % (Auto) 13.3 % (13.4-35.0) L 04/09/22 09:36 [place] % (Auto) 11.7 % (0.0-7.3) H 04/09/22 09:36 Eos % (Auto) 1.6 % (0.0-4.3) 04/09/22 09:36 Baso % (Auto) 0.5 % (0.0-1.8) 04/09/22 09:36 Lymph # (Auto) 1.1 K/mm3 (1.2-5.4) L 04/09/22 09:36 [place] # (Auto) 1.0 K/mm3 (0.0-0.8) H 04/09/22 09:36 Eos # (Auto) 0.1 K/mm3 (0.0-0.4) 04/09/22 09:36 Baso # (Auto) 0.0 K/mm3 (0.0-0.1) 04/09/22 09:36 Seg Neutrophils % 72.9 % (40.0-70.0) H 04/09/22 09:36 Seg Neutrophils # 6.0 K/mm3 (1.8-7.7) 04/09/22 09:36 PT 42.8 Sec. (12.2-14.9) H 04/09/22 09:36 INR 3.81 (0.87-1.13) H 04/09/22 09:36 Sodium 132 mmol/L (137-145) L 04/09/22 09:36 Potassium 6.0 mmol/L (3.6-5.0) H 04/09/22 09:36 Chloride 100.9 mmol/L (98-107) 04/09/22 09:36 Carbon Dioxide 14 mmol/L (22-30) L 04/09/22 09:36 Anion Gap 23 mmol/L 04/09/22 09:36 BUN 54 mg/dL (7-17) H 04/09/22 09:36 Creatinine 1.5 mg/dL (0.6-1.2) H 04/09/22 09:36 Estimated GFR 42 ml/min 04/09/22 09:36 BUN/Creatinine Ratio 36 % 04/09/22 09:36 Glucose 90 mg/dL (65-100) 04/09/22 09:36 POC Glucose 108 mg/dL (70-105) H 04/09/22 10:36 Lactic Acid 2.10 mmol/L (0.7-2.0) H* 04/05/22 09:59 Calcium 9.1 mg/dL (8.4-10.2) 04/09/22 09:36 Total Bilirubin 2.70 mg/dL (0.1-1.2) H 04/04/22 16:52 AST 24 units/L (5-40) 04/04/22 16:52 ALT 18 units/L (7-56) 04/04/22 16:52 Alkaline Phosphatase 82 units/L (35-129) 04/04/22 16:52 Total Creatine Kinase 50 units/L (30-135) 04/04/22 19:36 C-Reactive Protein 9.60 mg/dL (0.00-1.30) H 04/04/22 16:52 NT-Pro-B Natriuret Pep 3574 pg/mL (0-900) H 04/04/22 22:37 Total Protein 7.6 g/dL (6.3-8.2) 04/04/22 16:52 Albumin 3.6 g/dL (3.9-5) L 04/04/22 16:52 Albumin/Globulin Ratio 0.9 % 04/04/22 16:52 TSH 3.060 mlU/mL (0.270-4.200) 04/04/22 16:52 Free T4 1.31 ng/dL (0.76-1.46) 04/04/22 16:52 Urine Color Yellow (Yellow) 04/05/22 06:02 Urine Turbidity Slightly cloudy (Clear) 04/05/22 06:02 Specific [place] (Man) 1.010 (1.003-1.030) 04/05/22 06:02 Ur Protein (Man) 2+ mg/dL (Negative) 04/05/22 06:02 Ur Ketones (Man) Negative (Negative) 04/05/22 06:02 Ur Nitrite (Man) Negative (Negative) 04/05/22 06:02 Urine Bilirubin (Man) Negative (Negative) 04/05/22 06:02 Leukocyte Esterase (Man) Small (Negative) 04/05/22 06:02 Urine WBC (Auto) 42.0 /HPF (0.0-6.0) H 04/05/22 06:02 Urine RBC (Auto) 24.0 /HPF (0.0-6.0) 04/05/22 06:02 U Epithel Cells (Auto) 5.0 /HPF (0-13.0) 04/05/22 06:02 Urine Bacteria (Auto) 1+ /HPF (Negative) 04/05/22 06:02 Urine RBC (Manual) 3+ (Negative) 04/05/22 06:02 Urine Yeast (Budding) 1+ /HPF 04/05/22 06:02 Vancomycin Trough 25.8 ug/mL (5.0-20.0) H 04/08/22 04:49 Coronavirus (PCR) Negative (Negative) 04/05/22 02:00 Influenza A (Rapid) Negative (Negative) 04/07/22 12:37 Influenza B (Rapid) Negative (Negative) 04/07/22 12:37 Microbiology: Microbiology 04/05/22 02:37 Peripheral/Venous Blood Culture - Preliminary NO GROWTH AFTER 4 DAYS 04/05/22 02:28 Peripheral/Venous Blood Culture - Preliminary NO GROWTH AFTER 4 DAYS Lloyd/IV: Voiding Method Incontinent Active Medications - Current Medications Current Medications: Generic Name Dose Route Start Last Admin Trade Name Freq PRN Reason Stop Dose Admin Acetaminophen 650 mg 04/05/22 03:02 04/09/22 16:13 Acetaminophen 325 Mg Tab PO 650 mg Q4H PRN Administration Pain MILD(1-3)/Fever >100.5/LIM Atorvastatin Calcium 20 mg 04/05/22 22:00 04/08/22 22:30 Atorvastatin 20 Mg Tab PO 20 mg QHS MELVIN Administration Dextrose 0 ml 04/05/22 03:02 Dextrose 50% In Water (25gm) 50 Ml Syringe IV Q30MIN PRN Hypoglycemia Protocol Insulin Human Lispro 0 unit 04/05/22 07:30 04/09/22 12:07 Insulin Lispro 100 Unit/Ml SUB-Q Not Given ACHS [facility] Protocol Magnesium Hydroxide 30 ml 04/05/22 03:02 Magnesium Hydroxide (Mom) Oral Liqd Udc PO Q4H PRN Constipation Metoprolol Tartrate 25 mg 04/07/22 12:00 04/09/22 09:31 Metoprolol Tartrate 25 Mg Tab PO 25 mg BID MELVIN Administration Morphine Sulfate 2 mg 04/05/22 03:02 04/06/22 21:55 Morphine 2 Mg/1 Ml Inj IV 2 mg Q4H PRN Administration Pain, Moderate (4-6) Morphine Sulfate 4 mg 04/05/22 03:02 04/05/22 19:48 Morphine 4 Mg/1 Ml Inj IV 4 mg Q4H PRN Administration Pain , Severe (7-10) Ondansetron HCl 4 mg 04/05/22 03:02 Ondansetron 4 Mg/2 Ml Inj IV Q8H PRN Nausea And Vomiting Pantoprazole Sodium 40 mg 04/05/22 12:00 04/09/22 09:31 Pantoprazole 40 Mg Tab PO 40 mg QDAY MELVIN Administration Sodium Bicarbonate 1,300 mg 04/09/22 15:00 04/09/22 16:18 Sodium Bicarbonate 650 Mg Tab PO 1,300 mg BID MELVIN Administration Sodium Chloride 10 ml 04/05/22 10:00 04/09/22 09:35 Sodium Chloride 0.9% 10 Ml Flush Syringe IV 10 ml BID MELVIN Administration Sodium Chloride 10 ml 04/05/22 03:02 Sodium Chloride 0.9% 10 Ml Flush Syringe IV PRN PRN LINE FLUSH Nutrition/Malnutrition Assess - Dietary Evaluation Nutrition/Malnutrition Findings: Nutrition Notes Start: 04/05/22 11:49 Freq: Status: Active Protocol: Document 04/06/22 16:39 HARDY (Rec: 04/06/22 17:06 HARDY [id number]) Nutrition Notes Initial or Follow up Reassessment Current Diagnosis Diabetes,Hypertension,Heart Failure,Respiratory Failure, Hyperlipidemia Other Pertinent Diagnosis Seizure, GERD, COVID-19, Pneumonia, Metabolic Encephalopathy, ... Current Diet Cardiac/Consistent Carbohydrates Diet+ D Suppl ( since B 04/05). Labs/Tests 04/06: Na 135 K 5.2 CO2 19 BUN 38 Cr 1.4 Pertinent Medications 04/06: Atorvastatin Lasix Warfarin/Coumadin Height 5 ft 2 in Weight 90.718 kg [place] Body Weight (kg) 50.00 BMI 36.6 Weight change and time frame No body weight loss reported in 2 days. Weight Status Obese Subjective/Other Information RD consult for difficulty chewing, and dietary supplementation assessments. Pt's PO intake of meals has been Poor (<50%) according to ADL notes. I will prescribe dietary supplements to compensate for poor or insufficient PO intake of meals during LOS. Pt is on Nasal Cannula, O2 saturation @ 95%, according to Physical Assessment History notes. Pt complains of abdominal pain , according to Physical Assessment History notes. Pt presents bilateral-LE Edema , according to Progress notes. Pt lives with family, according to Progress notes. There are no reports available regading difficulty chewing on the chart at the time, I will disregard this consult. Percent of energy/protein needs met: Prescribed Cardiac/Consistent Carbohydrates Diet provides for energy/protein needs (1, 977 Kcal/86 g) during LOS; additionally, Dietary Supplements will compensate for possible poor or insufficient PO intake of meals with 440 Kcal and 20 g of protein. Burn Absent Trauma Absent GI Symptoms Other Food Allergy No Skin Integrity/Comment Assessment WNL. Current % PO Negligible Minimum of two criteria No Fluid Accumulation N/A Reduced Contract Consultant Strength N/A (non-severe) Protein-Calorie Malnutrition N\A #2 Nutrition Diagnosis Overweight/obesity Etiology Possibly secondary to lifestyle. As Evidenced by Signs and Symptoms BMI: 36.6 Kg/m2. #1 Nutrition Diagnosis Inadequate protein-energy intake Diagnosis Progress(for reassessment Continues documentation) Is patient on ventilator? No Is Patient Ambulatory and/or Out of Bed Yes REE-([facility]-ambulatory/OOB) [ 1814.059 [id number]] Kcal/Kg value to use for calculation 14 Approximate Energy Requirements Using 1270 kcal/Kg Calculation Used for Recommendations Kcal/kg Additional Notes Protein: 0.8-1.2 g/Kg AdjBW; 56-84 g/day. Fluids: 1-1.5 L/day, or as per MD. Nutrition Intervention Change Diet Order: Continue Cardiac/Consistent Carbohydrates Diet as tolerated. Add Supplement/Snack (indicate name/kcal Start 8 fl oz Glucertna; BID. /protein ) Provides kCal: 440 Provides Protein (gm) 20 Goal #1 Compensate, through dietary supplementation, for possible poor or insufficient PO intake of meals during LOS. Goal #2 Adjust the dietary intervention to better serve Pt's energy/protein needs and clinical conditions during LOS . Follow-Up By: 04/13/22 Additional Comments Continue monitoring food tolerance, %PO intake of meals , dietary supplements, and BM.
--- NOTE | 2022-04-10 09:43 | Progress Note ---
Assessment and Plan Acute Renal Failure CHF exacerbation Hyperkalemia Acidosis Hypertension DM Plan: STAT BMP ordered this AM, repeated BMP after hyperkalemia therapy was not done as ordered yesterday, no documentation in chart why it was not done, will discuss with RN. no UOP was recorded, bladder scan ordered Abdominal US reviewed- Kidneys: Left simple cyst measuring 3.8 cm noted, otherwise unremarkable for kidneys. Obtain urine lytes, protein and eosinophils cont Sodium Bicarbonate 1300 mg po BID Renally dose medications Obtain daily weights Avoid nephrotoxic agents Monitor I/O's daily Monitor renal function closely Subjective Date of service: 04/10/22 Principal diagnosis: Generalized pain, AMS Interval history: denies acute issues. Objective - Vital Signs Vital signs: Vital Signs - 12hr 04/09/22 04/09/22 04/09/22 22:00 22:01 22:29 Temperature 97.5 F L Pulse Rate 87 87 Respiratory 20 18 Rate Blood Pressure 104/53 104/53 O2 Sat by Pulse 98 95 Oximetry 04/10/22 04/10/22 03:36 03:37 Temperature 98.0 F Pulse Rate 99 H Respiratory 18 18 Rate Blood Pressure 106/62 O2 Sat by Pulse 99 Oximetry - Lab 04/09/22 09:36 04/09/22 09:36 Most recent lab results Calcium 9.1 mg/dL (8.4-10.2) 04/09/22 09:36 Medications & Allergies - Medications Allergies/Adverse Reactions: Allergies No Known Allergies Allergy (Verified 03/18/22 16:29) Home Medications: Home Medications Medication Instructions Recorded Confirmed Last Taken Type AtorvaSTATin [Lipitor] 20 mg PO QHS 03/18/22 04/05/22 Unknown History Colchicine 0.6 mg PO QDAY 03/18/22 04/05/22 Unknown History Nitroglycerin [Nitrostat] 0.4 mg SL Q5M PRN 03/18/22 04/05/22 Unknown History Pantoprazole [Protonix TAB] 40 mg PO QDAY 03/18/22 04/05/22 Unknown History Spironolactone [Aldactone] 25 mg PO QDAY 03/18/22 04/05/22 Unknown History glipiZIDE [Glucotrol] 5 mg PO QDAY 03/18/22 04/05/22 Unknown History Furosemide [Lasix TAB] 20 mg PO QDAY #30 tab 03/21/22 04/05/22 Unknown Rx Metoprolol [Lopressor TAB] 12.5 mg PO BID #60 tablet 03/21/22 04/05/22 Unknown Rx Warfarin [Coumadin] 6 mg PO DAILY@1700 #90 tablet 03/21/22 04/05/22 Unknown Rx Active Medications: Generic Name Dose Route Start Last Admin Trade Name Freq PRN Reason Stop Dose Admin Acetaminophen 650 mg 04/05/22 03:02 04/09/22 16:13 Acetaminophen 325 Mg Tab PO 650 mg Q4H PRN Administration Pain MILD(1-3)/Fever >100.5/LIM Atorvastatin Calcium 20 mg 04/05/22 22:00 04/09/22 22:28 Atorvastatin 20 Mg Tab PO 20 mg QHS MELVIN Administration Dextrose 0 ml 04/05/22 03:02 Dextrose 50% In Water (25gm) 50 Ml Syringe IV Q30MIN PRN Hypoglycemia Protocol Insulin Human Lispro 0 unit 04/05/22 07:30 04/09/22 22:29 Insulin Lispro 100 Unit/Ml SUB-Q Not Given ACHS MELVIN Protocol Magnesium Hydroxide 30 ml 04/05/22 03:02 Magnesium Hydroxide (Mom) Oral Liqd Udc PO Q4H PRN Constipation Metoprolol Tartrate 25 mg 04/07/22 12:00 04/09/22 22:29 Metoprolol Tartrate 25 Mg Tab PO Not Given BID MELVIN Morphine Sulfate 2 mg 04/05/22 03:02 04/06/22 21:55 Morphine 2 Mg/1 Ml Inj IV 2 mg Q4H PRN Administration Pain, Moderate (4-6) Morphine Sulfate 4 mg 04/05/22 03:02 04/05/22 19:48 Morphine 4 Mg/1 Ml Inj IV 4 mg Q4H PRN Administration Pain , Severe (7-10) Ondansetron HCl 4 mg 04/05/22 03:02 Ondansetron 4 Mg/2 Ml Inj IV Q8H PRN Nausea And Vomiting Pantoprazole Sodium 40 mg 04/05/22 12:00 04/09/22 09:31 Pantoprazole 40 Mg Tab PO 40 mg QDAY MELVIN Administration Sodium Bicarbonate 1,300 mg 04/09/22 15:00 04/09/22 22:28 Sodium Bicarbonate 650 Mg Tab PO 1,300 mg BID MELVIN Administration Sodium Chloride 10 ml 04/05/22 10:00 04/09/22 22:28 Sodium Chloride 0.9% 10 Ml Flush Syringe IV 10 ml BID MELVIN Administration Sodium Chloride 10 ml 04/05/22 03:02 Sodium Chloride 0.9% 10 Ml Flush Syringe IV PRN PRN LINE FLUSH
--- NOTE | 2022-04-10 10:23 | Electrocardiograph Report ---
Test Date: 2022-04-09 Test Time: 13:46:19 Pat Name: CJ GARCÍA Department: Room: A365 1 Gender: F Manager Books: VARSHA : 1955 Requested By: JUWAN KEYS Order Number: [id number] Reading MD: Bud Neff Measurements Intervals [place] Rate: 94 P: 67 ID: [id number] QRS: -63 QRSD: 86 T: 79 QT: 363 QTc: 454 Interpretive Statements Sinus rhythm Paired ventricular premature complexes Inferior infarct, old Probable anterior infarct, old Compared to ECG 03/18/2022 07:13:07 ST (T wave) deviation no longer present Myocardial infarct finding still present Electronically Signed On 04-10-2022 10:23:17 EDT by Bud Neff
[2022-04-10 13:48] LABS: Basophils % (Auto) 0.4 % (0.0-1.8); Eosinophils # (Auto) 0.1 K/mm3 (0.0-0.4); Eosinophils % (Auto) 0.9 % (0.0-4.3); Hematocrit 41.5 % (30.3-42.9); Hemoglobin 13.3 gm/dl (10.1-14.3); Lymphocytes # (Auto) 1.3 K/mm3 (1.2-5.4); Lymphocytes % (Auto) 15.4 % (13.4-35.0); Mean Corpuscular HGB Conc 32 % (30-34); Mean Corpuscular Volume 91 fl (79-97); Monocytes # (Auto) 1.3 K/mm3 (0.0-0.8); Monocytes % (Auto) 15.6 % (0.0-7.3); Platelet Count 215 K/mm3 (140-440); Red Blood Count 4.57 M/mm3 (3.65-5.03); Red Cell Distribution Width 16.6 % (13.2-15.2)
[2022-04-10 13:58] LABS: Calcium 9.2 mg/dL (8.4-10.2)
[2022-04-10 14:50] LABS: Creatinine,Urine 86.4 mg/dL (0.1-20.0)
[2022-04-10 14:50] LABS: INR 3.28 (0.87-1.13)
--- NOTE | 2022-04-10 15:00 | Discharge Summary ---
Providers - Providers Date of Admission: 04/05/22 03:02 Date of discharge: 04/10/22 Attending physician: JUWAN KEYS MD 04/05/22 03:03 Consult to Dietitian/Nutrition [CONS] Routine Physician Instructions: education about fluid and fluid restriction Reason For Exam: Reason for Consult: Diet education 04/06/22 07:40 Midline [Consult to PICC Line RN] [CONS] Routine Reason For Exam: difficult stick Type Line:: Midline 04/06/22 11:09 Consult to Physician [CONS] Routine Comment: Consulting Provider: DENISE NOLASCO Physician Instructions: Reason For Exam: CHF exacerbation 04/06/22 11:56 Physical Therapy Evaluation and Treat [CONS] Routine Comment: Reason For Exam: debility 04/08/22 12:43 Consult to Physician [CONS] Routine Comment: Consulting Provider: AFRICA GARCIAS Physician Instructions: Reason For Exam: CAROL worsening Primary care physician: CANDY SUPERVISOR Hospitalization Reason for admission: Systolic heart failureruled out, hypoxic respiratory failure, pneumonia Condition: Stable Pertinent studies: Reviewed. Procedures: None. Hospital course: Patient is a 66-year-old female past medical history of HFrEF, LV thrombus on echo, hypertension, diabetes, history of seizures, dementia, obesity who pres ents to the ED with a complaint of generalized body pain. History is taken from chart due to patient's mental status at time of interview. Patient however did indicate she was having pain in her legs and abdomen. Per documentation patient symptoms have been going on for last 3 days. Unclear if patient has been compliant with medications. In the ED patient's labs showed to have elevated lactic acid, elevated BNP, CXR read as CHF however CT of abdomen suggests suspicious for pneumonia. Patient apparently follows with [facility] however was seen previously by our group during recent admission February. Cardiology is consulted for CHF. Patient was ruled out for acute on chronic systolic heart failure, and she was found to be subtherapeutic with her INR. The patient has since been bridged and is currently at goal. On presentation, the patient had acute hypoxic respiratory failure that is since resolved. Patient has completed antibiotics for management of community-acquired pneumonia. Patient has been medically managed in regards to her CAROL and lactic acidosis secondary to vasomotor nephropathy. Lastly, the patient's hyperkalemia has been medically managed, and her potassium is now within normal limits. Patient is medically clear for discharge. Disposition: 01 HOME / SELF CARE / HOMELESS Final Discharge Diagnosis (Prints w/discharge instructions): Acute on chronic systolic heart failureruled out, acute hypoxic respiratory failure, pneumonia secondary to gram-negative and/or atypical organisms, acute metabolic encephalop athy, LV thrombus with subtherapeutic INR, right periumbilical hernia, hyperbilirubinemia, CAROL secondary to vasomotor nephropathy, lactic acidosis, noninsulin-dependent type 2 diabetes mellitus, morbid obesity. Time spent for discharge: 45 min Core Measure Documentation - Palliative Care Palliative Care/ Comfort Measures: Not Applicable - Core Measures Any of the following diagnoses?: history only Exam - Constitutional Vitals: Temp Pulse Resp BP Pulse Ox 97.6 F 54 L 20 105/72 96 04/10/22 12:21 04/10/22 12:21 04/10/22 12:21 04/10/22 12:21 04/10/22 12:21 General appearance: Present: no acute distress, well-nourished, obese - EENT Eyes: Present: PERRL, EOM intact ENT: hearing intact, clear oral mucosa - Neck Neck: Present: supple, normal ROM - Respiratory Respiratory effort: normal Respiratory: bilateral: CTA - Cardiovascular Rhythm: regular Heart Sounds: Present: S1 & S2 - Extremities Extremities: no ischemia, pulses intact, pulses symmetrical, No edema, normal temperature, normal color Peripheral Pulses: within normal limits - Abdominal General gastrointestinal: Present: soft, non-tender, non-distended, normal bowel sounds, hernia (Periumbilical hernia) Female genitourinary: Present: deferred - Rectal Rectal Exam: deferred - Integumentary Integumentary: Present: clear, warm, dry - Musculoskeletal Musculoskeletal: strength equal bilaterally - Psychiatric Psychiatric: agitated, other (Extremely frightened) - Neurologic Neurologic: CNII-XII intact, other (Alert and oriented x2) - Allied Health Allied health notes reviewed: nursing Plan Activity: advance as tolerated Diet: low salt, diabetic Special Instructions: restrict fluid intake to (2 L/day) Additional Instructions: Patient is a 66-year-old female past medical history of HFrEF, LV thrombus on echo, hypertension, diabetes, history of seizures, dementia, obesity who presents to the ED with a complaint of generalized body pain. History is taken from chart due to patient's mental status at time of interview. Patient however did indicate she was having pain in her legs and abdomen. Per documentation patient symptoms have been going on for last 3 days. Unclear if patient has been compliant with medications. In the ED patient's labs showed to have elevated lactic acid, elevated BNP, CXR read as CHF however CT of abdomen suggests suspicious for pneumonia. Patient apparently follows with [facility] however was seen previously by our group during recent admission February. Cardiology is consulted for CHF. Patient was ruled out for acute on chronic systolic heart failure, and she was found to be subtherapeutic with her INR. The patient has since been bridged and is currently at goal. On presentation, the patient had acute hypoxic respiratory failure that is since resolved. Patient has completed antibiotics for management of community- acquired pneumonia. Patient has been medically managed in regards to her CAROL and lactic acidosis secondary to vasomotor nephropathy. Lastly, the patient's hyperkalemia has been medically managed, and her potassium is now within normal limits. Patient is medically clear for discharge. Care Plan Goals: Patient is medically clear for discharge. Assessment: Patient is a 66-year-old female past medical history of HFrEF, LV thrombus on echo, hypertension, diabetes, history of seizures, dementia, obesity who presents to the ED with a complaint of generalized body pain. History is taken from chart due to patient's mental status at time of interview. Patient however did indicate she was having pain in her legs and abdomen. Per documentation patient symptoms have been going on for last 3 days. Unclear if patient has been compliant with medications. In the ED patient's labs showed to have elevated lactic acid, elevated BNP, CXR read as CHF however CT of abdomen suggests suspicious for pneumonia. Patient apparently follows with [facility] however was seen previously by our group during recent admission February. Cardiology is consulted for CHF. Patient was ruled out for acute on chronic systolic heart failure, and she was found to be subtherapeutic with her INR. The patient has since been bridged and is currently at goal. On presentation, the patient had acute hypoxic respiratory failure that is since resolved. Patient has completed antibiotics for management of community-acquired pneumonia. Patient has been medically managed in regards to her CAROL and lactic acidosis secondary to vasomotor nephropathy. Lastly, the patient's hyperkalemia has been medically managed, and her potassium is now within normal limits. Patient is medically clear for discharge. Follow up with: PRIMARY CARE, [Primary Care Provider] - 3-5 Days Forms: Warfarin Discharge Instruction Prescriptions: Warfarin [Coumadin] 3 mg PO DAILY@1700 #30 tablet
[2022-04-10] MEDS ORDERED: WARFARIN 1 MG TAB PO NR (17:00)
[2022-04-10] MEDS ORDERED: WARFARIN 2.5 MG TAB PO NR (17:00)
[2022-04-10 18:19] VITALS: BP 110/69
== END 2022-04-10 19:15 | disposition home or self-care (01) | DRG 177 ==
LOC: ED 14:54 → 3A 04-05 03:02
PROVIDERS: ADMIT Internal Medicine Geriatric Medicine; ATTEND Student in an Organized Health Care Education/Training Program
DX: J15.6 Pneumonia due to other Gram-negative bacteria (principal); G93.41 Metabolic encephalopathy; J96.01 Acute respiratory failure with hypoxia; N17.0 Acute kidney failure with tubular necrosis; E87.2 Acidosis; F01.51 Vascular dementia, unspecified severity, with behavioral disturbance; I24.0 Acute coronary thrombosis not resulting in myocardial infarction; Z20.822 Contact with and (suspected) exposure to COVID-19; M79.10 Myalgia, unspecified site; K42.9 Umbilical hernia without obstruction or gangrene; E11.9 Type 2 diabetes mellitus without complications; K21.9 Gastro-esophageal reflux disease without esophagitis; M19.90 Unspecified osteoarthritis, unspecified site; G40.909 Epilepsy, unspecified, not intractable, without status epilepticus; E66.9 Obesity, unspecified; E87.5 Hyperkalemia; I10 Essential (primary) hypertension; Z68.36 Body mass index [BMI] 36.0-36.9, adult; Z79.01 Long term (current) use of anticoagulants
CPT/HCPCS: 36415; 71045; 74018; 74177; 76700; 80048; 80053; 80202; 81001; 82140; 82550; 82570; 82962; 83880; 84100; 84156; 84300; 84439; 84443; 85025; 85610; 86140; 87040; 87086; 87400; 87449; 89050; 93005; 96365; 96366; 96375; 99285; G0378; Q9967; J0610; J0692; J1650; J1815; J1940; J2060; J2270; J3370; J7030; J7040; J7050; U0003

== ENCOUNTER 2022-04-16 11:49 | Inpatient (IN) | payer MEDICARE, MEDICAID ==
--- NOTE | 2022-04-16 13:12 | XRay Report ---
CHEST 1 VIEW 04/16/2022 12:42 PM INDICATION / CLINICAL INFORMATION: sob. COMPARISON: 04/04/2022 FINDINGS: SUPPORT DEVICES: None. HEART / MEDIASTINUM: Stable cardiomegaly. LUNGS / PLEURA: Unchanged interstitial prominence with layering small right pleural effusion and isabella cent opacities. Suspect small left pleural effusion as well. No pneumothorax. ADDITIONAL FINDINGS: No significant additional findings. IMPRESSION: 1. Similar small right pleural effusion with adjacent opacities. 2. Suspect small left pleural effusion. Signer Name: Wesley Smith MD Signed: 04/16/2022 1:08 PM Workstation Name: [id number]
--- NOTE | 2022-04-16 13:31 | Cat Scan Report ---
CT HEAD WITHOUT CONTRAST INDICATION / CLINICAL INFORMATION: dunn. TECHNIQUE: All CT scans at this location are performed using CT dose reduction for ALARA by means of automated exposure control. COMPARISON: CT from 03/17/2022 FINDINGS: BRAIN PARENCHYMA: No acute intracranial hemorrhage. No evidence of recent infarct. No mass effect or midline shift. Mild chronic small vessel ischemic changes. 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 VENTRICULAR SYSTEM/EXTRA-AXIAL SPACES: Age-related cerebral atrophy. No extra-axial fluid collection. ORBITS: Normal as visualized. SKELETAL SYSTEM/SOFT TISSUES: Normal bones and soft tissues. PARANASAL SINUSES/MASTOID AIR CELLS: No significant abnormality. ADDITIONAL FINDINGS: None. IMPRESSION: 1. No acute intracranial abnormality. Signer Name: Clemente Manuel MD Signed: 04/16/2022 1:26 PM Workstation Name: [id number]
--- NOTE | 2022-04-16 13:49 | Emergency Department Report ---
ED Altered Mental Status HPI - General Chief Complaint: Altered Mental Status Stated Complaint: WEAKNESS Time Seen by Provider: 04/16/22 12:22 Source: patient, EMS Mode of arrival: Wheelchair Limitations: Altered Mental Status - History of Present Illness Initial Comments: 66-year-old -[place] female, with multiple medical problems, including congestive heart failure, reportedly was confused this morning patient denies having any head trauma.. -: Sudden, hour(s) Associated Symptoms: denies other symptoms - Related Data Home Medications Medication Instructions Recorded Confirmed Last Taken AtorvaSTATin [Lipitor] 20 mg PO QHS 03/18/22 04/05/22 Unknown Colchicine 0.6 mg PO QDAY 03/18/22 04/05/22 Unknown Nitroglycerin [Nitrostat] 0.4 mg SL Q5M PRN 03/18/22 04/05/22 Unknown Pantoprazole [Protonix TAB] 40 mg PO QDAY 03/18/22 04/05/22 Unknown glipiZIDE [Glucotrol] 5 mg PO QDAY 03/18/22 04/05/22 Unknown Previous Rx's Medication Instructions Recorded Last Taken Type Furosemide [Lasix TAB] 20 mg PO QDAY #30 tab 03/21/22 Unknown Rx Metoprolol [Lopressor TAB] 12.5 mg PO BID #60 tablet 03/21/22 Unknown Rx Warfarin [Coumadin] 2.5 mg PO DAILY@1700 #30 tablet 04/10/22 Unknown Rx Allergies Allergy/AdvReac Type Severity Reaction Status Date / Time No Known Allergies Allergy Verified 03/18/22 16:29 ED Review of Systems ROS: Stated complaint: WEAKNESS Other details as noted in HPI Constitutional: denies: chills, fever Eyes: denies: eye pain, eye discharge, vision change ENT: denies: ear pain, throat pain Respiratory: denies: cough, shortness of breath, wheezing Cardiovascular: denies: chest pain, palpitations Endocrine: no symptoms reported Gastrointestinal: denies: abdominal pain, nausea, diarrhea Genitourinary: denies: urgency, dysuria, discharge Musculoskeletal: denies: back pain, joint swelling, arthralgia Skin: denies: rash, lesions Neurological: denies: headache, weakness, paresthesias Psychiatric: denies: anxiety, depression Hematological/Lymphatic: denies: easy bleeding, easy bruising ED Past Medical Hx - Past Medical History Hx Hypertension: Yes Hx Congestive Heart Failure: Yes Hx Diabetes: Yes Hx GERD: Yes Hx Renal Disease: Yes Hx Arthritis: Yes Hx Seizures: Yes - Social History Smoking Status: Never Smoker - Medications Home Medications: Home Medications Medication Instructions Recorded Confirmed Last Taken Type AtorvaSTATin [Lipitor] 20 mg PO QHS 03/18/22 04/05/22 Unknown History Colchicine 0.6 mg PO QDAY 03/18/22 04/05/22 Unknown History Nitroglycerin [Nitrostat] 0.4 mg SL Q5M PRN 03/18/22 04/05/22 Unknown History Pantoprazole [Protonix TAB] 40 mg PO QDAY 03/18/22 04/05/22 Unknown History glipiZIDE [Glucotrol] 5 mg PO QDAY 03/18/22 04/05/22 Unknown History Furosemide [Lasix TAB] 20 mg PO QDAY #30 tab 03/21/22 04/05/22 Unknown Rx Metoprolol [Lopressor TAB] 12.5 mg PO BID #60 tablet 03/21/22 04/05/22 Unknown Rx Warfarin [Coumadin] 2.5 mg PO DAILY@1700 #30 tablet 04/10/22 Unknown Rx ED Physical Exam - General Limitations: Altered Mental Status General appearance: alert, in no apparent distress - Head Head exam: Present: atraumatic, normocephalic - Eye Eye exam: Present: normal appearance, PERRL - ENT ENT exam: Present: normal exam, mucous membranes moist - Neck Neck exam: Present: normal inspection - Respiratory Respiratory exam: Present: normal lung sounds bilaterally. Absent: respiratory distress - Cardiovascular Cardiovascular Exam: Present: regular rate, normal rhythm. Absent: systolic murmur, diastolic murmur, rubs, gallop - GI/Abdominal GI/Abdominal exam: Present: soft, normal bowel sounds. Absent: distended, tenderness, guarding - Extremities Exam Extremities exam: Present: normal inspection, full ROM - Back Exam Back exam: Present: normal inspection - Neurological Exam Neurological exam: Present: alert, altered, CN II-XII intact. Absent: motor sensory deficit - Psychiatric Psychiatric exam: Present: anxious - Skin Skin exam: Present: warm, dry, intact, normal color. Absent: rash ED Course Vital Signs 04/16/22 04/16/22 04/16/22 11:52 12:28 12:30 Temperature Pulse Rate 102 H 104 H Respiratory 18 22 Rate Blood Pressure 113/81 Blood Pressure 112/72 [Left] O2 Sat by Pulse 96 100 100 Oximetry 04/16/22 04/16/22 04/16/22 12:45 12:56 13:00 Temperature Pulse Rate 100 H 74 109 H Respiratory 20 18 20 Rate Blood Pressure 107/74 113/81 Blood Pressure 125/66 [Left] O2 Sat by Pulse 96 99 Oximetry 04/16/22 04/16/22 04/16/22 13:15 13:31 13:41 Temperature Pulse Rate 85 Respiratory 18 Rate Blood Pressure 104/78 104/78 Blood Pressure 104/65 [Left] O2 Sat by Pulse 100 100 99 Oximetry 04/16/22 04/16/22 04/16/22 13:45 14:01 14:15 Temperature Pulse Rate 101 H 108 H 103 H Respiratory 31 H 22 17 Rate Blood Pressure 104/78 104/78 116/92 Blood Pressure [Left] O2 Sat by Pulse 92 Oximetry 04/16/22 04/16/22 04/16/22 14:31 14:45 15:01 Temperature Pulse Rate 108 H 102 H 92 H Respiratory 14 17 15 Rate Blood Pressure 109/82 103/80 97/56 Blood Pressure [Left] O2 Sat by Pulse Oximetry 04/16/22 04/16/22 04/16/22 15:15 15:31 15:45 Temperature Pulse Rate 102 H 101 H 97 H Respiratory 20 20 16 Rate Blood Pressure 94/63 91/70 97/59 Blood Pressure [Left] O2 Sat by Pulse Oximetry 04/16/22 04/16/22 04/16/22 15:46 16:01 16:15 Temperature Pulse Rate 68 101 H 97 H Respiratory 18 13 13 Rate Blood Pressure 80/58 80/58 Blood Pressure 98/61 [Left] O2 Sat by Pulse 99 100 89 Oximetry 04/16/22 04/16/22 04/16/22 16:31 16:45 17:00 Temperature Pulse Rate 99 H 100 H 100 H Respiratory 22 17 18 Rate Blood Pressure 80/58 80/58 Blood Pressure 100/68 [Left] O2 Sat by Pulse 100 96 99 Oximetry 04/16/22 04/16/22 04/16/22 17:01 17:15 17:29 Temperature Pulse Rate 109 H 101 H 87 Respiratory 15 17 18 Rate Blood Pressure 100/68 75/55 Blood Pressure 98/64 [Left] O2 Sat by Pulse 99 92 99 Oximetry 04/16/22 04/16/22 04/16/22 17:31 17:45 17:51 Temperature Pulse Rate 95 H 98 H 78 Respiratory 14 14 18 Rate Blood Pressure 95/64 95/64 Blood Pressure 107/65 [Left] O2 Sat by Pulse 98 96 99 Oximetry 04/16/22 04/16/22 04/16/22 18:01 18:15 18:30 Temperature Pulse Rate 100 H 94 H 94 H Respiratory 14 18 17 Rate Blood Pressure 115/86 125/73 82/53 Blood Pressure [Left] O2 Sat by Pulse 100 95 Oximetry 04/16/22 04/16/22 04/16/22 18:45 19:01 19:15 Temperature Pulse Rate 100 H 98 H 96 H Respiratory 14 13 21 Rate Blood Pressure 90/62 93/70 100/77 Blood Pressure [Left] O2 Sat by Pulse 82 L 90 95 Oximetry 04/16/22 04/16/22 04/16/22 19:31 19:45 19:53 Temperature Pulse Rate 99 H 101 H Respiratory 14 15 15 Rate Blood Pressure 101/70 78/42 Blood Pressure [Left] O2 Sat by Pulse 90 86 95 Oximetry 04/16/22 04/16/22 04/16/22 19:55 20:01 20:11 Temperature Pulse Rate 99 H 100 H 101 H Respiratory 16 14 13 Rate Blood Pressure 78/42 125/69 125/69 Blood Pressure 101/70 [Left] O2 Sat by Pulse 91 82 L 84 Oximetry 04/16/22 04/16/22 04/16/22 20:13 20:21 20:31 Temperature Pulse Rate 106 H 104 H Respiratory 12 15 Rate Blood Pressure 156/125 90/53 Blood Pressure [Left] O2 Sat by Pulse 95 92 100 Oximetry 04/16/22 04/16/22 04/16/22 20:41 20:51 21:00 Temperature Pulse Rate 98 H 98 H 80 Respiratory 16 19 Rate Blood Pressure 90/53 104/42 Blood Pressure 122/75 [Left] O2 Sat by Pulse 86 89 Oximetry 04/16/22 04/16/22 04/16/22 21:01 21:11 21:21 Temperature Pulse Rate 97 H 97 H 99 H Respiratory 18 15 15 Rate Blood Pressure 94/64 94/64 98/55 Blood Pressure [Left] O2 Sat by Pulse 95 98 88 Oximetry 04/16/22 04/16/22 04/16/22 21:31 21:41 21:51 Temperature Pulse Rate 99 H 99 H 103 H Respiratory 11 L 18 12 Rate Blood Pressure 105/73 99/70 99/70 Blood Pressure [Left] O2 Sat by Pulse 92 88 84 Oximetry 04/16/22 04/16/22 04/16/22 22:01 22:11 22:21 Temperature Pulse Rate 102 H 99 H 100 H Respiratory 11 L 18 21 Rate Blood Pressure 73/44 152/105 152/105 Blood Pressure [Left] O2 Sat by Pulse 94 96 86 Oximetry 04/16/22 04/16/22 04/16/22 22:31 22:41 22:51 Temperature Pulse Rate 101 H 103 H 100 H Respiratory 13 18 22 Rate Blood Pressure 112/96 98/74 98/74 Blood Pressure [Left] O2 Sat by Pulse 98 75 L 100 Oximetry 04/16/22 04/16/22 04/16/22 23:01 23:11 23:21 Temperature Pulse Rate 96 H 99 H 90 Respiratory 17 15 26 H Rate Blood Pressure 131/112 131/112 131/112 Blood Pressure [Left] O2 Sat by Pulse 96 97 100 Oximetry 04/16/22 04/16/22 04/16/22 23:30 23:41 23:51 Temperature Pulse Rate 96 H 98 H 98 H Respiratory 14 16 19 Rate Blood Pressure 99/70 102/84 102/84 Blood Pressure [Left] O2 Sat by Pulse 98 98 100 Oximetry 04/17/22 04/17/22 04/17/22 00:01 00:11 00:21 Temperature Pulse Rate 100 H 100 H 100 H Respiratory 19 23 25 H Rate Blood Pressure 131/112 131/112 126/69 Blood Pressure [Left] O2 Sat by Pulse 100 100 100 Oximetry 04/17/22 04/17/22 04/17/22 00:31 00:41 00:50 Temperature Pulse Rate 100 H 100 H 96 H Respiratory 19 26 H 19 Rate Blood Pressure 126/69 106/78 126/69 Blood Pressure [Left] O2 Sat by Pulse 64 L 100 67 L Oximetry 04/17/22 04/17/22 04/17/22 01:01 01:11 01:20 Temperature Pulse Rate 98 H 98 H 106 H Respiratory 14 16 19 Rate Blood Pressure 126/69 123/60 123/60 Blood Pressure [Left] O2 Sat by Pulse 100 100 96 Oximetry 04/17/22 04/17/22 04/17/22 01:46 01:49 01:50 Temperature 97.7 F Pulse Rate 57 L 106 H 72 Respiratory 19 15 Rate Blood Pressure 130/53 Blood Pressure 120/56 [Left] O2 Sat by Pulse 82 L 98 Oximetry - Lab Data Result diagrams: 04/17/22 19:42 04/17/22 05:18 Lab Results 04/16/22 04/16/22 04/16/22 Range/Units 13:37 13:47 17:01 WBC 8.3 (4.5-11.0) K/mm3 RBC 5.83 H (3.65-5.03) M/mm3 Hgb 16.8 H (10.1-14.3) gm/dl Hct 53.0 H (30.3-42.9) % MCV 91 (79-97) fl MCH 29 (28-32) pg MCHC 32 (30-34) % RDW 17.4 H (13.2-15.2) % Plt Count 214 (140-440) K/mm3 Lymph % (Auto) Business Intelligence Developer Pershing % (Auto) Business Intelligence Developer Eos % (Auto) Business Intelligence Developer Baso % (Auto) Business Intelligence Developer Lymph # (Auto) Business Intelligence Developer Pershing # (Auto) Business Intelligence Developer Eos # (Auto) Business Intelligence Developer Baso # (Auto) Business Intelligence Developer Seg Neutrophils % Business Intelligence Developer Seg Neutrophils # Business Intelligence Developer POC Glucose 130 H (70-105) mg/dL Lactic Acid (0.7-2.0) mmol/L Ammonia (25-60) umol/L Salicylates < 0.3 L (2.8-20.0) mg/dL Acetaminophen (10.0-30.0) ug/mL Plasma/Serum Alcohol (0-0.07) % 04/16/22 04/16/22 04/16/22 Range/Units 17:01 17:01 17:01 WBC (4.5-11.0) K/mm3 RBC (3.65-5.03) M/mm3 Hgb (10.1-14.3) gm/dl Hct (30.3-42.9) % MCV (79-97) fl MCH (28-32) pg MCHC (30-34) % RDW (13.2-15.2) % Plt Count (140-440) K/mm3 Lymph % (Auto) Pershing % (Auto) Eos % (Auto) Baso % (Auto) Lymph # (Auto) Pershing # (Auto) Eos # (Auto) Baso # (Auto) Seg Neutrophils % Seg Neutrophils # POC Glucose (70-105) mg/dL Lactic Acid 4.40 H* (0.7-2.0) mmol/L Ammonia (25-60) umol/L Salicylates (2.8-20.0) mg/dL Acetaminophen 5.0 L (10.0-30.0) ug/mL Plasma/Serum Alcohol < 0.01 (0-0.07) % 04/16/22 04/16/22 04/16/22 Range/Units 17:01 18:49 21:11 WBC (4.5-11.0) K/mm3 RBC (3.65-5.03) M/mm3 Hgb (10.1-14.3) gm/dl Hct (30.3-42.9) % MCV (79-97) fl MCH (28-32) pg MCHC (30-34) % RDW (13.2-15.2) % Plt Count (140-440) K/mm3 Lymph % (Auto) Pershing % (Auto) Eos % (Auto) Baso % (Auto) Lymph # (Auto) Pershing # (Auto) Eos # (Auto) Baso # (Auto) Seg Neutrophils % Seg Neutrophils # POC Glucose (70-105) mg/dL Lactic Acid 3.40 H* 4.30 H* (0.7-2.0) mmol/L Ammonia 16.0 L (25-60) umol/L Salicylates (2.8-20.0) mg/dL Acetaminophen (10.0-30.0) ug/mL Plasma/Serum Alcohol (0-0.07) % Critical care attestation.: If time is entered above; I have spent that time in minutes in the direct care of this critically ill patient, excluding procedure time. ED Disposition Clinical Impression: CHF exacerbation, Altered mental status Disposition: ADMITTED INPATIENT Is pt being admited?: No Does the pt Need Aspirin: No Condition: Stable
[2022-04-16 14:53] LABS: Hemoglobin 16.8 gm/dl (10.1-14.3); Mean Corpuscular HGB Conc 32 % (30-34); Mean Corpuscular Volume 91 fl (79-97); Platelet Count 214 K/mm3 (140-440); Red Blood Count 5.83 M/mm3 (3.65-5.03); Red Cell Distribution Width 17.4 % (13.2-15.2)
[2022-04-16] MEDS ORDERED: SODIUM CHLORIDE 0.9% 500 ML 500 ML IV ONE (15:50)
--- NOTE | 2022-04-16 16:33 | Event Note ---
Date: 04/16/22 This patient was signed out to me by ER attending physician, Dr. Ricardo Díaz. See pt's EHR for his independent evaluation of the patient. Patient is signed out to me pending resulting of her serum labs. Per his verbal report, the patient arrived altered. Baseline unknown and he states he was unable to reach family members. I evaluated the patient independently. She is morbidly obese, disheveled, and speaking in full sentences. she is A0x2 (person, place); She is not observed to be dysarthric. She is following commands and move all extremities without difficulty. Patient noted to be wearing an external portable defibrillator device, as well as noted to have peeling of the bottom of her feet. Pt's feet are discolored, and cool to touch. When asked about her feet being discolored, and feeling cool to toch, the pt states "they've been like this for about 1-2 months." She denies any pain, worsening dis MDM: I spoke to the reading radiologist, Dr. Ortiz, concerning the pt's need for a periphral arterial doppler ultrasound of her lower extremities to ascertain patient's arterial blood flow to her lower extremities. However she cannot receive per peripheral arterial ultrasound of her lower extremities given that it is in the evening and there is currently no RVT on staff at night to perform the study, and the staff members only available during regular business hours during the day. Per his verbal report to me, the patient's GFR is low and as result, she will have to receive a significantly reduced amount of IV contrast to perform a CT angio of her abdomen with runoff to her lower extremities. He states that this is not optimal as the study will be suboptimal given the lower dosage of IV contrast that will be given in this patient. Additionally he states that IV contrast places the patient at significantly higher risk of worsening renal insufficiency. He states that unless the patient requires emergent vascular surgery intervention, he is advising that the patient wait until tomorrow morning to undergo a formal peripheral arterial ultrasound of her lower extremities. Therefore CT angio abdomen with lower extremity runoff was not ordered. Patient was ordered for peripheral arterial ultrasound of lower extremities and given that there is no wind energy technician to perform the studies tonight, the patient will undergo ultrasound tomorrow morning. Patient was given furosemide intravenously for acute decompensated heart failure. Per nursing staff the patient arrived with oxygen saturation of 89% on room air. She was placed on 2 L of supplemental oxygen via nasal cannula here and she maintained her oxygen saturations at approximately 97 to 98%. Serum labs reviewed. Patient has significant lactic acidosis with etiology being unclear. The patient is noted to be intermittently confused here but the etiology is unclear. She has been accepted by , admitting information systems planner, for admission to the hospitalist service and further management.
[2022-04-16 17:44] LABS: Calcium 9.2 mg/dL (8.4-10.2)
[2022-04-16] MEDS ORDERED: SODIUM CHLORIDE 0.9% 1000 ML 1,000 ML IV ONE (18:29)
[2022-04-16] MEDS ORDERED: FUROSEMIDE 20 MG/2 ML INJ IV ONE ×2 (18:43→20:30)
[2022-04-16] MEDS ORDERED: ONDANSETRON 4 MG/2 ML INJ IV PRN (22:45)
[2022-04-16] MEDS ORDERED: ACETAMINOPHEN 325 MG TAB PO PRN (22:45)
[2022-04-16] MEDS ORDERED: MAGNESIUM HYDROXIDE (MOM) ORAL LIQD UDC PO PRN (22:45)
[2022-04-16] MEDS ORDERED: DEXTROSE 50% IN WATER (25GM) 50 ML SYRINGE IV PRN (22:45)
[2022-04-16] MEDS ORDERED: MORPHINE 4 MG/1 ML INJ IV PRN (22:45)
--- NOTE | 2022-04-16 23:07 | History and Physical Report ---
History of Present Illness Date of examination: 04/16/22 Date of admission: 04/16/2022 Chief complaint: Altered mental Status Weakness History of present illness: 66-year-old female with known history of hypertension, diabetes mellitus, arthritis, seizure disorder, CHF brought into the emergency room today for evaluation of changes in mental status generalized weakness.. Most of the history was obtained from the ER staff as patient is confused. Work-up in the emergency room today reveals potassium of 5.4, BUN of 46 and creatinine 1.3. Lactic acid of 3.4. BNP 4637. Urinalysis shows mild UTI. Chest x-ray significant for small right pleural effusion with adjacent opacities, small left pleural effusion. CT head shows no acute findings. Upon arrival in the emergency room patient was slightly hypoxic. Patient is being admitted with CHF exacerbation. Past History Past Medical History: arthritis, diabetes, GERD, heart failure, hypertension, renal failure, seizures Past Surgical History: No surgical history Social history: no significant social history Family history: no significant family history Medications and Allergies Allergies Allergy/AdvReac Type Severity Reaction Status Date / Time No Known Allergies Allergy Verified 03/18/22 16:29 Home Medications Medication Instructions Recorded Confirmed Last Taken Type AtorvaSTATin [Lipitor] 20 mg PO QHS 03/18/22 04/05/22 Unknown History Colchicine 0.6 mg PO QDAY 03/18/22 04/05/22 Unknown History Nitroglycerin [Nitrostat] 0.4 mg SL Q5M PRN 03/18/22 04/05/22 Unknown History Pantoprazole [Protonix TAB] 40 mg PO QDAY 03/18/22 04/05/22 Unknown History glipiZIDE [Glucotrol] 5 mg PO QDAY 03/18/22 04/05/22 Unknown History Furosemide [Lasix TAB] 20 mg PO QDAY #30 tab 03/21/22 04/05/22 Unknown Rx Metoprolol [Lopressor TAB] 12.5 mg PO BID #60 tablet 03/21/22 04/05/22 Unknown Rx Warfarin [Coumadin] 2.5 mg PO DAILY@1700 #30 tablet 04/10/22 Unknown Rx Active Meds: Active Medications Acetaminophen (Acetaminophen 325 Mg Tab) 650 mg PO Q4H PRN PRN Reason: Pain MILD(1-3)/Fever >100.5/LIM Dextrose (Dextrose 50% In Water (25gm) 50 Ml Syringe) 0 ml IV Q30MIN PRN; Protocol PRN Reason: Hypoglycemia Furosemide (Furosemide 40 Mg/4 Ml Inj) 40 mg IV BID@0600,1800 [facility] Insulin Human Lispro (Insulin Lispro 100 Unit/Ml) 0 unit SUB-Q ACHS MELVIN; Protocol Magnesium Hydroxide (Magnesium Hydroxide (Mom) Oral Liqd Udc) 30 ml PO Q4H PRN PRN Reason: Constipation Morphine Sulfate (Morphine 2 Mg/1 Ml Inj) 2 mg IV Q4H PRN PRN Reason: Pain, Moderate (4-6) Morphine Sulfate (Morphine 4 Mg/1 Ml Inj) 4 mg IV Q4H PRN PRN Reason: Pain , Severe (7-10) Ondansetron HCl (Ondansetron 4 Mg/2 Ml Inj) 4 mg IV Q8H PRN PRN Reason: Nausea And Vomiting Sodium Chloride (Sodium Chloride 0.9% 10 Ml Flush Syringe) 10 ml IV BID MELVIN Sodium Chloride (Sodium Chloride 0.9% 10 Ml Flush Syringe) 10 ml IV PRN PRN PRN Reason: LINE FLUSH Review of Systems ROS unobtainable: due to mental status Exam - Constitutional Vitals: Temp Pulse Resp BP Pulse Ox 92 H 15 101/70 95 04/16/22 19:55 04/16/22 19:55 04/16/22 19:55 04/16/22 20:13 General appearance: Present: no acute distress, well-nourished, obese - EENT Eyes: Present: PERRL, EOM intact. Absent: scleral icterus ENT: hearing intact, clear oral mucosa, dentition normal - Neck Neck: Present: supple, normal ROM - Respiratory Respiratory effort: normal Respiratory: bilateral: rales - Cardiovascular Rhythm: regular Heart Sounds: Present: S1 & S2. Absent: gallop, systolic murmur, diastolic murmur, rub, click - Extremities Extremities: no ischemia, pulses intact, pulses symmetrical, normal temperature, Full ROM, abnormal (Excoriation and dry scaly hyperpigmented skin over feet bilaterally.) Extremity abnormal: edema (1+ bilateral lower extremity edema) Peripheral Pulses: within normal limits - Abdominal General gastrointestinal: Present: soft, non-tender, non-distended, normal bowel sounds. Absent: mass - Integumentary Integumentary: Present: clear, warm, dry, normal turgor. Absent: rash - Musculoskeletal Musculoskeletal: strength equal bilaterally - Psychiatric Psychiatric: appropriate mood/affect, intact judgment & insight, memory intact, cooperative - Neurologic Neurologic: CNII-XII intact, no focal deficits, moves all extremities HEART Score - HEART Score Troponin: Troponin T 0.018 ng/mL (0.00-0.029) 04/16/22 Unknown Results - Labs CBC & Chem 7: 04/16/22 13:37 04/16/22 Unknown Labs: Abnormal lab results 04/16/22 04/16/22 04/16/22 Range/Units 13:37 13:47 17:01 RBC 5.83 H (3.65-5.03) M/mm3 Hgb 16.8 H (10.1-14.3) gm/dl Hct 53.0 H (30.3-42.9) % RDW 17.4 H (13.2-15.2) % Sodium (137-145) mmol/L Potassium (3.6-5.0) mmol/L Carbon Dioxide (22-30) mmol/L BUN (7-17) mg/dL Creatinine (0.6-1.2) mg/dL Glucose (65-100) mg/dL POC Glucose 130 H (70-105) mg/dL Lactic Acid (0.7-2.0) mmol/L Total Bilirubin (0.1-1.2) mg/dL Ammonia (25-60) umol/L NT-Pro-B Natriuret Pep (0-900) pg/mL Albumin (3.9-5) g/dL Salicylates < 0.3 L (2.8-20.0) mg/dL Acetaminophen (10.0-30.0) ug/mL 04/16/22 04/16/22 04/16/22 Range/Units 17:01 17:01 17:01 RBC (3.65-5.03) M/mm3 Hgb (10.1-14.3) gm/dl Hct (30.3-42.9) % RDW (13.2-15.2) % Sodium (137-145) mmol/L Potassium (3.6-5.0) mmol/L Carbon Dioxide (22-30) mmol/L BUN (7-17) mg/dL Creatinine (0.6-1.2) mg/dL Glucose (65-100) mg/dL POC Glucose (70-105) mg/dL Lactic Acid 4.40 H* (0.7-2.0) mmol/L Total Bilirubin (0.1-1.2) mg/dL Ammonia 16.0 L (25-60) umol/L NT-Pro-B Natriuret Pep (0-900) pg/mL Albumin (3.9-5) g/dL Salicylates (2.8-20.0) mg/dL Acetaminophen 5.0 L (10.0-30.0) ug/mL 04/16/22 04/16/22 Range/Units 18:49 Unknown RBC (3.65-5.03) M/mm3 Hgb (10.1-14.3) gm/dl Hct (30.3-42.9) % RDW (13.2-15.2) % Sodium 136 L (137-145) mmol/L Potassium 5.4 H (3.6-5.0) mmol/L Carbon Dioxide 16 L (22-30) mmol/L BUN 46 H (7-17) mg/dL Creatinine 1.3 H (0.6-1.2) mg/dL Glucose 102 H (65-100) mg/dL POC Glucose (70-105) mg/dL Lactic Acid 3.40 H* (0.7-2.0) mmol/L Total Bilirubin 2.80 H (0.1-1.2) mg/dL Ammonia (25-60) umol/L NT-Pro-B Natriuret Pep 4637 H (0-900) pg/mL Albumin 3.0 L (3.9-5) g/dL Salicylates (2.8-20.0) mg/dL Acetaminophen (10.0-30.0) ug/mL Assessment and Plan Assessment: 1. CHF exacerbationEF 15 to 20% on echo done in February 2022 2. Hypoxia 3. Lactic acidosis 4. Altered mental status 5. Diabetes mellitus 6. Hypertension 7. UTI Plan: 1. Patient admitted and placed on diuretics. We will monitor input and output and also monitor daily weight. 2. We will request cardiology evaluation and further recommendations. 3. Patient placed on sliding scale insulin. We will monitor Accu-Cheks. 4. We will resume routine home medications monitor vital signs closely. 5. Placed on empiric IV antibiotics for UTI. DVT prophylaxis: Subcutaneous heparin CODE STATUS: Full code
[2022-04-17 02:55] LABS: Bilirubin,Urine NEG (Negative); Blood,Urine LG (Negative); Color,Urine Yellow (Yellow)
[2022-04-17 02:58] LABS: Bacteria,Urine 1+ /HPF (Negative); Hyaline Casts,Urine 5 /LPF; Mucus,Urine FEW /HPF
[2022-04-17 03:46] LABS: Amphetamine Screen,Urine Negative; Benzodiazepines Screen,Urine Negative; Cannabinoid Screen,Urine Negative; Cocaine Screen,Urine Negative; Methadone Screen,Urine Negative; Opiate Screen,Urine Negative
[2022-04-17] MEDS ORDERED: FUROSEMIDE 40 MG/4 ML INJ IV SCH (06:00)
[2022-04-17 06:45] LABS: Calcium 9.2 mg/dL (8.4-10.2)
[2022-04-17] MEDS ORDERED: cefTRIAXone/NS 1 GM/50 ML 1 GM/50 ML BAG IV SCH (07:00)
[2022-04-17] MEDS: INSULIN LISPRO 100 UNIT/ML SUB-Q SCH ×4 (07:50→21:38)
--- NOTE | 2022-04-17 11:07 | Progress Note ---
Assessment and Plan Assessment and plan: 66-year-old female with known history of hypertension, diabetes mellitus, arthritis, seizure disorder, CHF brought into the emergency room today for evaluation of changes in mental status generalized weakness. In the emergency room, patient was noted to have potassium 5.4 and creatinine 1.3. Chest x-ray significant for small right pleural effusion with adjacent opacities, small left pleural effusion. CT head shows no acute findings. Patient was noted to be hypoxic in the emergency room Acute on chronic systolic heart failure. EF 15-20% 03/09 Acute hypoxic respiratory failure Sepsis. Patient meets criteria given the tachycardia, altered mentation and diagnosis of UTI Toxic metabolic encephalopathy Hyperkalemia UTI. Diabetes mellitus type 2 Hypertension Alzheimer's dementia 04/17/2022. Continue supplemental oxygen to maintain sats greater than 92%. The patient will be continued on IV antibiotics and follow-up blood and urine cultures. Continue IV diuresis with Lasix. Await cardiology consultation. Recheck potassium. Continue Accu-Cheks, sliding scale insulin and tight glycemic control. Cardiology reports having seen the patient on previous hospitalization and patient appears to be back to baseline with regards to mental status. Patient appears to have history of Alzheimer's dementia. Cardiology reports no further intervention from their perspective History Interval history: No new issues overnight Hospitalist Physical - Constitutional Vitals: Temp Pulse Resp BP Pulse Ox 97.5 F L 79 18 110/88 97 04/17/22 09:32 04/17/22 09:33 04/17/22 09:32 04/17/22 09:32 04/17/22 09:33 General appearance: Present: no acute distress, well-nourished, obese - EENT Eyes: Present: PERRL, EOM intact ENT: hearing intact, clear oral mucosa, dentition normal - Neck Neck: Present: supple, normal ROM - Respiratory Respiratory effort: normal Respiratory: bilateral: CTA - Cardiovascular Rhythm: regular Heart Sounds: Present: S1 & S2. Absent: gallop, rub - Extremities Extremities: no ischemia, No edema, Full ROM - Abdominal General gastrointestinal: soft, non-tender, non-distended, normal bowel sounds - Integumentary Integumentary: Present: clear, warm, dry - Neurologic Neurologic: CNII-XII intact, moves all extremities HEART Score - HEART Score Troponin: Troponin T 0.018 ng/mL (0.00-0.029) 04/16/22 Unknown Results - Labs CBC & Chem 7: 04/16/22 13:37 04/17/22 05:18 Labs: Laboratory Last Values WBC 8.3 K/mm3 (4.5-11.0) 04/16/22 13:37 RBC 5.83 M/mm3 (3.65-5.03) H 04/16/22 13:37 Hgb 16.8 gm/dl (10.1-14.3) H 04/16/22 13:37 Hct 53.0 % (30.3-42.9) H 04/16/22 13:37 MCV 91 fl (79-97) 04/16/22 13:37 MCH 29 pg (28-32) 04/16/22 13:37 MCHC 32 % (30-34) 04/16/22 13:37 RDW 17.4 % (13.2-15.2) H 04/16/22 13:37 Plt Count 214 K/mm3 (140-440) 04/16/22 13:37 Lymph % (Auto) [employer]el Bearing Maker 04/16/22 13:37 [place] % (Auto) [employer]el Bearing Maker 04/16/22 13:37 Eos % (Auto) [employer]el Bearing Maker 04/16/22 13:37 Baso % (Auto) [employer]el Bearing Maker 04/16/22 13:37 Lymph # (Auto) [employer]el Bearing Maker 04/16/22 13:37 [place] # (Auto) Jewel Bearing Maker 04/16/22 13:37 Eos # (Auto) Jewel Bearing Maker 04/16/22 13:37 Baso # (Auto) Jewel Bearing Maker 04/16/22 13:37 Seg Neutrophils % Jewel Bearing Maker 04/16/22 13:37 Seg Neutrophils # Jewel Bearing Maker 04/16/22 13:37 ABG pH 7.385 (7.320-7.450) 04/17/22 05:00 POC ABG pCO2 27.3 mmHg (32.0-48.0) L 04/17/22 05:00 POC ABG pO2 153.3 mmHg (83-108) H 04/17/22 05:00 POC ABG HCO3 16.0 04/17/22 05:00 ABG O2 Saturation 98.9 (0-100) 04/17/22 05:00 POC ABG Base Excess -7.4 04/17/22 05:00 ABG Hemoglobin 13.95 (12.0-17.5) 04/17/22 05:00 ABG Oxyhemoglobin 96.9 (94-98) 04/17/22 05:00 ABG Methemoglobin 0.5 (0.0-1.5) 04/17/22 05:00 Carboxyhemoglobin 1.5 (0.5-1.5) 04/17/22 05:00 FiO2 % 28 04/17/22 05:00 Sodium 138 mmol/L (137-145) 04/17/22 05:18 Potassium 5.5 mmol/L (3.6-5.0) H 04/17/22 05:18 Chloride 102.9 mmol/L (98-107) 04/17/22 05:18 Carbon Dioxide 18 mmol/L (22-30) L 04/17/22 05:18 Anion Gap 23 mmol/L 04/17/22 05:18 BUN 48 mg/dL (7-17) H 04/17/22 05:18 Creatinine 1.4 mg/dL (0.6-1.2) H 04/17/22 05:18 Estimated GFR 45 ml/min 04/17/22 05:18 BUN/Creatinine Ratio 34 % 04/17/22 05:18 Glucose 60 mg/dL (65-100) L 04/17/22 05:18 POC Glucose 69 mg/dL (70-105) L 04/17/22 07:49 Lactic Acid 4.20 mmol/L (0.7-2.0) H* 04/17/22 05:18 Calcium 9.2 mg/dL (8.4-10.2) 04/17/22 05:18 Total Bilirubin 2.80 mg/dL (0.1-1.2) H 04/16/22 Unknown AST 31 units/L (5-40) 04/16/22 Unknown ALT 18 units/L (7-56) 04/16/22 Unknown Alkaline Phosphatase 79 units/L (35-129) 04/16/22 Unknown Ammonia 16.0 umol/L (25-60) L 04/16/22 17:01 Troponin T 0.018 ng/mL (0.00-0.029) 04/16/22 Unknown NT-Pro-B Natriuret Pep 4637 pg/mL (0-900) H 04/16/22 Unknown Total Protein 7.4 g/dL (6.3-8.2) 04/16/22 Unknown Albumin 3.0 g/dL (3.9-5) L 04/16/22 Unknown Albumin/Globulin Ratio 0.7 % 04/16/22 Unknown Urine Color Yellow (Yellow) 04/17/22 02:15 Urine Turbidity Slightly-cloudy (Clear) 04/17/22 02:15 Urine pH 5.0 (5.0-7.0) 04/17/22 02:15 Ur Specific [place] 1.009 (1.003-1.030) 04/17/22 02:15 Urine Protein 30 mg/dl mg/dL (Negative) 04/17/22 02:15 Urine Glucose (UA) Neg mg/dL (Negative) 04/17/22 02:15 Urine Ketones Neg mg/dL (Negative) 04/17/22 02:15 Urine Blood Lg (Negative) 04/17/22 02:15 Urine Nitrite Neg (Negative) 04/17/22 02:15 Urine Bilirubin Neg (Negative) 04/17/22 02:15 Urine Urobilinogen 2.0 mg/dL (<2.0) 04/17/22 02:15 Ur Leukocyte Esterase Sm (Negative) 04/17/22 02:15 Urine WBC (Auto) 22.0 /HPF (0.0-6.0) H 04/17/22 02:15 Urine RBC (Auto) 8.0 /HPF (0.0-6.0) 04/17/22 02:15 U Epithel Cells (Auto) 1.0 /HPF (0-13.0) 04/17/22 02:15 Urine Bacteria (Auto) 1+ /HPF (Negative) 04/17/22 02:15 Hyaline Casts 5 /LPF 04/17/22 02:15 Urine Mucus Few /HPF 04/17/22 02:15 Salicylates < 0.3 mg/dL (2.8-20.0) L 04/16/22 17:01 Urine Opiates Screen Negative 04/17/22 02:15 Urine Methadone Screen Negative 04/17/22 02:15 Acetaminophen 5.0 ug/mL (10.0-30.0) L 04/16/22 17:01 Ur Barbiturates Screen Negative 04/17/22 02:15 Ur Phencyclidine Scrn Negative 04/17/22 02:15 Ur Amphetamines Screen Negative 04/17/22 02:15 U Benzodiazepines Scrn Negative 04/17/22 02:15 Urine Cocaine Screen Negative 04/17/22 02:15 U Marijuana (THC) Screen Negative 04/17/22 02:15 Drugs of Abuse Note Disclamer 04/17/22 02:15 Plasma/Serum Alcohol < 0.01 % (0-0.07) 04/16/22 17:01 Microbiology: Microbiology 04/16/22 17:01 Peripheral/Venous Blood Culture - Preliminary Culture in Progress 04/16/22 17:01 Peripheral/Venous Blood Culture - Preliminary Culture in Progress Lloyd/IV: Voiding Method Indwelling Catheter Active Medications - Current Medications Current Medications: Generic Name Dose Route Start Last Admin Trade Name Freq PRN Reason Stop Dose Admin Acetaminophen 650 mg 04/16/22 22:45 Acetaminophen 325 Mg Tab PO Q4H PRN Pain MILD(1-3)/Fever >100.5/LIM Dextrose 0 ml 04/16/22 22:45 Dextrose 50% In Water (25gm) 50 Ml Syringe IV Q30MIN PRN Hypoglycemia Protocol Furosemide 40 mg 04/17/22 06:00 04/17/22 06:30 Furosemide 40 Mg/4 Ml Inj IV 40 mg BID@0600,1800 MELVIN Administration Ceftriaxone Sodium 1 gm in 50 mls @ 100 mls/hr 04/17/22 07:00 04/17/22 10:12 Rocephin/Ns 1 Gm/50 Ml IV 100 mls/hr Q24HR MELVIN Administration Protocol Insulin Human Lispro 0 unit 04/17/22 07:30 04/17/22 07:50 Insulin Lispro 100 Unit/Ml SUB-Q Not Given ACHS MELVIN Protocol Magnesium Hydroxide 30 ml 04/16/22 22:45 Magnesium Hydroxide (Mom) Oral Liqd Udc PO Q4H PRN Constipation Morphine Sulfate 2 mg 04/16/22 22:45 Morphine 2 Mg/1 Ml Inj IV Q4H PRN Pain, Moderate (4-6) Morphine Sulfate 4 mg 04/16/22 22:45 Morphine 4 Mg/1 Ml Inj IV Q4H PRN Pain , Severe (7-10) Ondansetron HCl 4 mg 04/16/22 22:45 Ondansetron 4 Mg/2 Ml Inj IV Q8H PRN Nausea And Vomiting Sodium Chloride 10 ml 04/17/22 10:00 04/17/22 10:12 Sodium Chloride 0.9% 10 Ml Flush Syringe IV 10 ml BID MELVIN Administration Sodium Chloride 10 ml 04/16/22 22:45 Sodium Chloride 0.9% 10 Ml Flush Syringe IV PRN PRN LINE FLUSH
--- NOTE | 2022-04-17 11:31 | Vascular Lab Report ---
DUPLEX DOPPLER LOWER EXTREMITY ARTERIAL, BILATERAL INDICATION: no palpable pulses in distal b/l LE; r/o acute isc. TECHNIQUE: Arterial duplex examination of both lower extremities performed using B-mode, color flow and spectral Doppler assessment. FINDINGS: RIGHT: Common Femoral Artery: PSV 68 cm/sec. Triphasic waveform. Proximal SFA: PSV 66 cm/sec. Triphasic waveform. Mid SFA: PSV 63 cm/sec. Biphasic waveform. Distal SFA: PSV 57 cm/sec. Biphasic waveform. Popliteal artery: PSV 36 cm/sec. Monophasic waveform. Posterior tibial artery: Occluded Dorsalis Pedis Artery: PSV 10 cm/sec. Monophasic waveform. LEFT: Common Femoral Artery: PSV 72 cm/sec. Triphasic waveform. Proximal SFA: PSV 88 cm/sec. Triphasic waveform. Mid SFA: PSV 79 cm/sec. Biphasic waveform. Distal SFA: PSV 64 cm/sec. Monophasic waveform. Popliteal artery: PSV 39 cm/sec. Monophasic waveform. Posterior tibial artery: Occluded Dorsalis Pedis Artery: PSV 4 cm/sec. Monophasic waveform. IMPRESSION: Bilateral posterior tibial arteries appear occluded. There is monophasic flow from the popliteal artery distally in the right lower extremity and the dist al superficial femoral artery distally in the left lower extremity. Doppler Waveform: * Triphasic is normal. * Biphasic is abnormal if clear transition from triphasic signal along vascular tree. * Monophasic is abnormal. Signer Name: Luis Antonio Dunham Jr, MD Signed: 04/17/2022 11:27 AM Workstation Name: [id number]
--- NOTE | 2022-04-17 11:49 | Electrocardiograph Report ---
[facility] Test Date: 2022-04-16 Test Time: 13:36:28 Pat Name: CJ GARCÍA Department: Room: A484 Gender: F Candy Department Manager: 0000 : 1955 Requested By: JOSE RAMON RANKIN Order Number: [id number] Reading MD: Xavier To Measurements Intervals [place] Rate: 108 P: 54 RI: 195 QRS: 3 QRSD: 83 T: QT: 348 QTc: 454 Interpretive Statements Sinus tachycardia Paired ventricular premature complexes Nonspecific T abnrm, anterolateral leads Compared to ECG 04/09/2022 13:46:19 Sinus rhythm no longer present Myocardial infarct finding no longer present Electronically Signed On 04-17-2022 8:49:52 PDT by Xavier To
--- NOTE | 2022-04-17 14:36 | Consultation ---
History of Present Illness Consult date: 04/17/22 Requesting physician: NIMISHA PACK Consult reason: congestive heart failure History of present illness: Patient 66-year-old female with a past medical history of HFrEF, LV thrombus on echo, hypertension, diabetes, history of seizures, dementia, obesity who presents to the ED with a complaint of generalized weakness. History is taken from chart due to patient's mental status at time of interview. Patient however did indicate she was having pain in her legs. Patient was discharged from hospital on 04/10/2022 after being admitted for similar complaints. In the ED patient's labs showed to have elevated lactic acid, elevated BNP, CXR read as CHF however CT of abdomen suggests suspicious for pneumonia. Patient apparently follows with [facility] however was seen previously by our group during recent admission February. Cardiology is consulted for CHF. Past History Past Medical History: arthritis, diabetes, GERD, heart failure, hypertension, renal failure, seizures, other (LV thrombus on echo) Past Surgical History: No surgical history Social history: lives with family Family history: no significant family history Medications and Allergies Allergies Allergy/AdvReac Type Severity Reaction Status Date / Time No Known Allergies Allergy Verified 03/18/22 16:29 Home Medications Medication Instructions Recorded Confirmed Last Taken Type AtorvaSTATin [Lipitor] 20 mg PO QHS 03/18/22 04/05/22 Unknown History Colchicine 0.6 mg PO QDAY 03/18/22 04/05/22 Unknown History Nitroglycerin [Nitrostat] 0.4 mg SL Q5M PRN 03/18/22 04/05/22 Unknown History Pantoprazole [Protonix TAB] 40 mg PO QDAY 03/18/22 04/05/22 Unknown History glipiZIDE [Glucotrol] 5 mg PO QDAY 03/18/22 04/05/22 Unknown History Furosemide [Lasix TAB] 20 mg PO QDAY #30 tab 03/21/22 04/05/22 Unknown Rx Metoprolol [Lopressor TAB] 12.5 mg PO BID #60 tablet 03/21/22 04/05/22 Unknown Rx Warfarin [Coumadin] 2.5 mg PO DAILY@1700 #30 tablet 04/10/22 Unknown Rx Active Meds: Active Medications Acetaminophen (Acetaminophen 325 Mg Tab) 650 mg PO Q4H PRN PRN Reason: Pain MILD(1-3)/Fever >100.5/LIM Aspirin (Aspirin 81 Mg Tab Chew) 81 mg PO QDAY [facility] Atorvastatin Calcium (Atorvastatin 20 Mg Tab) 20 mg PO QHS [facility] Dextrose (Dextrose 50% In Water (25gm) 50 Ml Syringe) 0 ml IV Q30MIN PRN; Protocol PRN Reason: Hypoglycemia Furosemide (Furosemide 40 Mg Tab) 40 mg PO QDAY [facility] Ceftriaxone Sodium (Rocephin/Ns 1 Gm/50 Ml) 1 gm in 50 mls @ 100 mls/hr IV Q24HR [facility]; Protocol Last Admin: 04/17/22 10:12 Dose: 100 mls/hr Insulin Human Lispro (Insulin Lispro 100 Unit/Ml) 0 unit SUB-Q ACHS [facility]; Protocol Last Admin: 04/17/22 12:23 Dose: Not Given Magnesium Hydroxide (Magnesium Hydroxide (Mom) Oral Liqd Udc) 30 ml PO Q4H PRN PRN Reason: Constipation Metoprolol Tartrate (Metoprolol Tartrate 25 Mg Tab) 12.5 mg PO BID [facility] Morphine Sulfate (Morphine 2 Mg/1 Ml Inj) 2 mg IV Q4H PRN PRN Reason: Pain, Moderate (4-6) Morphine Sulfate (Morphine 4 Mg/1 Ml Inj) 4 mg IV Q4H PRN PRN Reason: Pain , Severe (7-10) Ondansetron HCl (Ondansetron 4 Mg/2 Ml Inj) 4 mg IV Q8H PRN PRN Reason: Nausea And Vomiting Sodium Chloride (Sodium Chloride 0.9% 10 Ml Flush Syringe) 10 ml IV BID [facility] Last Admin: 04/17/22 10:12 Dose: 10 ml Sodium Chloride (Sodium Chloride 0.9% 10 Ml Flush Syringe) 10 ml IV PRN PRN PRN Reason: LINE FLUSH Review of Systems Constitutional: no weight loss, no weight gain Ears, nose, mouth and throat: no sinus pressure, no sinus pain Cardiovascular: no chest pain, no shortness of breath, no dyspnea on exertion Respiratory: no shortness of breath, no dyspnea on exertion Gastrointestinal: no abdominal pain, no nausea, no vomiting Musculoskeletal: other (Bilateral lower extremity pain), no neck stiffness, no neck pain Integumentary: no rash, no pruritis, no redness Neurological: weakness, confusion, other Psychiatric: no anxiety, no memory loss Endocrine: no cold intolerance, no heat intolerance Hematologic/Lymphatic: no easy bruising, no easy bleeding Physical Examination Vital Signs Pulse Resp BP Pulse Ox 102 H 18 112/72 96 04/16/22 11:52 04/16/22 11:52 04/16/22 11:52 04/16/22 11:52 General appearance: no acute distress Neck: Positive: trachea midline Cardiac: Positive: Reg Rate and Rhythm Lungs: Positive: Normal Breath Sounds Neuro: Positive: Grossly Intact Abdomen: Positive: Soft Skin: Negative: Rash, Suspicious Lesions, Ulceration Extremities: Present: upper extr. pulses, Cool. Absent: edema Results 04/16/22 13:37 04/17/22 05:18 Cardiac Enzymes 04/16/22 Range/Units Unknown AST 31 (5-40) units/L CBC 04/16/22 Range/Units 13:37 WBC 8.3 (4.5-11.0) K/mm3 RBC 5.83 H (3.65-5.03) M/mm3 Hgb 16.8 H (10.1-14.3) gm/dl Hct 53.0 H (30.3-42.9) % Plt Count 214 (140-440) K/mm3 Lymph # (Auto) Advertising Strategist [place] # (Auto) Advertising Strategist Eos # (Auto) Advertising Strategist Baso # (Auto) Advertising Strategist Comprehensive Metabolic Panel 04/16/22 04/17/22 Range/Units Unknown 05:18 Sodium 136 L 138 (137-145) mmol/L Potassium 5.4 H 5.5 H (3.6-5.0) mmol/L Chloride 101.0 102.9 (98-107) mmol/L Carbon Dioxide 16 L 18 L (22-30) mmol/L BUN 46 H 48 H (7-17) mg/dL Creatinine 1.3 H 1.4 H (0.6-1.2) mg/dL Glucose 102 H 60 L (65-100) mg/dL Calcium 9.2 9.2 (8.4-10.2) mg/dL AST 31 (5-40) units/L ALT 18 (7-56) units/L Alkaline Phosphatase 79 (35-129) units/L Total Protein 7.4 (6.3-8.2) g/dL Albumin 3.0 L (3.9-5) g/dL - Imaging and Cardiology Echo: report reviewed EKG: report reviewed, image reviewed EKG interpretations - Telemetry EKG Rhythm: Sinus Rhythm - EKG Sinus rhythms and dysrhythmias: sinus rhythm Ventricular dysrhythmias: ventricular premature com Assessment and Plan Patient 66-year-old female with a past medical history of HFrEF, LV thrombus on echo, hypertension, diabetes, history of seizures, dementia, obesity who presents to the ED with a complaint of generalized body pain Sepsis UTI Chronic HFrEF- Hypertension Diabetes Obesity LV Thrombus- on warfarin as an outpatient Dementia PVD?-Vascular consulted Echo 03/17/2022-EF 15 to 20%. LV is moderately dilated. Severe global hypokinesis of LV. Right ventricular systolic function is mildly reduced. Right ventricle is dilated. Mild to moderate tricuspid regurgitation. Large mobile mass in inferobasal area thrombus noted in LV Plan: EKG shows sinus tach 108 with PVCs nonspecific T abnormalities no acute ischemic changes. Patient not indicating any complaints of chest pain BNP noted to be elevated however patient also appears near euvolemic on exam with no bilateral lower extremity edema. Patient was given Lasix IV and not noted to have significant urine output. Will stop IV Lasix and convert to Lasix 40 mg p.o. daily. Strict I&O's, daily weights, and repeat BMP in the a.m. with close monitoring of renal function Initiate metoprolol 12.5 mg p.o. twice daily, atorvastatin, asa Hold KATHARINA or ARB due to low/soft BP and elevated creatinine Per Echo results on 03/17/2022- show thrombus in LV anticoagulation with heparin bridge therapy to Coumadin pharmacy to dose. Goal INR 2.5-3.5 Cardiac status otherwise stable we will see as needed Patient in conjunction with Dr. Neff who agrees with plan of care - Patient Problems (1) Sepsis Current Visit: Yes Status: Acute (2) UTI (urinary tract infection) Current Visit: Yes Status: Acute (3) Diabetes Current Visit: No Status: Acute (4) HFrEF (heart failure with reduced ejection fraction) Current Visit: No Status: Acute (5) Hypertension Current Visit: No Status: Acute Qualifiers: Hypertension type: primary hypertension Qualified Code(s): I10 - Essential (primary) hypertension (6) Obesity hypoventilation syndrome Current Visit: No Status: Acute (7) Vascular dementia Current Visit: No Status: Acute Qualifiers: Dementia behavioral disturbance: with behavioral disturbance Qualified Code(s): F01.51 - Vascular dementia with behavioral disturbance
[2022-04-17] MEDS ORDERED: HEPARIN BOLUS 10,000 UNIT/10 ML VIAL IV ONE ×3 (15:16→21:40)
[2022-04-17] MEDS ORDERED: HEPARIN/ 0.45% NACL DRIP 25,000 UNIT/250 ML BAG IV SCH (16:00)
[2022-04-17] MEDS: MORPHINE 2 MG/1 ML INJ IV PRN ×2 (16:56→21:43)
[2022-04-17 20:16] LABS: Hematocrit 43.8 % (30.3-42.9); Hemoglobin 13.5 gm/dl (10.1-14.3)
[2022-04-17 20:41] VITALS: BP 98/53
[2022-04-17 20:49] LABS: INR 2.01 (0.87-1.13); Partial Thromboplastin Time 33.8 Sec. (24.2-36.6)
[2022-04-17] MEDS ORDERED: METOPROLOL TARTRATE 25 MG TAB PO SCH (22:00)
[2022-04-18] MEDS ORDERED: FUROSEMIDE 40 MG TAB PO SCH (10:00)
[2022-04-18] MEDS ORDERED: ASPIRIN 81 MG TAB CHEW PO SCH (10:00)
== END 2022-04-17 23:12 | disposition home health service (06) | DRG 871 ==
LOC: ED 11:49 → 4A 22:45
PROVIDERS: ADMIT Internal Medicine Geriatric Medicine; ATTEND Hospitalist
DX: A41.9 Sepsis, unspecified organism (principal); G92.8 Other toxic encephalopathy; J96.01 Acute respiratory failure with hypoxia; I50.23 Acute on chronic systolic (congestive) heart failure; N17.0 Acute kidney failure with tubular necrosis; R57.1 Hypovolemic shock; J15.6 Pneumonia due to other Gram-negative bacteria; E87.2 Acidosis; E66.2 Morbid (severe) obesity with alveolar hypoventilation; Z68.41 Body mass index [BMI] 40.0-44.9, adult; N30.00 Acute cystitis without hematuria; I11.0 Hypertensive heart disease with heart failure; E11.9 Type 2 diabetes mellitus without complications; E87.5 Hyperkalemia; G30.9 Alzheimer's disease, unspecified; F02.80 Dementia in other diseases classified elsewhere, unspecified severity, without behavioral disturbance, psychotic disturbance, mood disturbance, and anxiety; K21.9 Gastro-esophageal reflux disease without esophagitis; M19.90 Unspecified osteoarthritis, unspecified site; G40.909 Epilepsy, unspecified, not intractable, without status epilepticus; Z79.01 Long term (current) use of anticoagulants
CPT/HCPCS: 36415; 36600; 70450; 71045; 80048; 80053; 80307; 80320; 81001; 82140; 82805; 82962; 83735; 83880; 84484; 85014; 85018; 85025; 85049; 85610; 85730; 87040; 87086; 93005; 93925; 94760; G0378; J3490; Q9967; G0480; J0696; J1644; J1815; J1940; J2270; J7030; J7040